=== PATIENT | male | born 1940 | race Caucasian/White ===

== ENCOUNTER 2024-06-23 02:08 | Emergency (ER) | payer OTHER, SELFPAY ==
--- NOTE | ~2024-06-23 | CT_ITS ---
EXAMINATION: CT brain wo con DATE: 06/23/2024 04:23 INDICATION: Fall. TECHNIQUE: Computed tomography (CT) of the head was performed without intravenous contrast. The mA wa s adjusted according to patient size. Iterative reconstruction technique was employed. The dose-lengt h product was 756.67 mGy-cm. COMPARISON: None FINDINGS: There are old infarcts in the right frontal, parietal, and occipital lobes, right basal dean glia, and anterior limb right internal capsule. There is no intracranial hemorrhage, acute infarction , or abnormal intracranial mass lesion. There are scattered areas of low attenuation in the cerebral white matter, which is within normal limits for the patient's age. There is ex vacuo dilatation of ri ght lateral ventricle. There are likely changes of ocular lens replacement surgeries. There is mild m ucosal thickening in the paranasal sinuses. The mastoid air cells are normal. IMPRESSION: 1. 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 Reviewed, dictated and finalized at location A. TIAN BLIND ASSEMBLER IMPRESSION: 1. 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
--- NOTE | ~2024-06-23 | XR_ITS ---
EXAMINATION: XR knee LT 3V DATE: 06/23/2024 04:52 INDICATION: Fall. TECHNIQUE: 4 views of left knee were obtained. COMPARISON: None. FINDINGS: Alignment is normal. No fracture. The patella is bipartite. There is mild tricompartmental osteoarthritis. There is a small knee joint effusion. IMPRESSION: 1. Mild left knee osteoarthritis. 2. Small left knee joint effusion. Reviewed, dictated and finalized at location A. TS MEDICINE COORDINATOR
--- NOTE | ~2024-06-23 | XR_ITS ---
EXAMINATION: XR hip LT 2V w AP pelvis DATE: 06/23/2024 04:52 INDICATION: Fall. TECHNIQUE: An anteroposterior view of the pelvis and 2 views of left hip were obtained. COMPARISON: None. FINDINGS: There is lumbar levocurvature and severe spondylosis. No fracture. There is mild osteoarthr itis of the hips. IMPRESSION: 1. Mild osteoarthritis of the hips. Reviewed, dictated and finalized at location A. THERAPIST
[2024-06-23 02:15] VITALS: BP 98/58; PULSE 84; RESP 16; TEMP 36.8; O2SAT 97
--- NOTE | 2024-06-23 02:15 | ECG_ITS ---
Test Date: 2024-06-23 02:18:58 Measurements Intervals [place] Rate: 84 P: -30 MA: 153 QRS: 20 QRSD: 86 T: 62 QT: 351 QTc: 416 Interpretive Statements SINUS RHYTHM NORMAL ECG No previous ECG available for comparison Electronically Signed On 06-23-2024 10:02:36 [employer] by Lisandro Hutchins D.O.
[2024-06-23 02:36] LABS: Basophils Absolute Auto 0.1 K/mm3 (0.0-0.1); Basophils Percent Auto 0.8 % (0.2-1.2); Eosinophils Absolute Auto 0.3 K/mm3 (0-0.3); Eosinophils Percent Auto 3.7 % (0-4.4); Hematocrit 37.9 % (42.0-52.0); Immature Granulocyte Absolute 0.03 K/mm3 (0.00-0.031); Immature Granulocyte Percent A 0.4 % (0-0.5); Lymphocytes Absolute Auto 2.89 K/mm3 (0.9-3.2); Lymphocytes Percent Auto 36.8 % (18.3-44.2); Mean Corpuscular HGB Conc 34.3 g/dl (32-36); Mean Corpuscular Hemoglobin 30.2 pg (26-34); Mean Corpuscular Volume 88.1 fl (80-100); Mean Platelet Volume 9.4 fl (7.4-10.4); Monocytes Absolute Auto 0.9 K/mm3 (0.1-0.6); Neutrophils Absolute Auto 3.7 K/mm3 (1.3-6.7); Neutrophils Percent Auto 46.3 % (45.5-73.1); Platelet Count Result 236 k/mm3 (150-375); Red Cell Distribution Width 11.7 % (11.5-14.5); White Blood Count 7.9 K/mm3 (4.5-10.0)
--- OUTSIDE RECORDS SUMMARY | 2024-06-23 02:43 | XMS_ITS | Encounter Summary ---
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 This section includes the names of all active insurance providers for the patient. Insurance Provider Type of Coverage Plan Name Start of Policy Coverage End of Policy Coverage Group Number Member ID Insurance Provider's Telephone Number Policy Ballesteros's Name Patient's Relationship to Policy Ballesteros MEDICARE (WNR) MEDICARE (M) PART A Dec 21, 2002 PART A [id number] [facility] JAK LUNA PATIENT MEDICARE (WNR) MEDICARE (M) PART A Dec 21, 2002 PART A [id number] [phone] [id number] JAK LUNA PATIENT Selected Encounter This section includes the information on record at [place] for the Encounter. Date/Time Encounter Type Encounter Description Reason Provider Source Jun 08, 2024 01:00 PM OFFICE O/P NEW MOD 45 MIN PRIMARY CARE/MEDICINE ICD-10-CM E78.5 Hyperlipidemia, unspecified [place],THERE [facility] I[facility] Encounter Template Text not used by [place] Assessments - Encounter Diagnoses This section includes the primary and secondary diagnoses documented for the Encounter. Date/Time Primary/Secondary Diagnosis Diagnosis Name Provider Source Jun 08, 2024 01:54 PM PRIMARY Hyperlipidemia, unspecified [facility]IDE,THERE [facility] Jun 08, 2024 01:54 PM SECONDARY Benign prostatic hyperplasia without lower urinry tract symp [place]IDE,THERE [facility] Jun 08, 2024 01:54 PM SECONDARY Cerebral infarction, unspecified [place]QUAIDE,THERE [facility] Jun 08, 2024 01:54 PM SECONDARY Essential (primary) hypertension [place]QUAIDE,THERE [facility] Jun 08, 2024 01:54 PM SECONDARY Mixed incontinence MCQUAIDE,THERE [facility] Jun 08, 2024 01:54 PM SECONDARY Other vitamin B12 deficiency anemias [place]QUAIDE,THERE [facility] Plan of Treatment: Future Appointments (+ 6 months) and Future Tests (+/- 45 days) The Plan of Treatment section includes future care activities for the patient from all [place] [facility] This section includes future appointments and future orders which are active, pending or scheduled. Future Appointments This section includes appointments that were scheduled to occur 6 months from the date of the Encounter, up to a maximum of 20 appointments. The data comes from all [facility]. Appointment Date/Time Appointment Type Appointme nt Facility Name October 18, 2024 08:00 AM AMBULATORY - NONE [facility] October 18, 2024 09:00 AM AMBULATORY - MEDICINE [facility] NEELIMA [facility] Active, Pending, and Scheduled Orders This section includes a listing of several types of active, pending, and scheduled orders, including clinic medications orders, diagnostic test orders, procedure orders and consult orders; where the start date of the order is 45 days before the date of the Encounter or 45 days after the date of theEncounter. The data comes from all [facility]. Test Date/Time Test Type Test Details Facility Name Jun 08, 2024 12:00 AM Laboratory - Chemi stry Order URINALYSIS (STL-PB) URINE - CLEAN CATCH [facility] Jun 08, 2024 12:00 AM Laboratory - Chemi stry Order MICRAL/CREAT PROFILE (STL) URINE YELLOW [facility] Jun 08, 2024 12:00 AM Laboratory - Chemi stry Order B12 GOLD/RED SST SERUM SP [facility] Lab Results: +/- 30 days of the encounter This section includes the Chemistry and Hematology Lab Results on record with [place] for the patient. Radiology Reports and Pathology Reports are provided separately, in subsequent sections. Lab Results This section contains the Chemistry/Hematology Results that were resulted 30 days before or 30 daysafter the date of the Encounter. Date/Time Source Result Type Result - Unit Interpretation Reference Range Comment Jun 08, 2024 02:10 PM [facility] CBC Specimen Type: BLOOD No comment entered. Ordering Provider: ASHLEY SCHNEIDER NAE Report Released Date/Time: Jun 08, 2024 07:39 AM Reporting Lab: [facility] [facility] [phone] Performing Lab: [facility] #1 [facility] [phone] WBC 9.1 10*3/uL 3.6-11.2 RBC 4.54 10*6/uL 4.10-5.70 HGB 13.6 g/dL 13.1-16.8 HCT 39.4 38.2-48.4 MCV 86.8 fL 80.0-100.0 MCH 30.0 pg 27.0-34.0 MCHC 34.5 g/dL 33.0-36.0 PLT 271 10*3/uL 150-400 MPV 9.1 fL 7.5-11.2 RDW 11.6 L 11.8-15.1 LYMPHOCYTES, AUTO % 35 MONOCYTES, AUTO % 9 NEUTROPHILS, AUTO % 54 EOSINOPHILS, AUTO % 1 BASOPHILS, AUTO % 1 LYMPHOCYTES, ABSOLUTE 3.15 10*3/uL 0.77-4.50 MONOCYTES, ABSOLUTE 0.85 10*3/uL H 0.19-0.80 NEUTROPHILS, ABSOLUTE 4.93 10*3/uL 2.10-8.00 EOSINOPHILS, ABSOLUTE 0.11 10*3/uL 0.00-0.60 BASOPHILS, ABSOLUTE 0.06 10*3/uL 0.00-0.20 Jun 08, 2024 02:10 PM [facility] COMPREHENSIVE METABOLIC PANEL Specimen Type: PLASMA Comment: No hemolysis noted. Ordering Provider: ASHLEY SCHNEIDER NAE Report Released Date/Time: Jun 08, 2024 07:39 AM Reporting Lab: [facility] [phone] Performing Lab: [facility] #1 [place] [address] CREATININE 0.91 mg/dL 0.70-1.30 UREA NITROGEN 16.5 mg/dL 9.0-25.0 GLUCOSE 97 mg/dL 72-99 SODIUM 139 meq/L 136-145 POTASSIUM 4.0 meq/L 3.5-5.0 CHLORIDE 106 meq/L 98-107 CARBON DIOXIDE 23 meq/L 22-31 CALCIUM 10.1 mg/dL 8.4-10.4 PROTEIN 7.6 g/dL 6.0-8.6 ALBUMIN 4.0 g/dL 3.4-5.0 TOTAL BILIRUBIN 0.5 mg/dL 0.2-1.2 ALKALINE PHOSPHATASE 45 U/L 40-150 AST/SGOT 26 U/L 5-34 ALT/SGPT 9 U/L 8-40 EGFR (CKD-EPI 2020) 82.08 >60 Jun 08, 2024 02:10 PM [facility] TSH (MA-PB) Specimen Type: SERUM No comment entered. Ordering Provider: AUBRIE SCHNEIDER Report Released Date/Time: Jun 08, 2024 07:39 AM Reporting Lab: [facility]1 [facility] [phone] Performing Lab: [facility] #1 [place] [phone] TSH 3.557 u[IU]/mL 0.470-5.000 Jun 08, 2024 02:10 PM [facility] B12 Specimen Type: SERUM No comment entered. Ordering Provider: AUBRIE SCHNEIDER Report Released Date/Time: Jun 08, 2024 07:39 AM Reporting Lab: [facility] [facility] [phone] Performing Lab: [facility] #1 [place] [phone] B12 1214 pg/mL H 213-816 Jun 08, 2024 02:10 PM [facility] LIPID PANEL (STL) Specimen Type: PLASMA Comment: No hemolysis noted. Ordering Provider: ASHLEY SCHNEIDER NAE Report Released Date/Time: Jun 08, 2024 07:39 AM Reporting Lab: [facility] [facility] [phone] Performing Lab: [facility]1 [facility] [phone] CHOLESTEROL 192 mg/dL 0-200 TRIGLYCERIDE 104 mg/dL 0-150 CALCULATED LDL 115 mg/dL See Interp HDL(New) 56 mg/dL > 40 Jun 08, 2024 02:10 PM [facility] HGA1C Specimen Type: BLOOD No comment entered. Ordering Provider: ASHLEY SCHNEIDER NAE Report Released Date/Time: Jun 08, 2024 07:39 AM Reporting Lab: [facility] [facility] [phone] Performing Lab: [facility] #1 [facility] [phone] HGA1C 6.2 H 4.0-6.0 Jun 08, 2024 02:10 PM [facility] VITAMIN D, 25-HYDROXY Specimen Type: SERUM No comment entered. Ordering Provider: ASHLEY SCHNEIDER NAE Report Released Date/Time: Jun 08, 2024 07:39 AM Reporting Lab: [facility] [facility] [phone] Performing Lab: [facility] #1 [facility] [phone] VITAMIN D, 25-HYDROXY 43.7 ng/mL 30-96 Jun 08, 2024 02:10 PM [facility] FOLATE (STL-MA) Specimen Type: SERUM No comment entered. Ordering Provider: ASHLEY SCHNEIDER NAE Report Released Date/Time: Jun 08, 2024 01:32 PM Reporting Lab: [facility]1 [facility] [phone] Performing Lab: [facility] #1 [facility] [phone] FOLATE (STL-MA) 38.6 ng/mL H 7-20 Vital Signs: All taken on the encounter date This section contains inpatient and outpatient Vital Signs collected on the date of the Encounter. Date/Time Temperature Pulse Blood Pressure Respiratory Rate SP02 Pain Height Weight Body Mass Index Source Jun 08, 2024 12:56 PM 98 96 100/69 20 95 4 68 185.9 28 [facility] Social History: Smoking Status (Most current) and Tobacco Use (All prior to encounter date) This section includes the most current, and the historical, smoking and tobacco- related health factors from the [place] facility where the Encounter took place. Current Smoking Status This section includes the most current smoking, or tobacco-related health factor, from the [place] facility where the Encounter took place. Date/Time Current Smoking Status Comment Nathaniel meek Jun 08, 2024 01:00 PM VA-TOBACCO USE FOR SARAH CIGARETTES [facility] Tobacco Use History This section includes a history of the smoking, or tobacco-related health factors, that were collected on or before the date of the Encounter. The data comes from the [place] facility where the Encounter took place. Date/Time Smoking Status/Tobacco Use Comment F tae Jun 08, 2024 01:00 PM VA-TOBACCO USE FOR SARAH CIGARETTES [facility] Encounter Notes: All associated encounter notes This section contains the clinical notes associated to the Encounter. Date/Time Encounter Note(s) Provider Source Jun 18, 2024 02:15 PM PHYSICIAN LETTERS: LOCAL TITLE: TEST RESULT GENERAL LETTER STL STANDARD TITLE: PHYSICIAN LETTERS DATE OF NOTE: JUN 18, 2024@14:15 ENTRY DATE: JUN 18, 2024@14:15:51 AUTHOR: NANDA SCHNEIDER COSIGNER: URGENCY: STATUS: COMPLETED [facility] [address] [place] [address] JUN 18, 2024 JAK COTA [address] [place], [place] [address] Dear Jak Cota, I would like to update you on your recent test results. LIPID PROFILE - High cholesterol and triglycerides (lipids) are risk factors for heart disease. Your cholesterol should fall between 140 and 200, and your triglycerides levels should be less than or equal to 150. HDL is the good cholesterol and should ideally be greater than 40. LDL is the bad cholesterol and optimal levels should be less than 100 (near optimal is between 100 and 129). TRIGLYCERIDE 104 mg/dL 06/08/2024 14:10 CHOLESTEROL 192 mg/dL 06/08/2024 14:10 HDL(New) 56 mg/dL 06/08/2024 14:10 CALCULATED LDL 115 mg/dL 06/08/2024 14:10 These readings are within normal limits. Continue taking Simvastatin, same dose . GLUCOSE - Your blood sugar or glucose level result GLUCOSE GLUCOSE 97 mg/dL 06/08/2024 14:10 These readings are within normal limits. HEMOGLOBIN A1C - Gives us information about your diabetes (sugar or glucose) control over the past 3 months. Your target is to keep your A1C below 6 %. HGA1C 6.2 H % 06/08/2024 14:10 These readings are within normal limits. -- The HgA1c was mildly elevated, you have Prediabetes, will monitor for now. No treatment due to advanced age. CBC - A complete blood count (CBC) gives important information about the kinds and numbers of cells in the blood, especially red blood cells, white blood cells, and platelets. HGB 13.6 g/dL 06/08/2024 14:10 HEMATOCRIT 39.4 % (06/08/24 14:10) PLT 271 10*3/uL 06/08/2024 14:10 WHITE BLOOD COUNT 9.1 10*3/uL (06/08/24 14:10) These readings are within normal limits. B12 - Helps maintain healthy nerve cells, red blood cells, and is also needed to make DNA. B12 1214 H pg/mL 06/08/2024 14:10 These results are abnormal. B12 is mildly elevated, will monitor for now. CHEM 7 - This is important information about the current status of your kidneys, liver, and electrolyte and acid/base balance as well as of your blood sugar and blood proteins. SODIUM 139 mEq/L 06/08/2024 14:10 POTASSIUM 4.0 mEq/L 06/08/2024 14:10 CHLORIDE 106 mEq/L 06/08/2024 14:10 UREA NITROGEN 16.5 mg/dL 06/08/2024 14:10 CREATININE 0.91 mg/dL 06/08/2024 14:10 CALCIUM 10.1 mg/dL 06/08/2024 14:10 CARBON DIOXIDE 23 mEq/L 06/08/2024 14:10 GLUCOSE 97 mg/dL 06/08/2024 14:10 EGFR (CKD-EPI 2020) 82.08 06/08/2024 14:10 These readings are within normal limits. LIVER FUNCTION PANEL - These are tests for liver function: PROTEIN 7.6 g/dL 06/08/2024 14:10 ALBUMIN 4.0 g/dL 06/08/2024 14:10 TOTAL BILIRUBIN 0.5 mg/dL 06/08/2024 14:10 ALKALINE PHOSPHATASE 45 U/L 06/08/2024 14:10 AST/SGOT 26 U/L 06/08/2024 14:10 ALT/SGPT 9 U/L 06/08/2024 14:10 These readings are within normal limits. TSH - Thyroid-stimulating hormone (also known as TSH or thyrotropin) is a peptide hormone synthesized and secreted by thyrotrope cells in the anterior pituitary gland, which regulates the endocrine function of the thyroid gland. TSH TSH 3.557 uIU/mL 06/08/2024 14:10 These readings are within normal limits. VITAMIN D - Helps promote the proper utilization of calcium and phosphorus, thereby producing proper bone maintenance. VITAMIN D, 25-HYDROXY 43.7 ng/mL 06/08/2024 14:10 These readings are within normal limits. PLAN Please continue your treatment as we discussed during your visit. If you have any questions please call your counter caser. I look forward to seeing you at your next clinic appointment. Thank you for choosing the [facility] for your healthcare. FUTURE APPOINTMENTS: 12/13/2024 14:00 BREANNE-PACT E3 PCP Sincerely, NANDA BARRIGA [facility] ADULT NURSE PRACTITIONER JAK COTA [facility] Jun 15, 2024 01:02 PM PHYSICIAN LETTERS: LOCAL TITLE: TEST RESULT GENERAL LETTER ST STANDARD TITLE: PHYSICIAN LETTERS DATE OF NOTE: JUN 15, 2024@13:02 ENTRY DATE: JUN 15, 2024@13:02:33 AUTHOR: NANDA SCHNEIDER EXP COSIGNER: URGENCY: STATUS: COMPLETED [facility] [address] [place] [address] JUN 15, 2024 JAK COTA [address] [place], [place] [address] Dear Jak Cota, I would like to update you on your recent test results. LIPID PROFILE - High cholesterol and triglycerides (lipids) are risk factors for heart disease. Your cholesterol should fall between 140 and 200, and your triglycerides levels should be less than or equal to 150. HDL is the good cholesterol and should ideally be greater than 40. LDL is the bad cholesterol and optimal levels should be less than 100 (near optimal is between 100 and 129). TRIGLYCERIDE 104 mg/dL 06/08/2024 14:10 CHOLESTEROL 192 mg/dL 06/08/2024 14:10 HDL(New) 56 mg/dL 06/08/2024 14:10 CALCULATED LDL 115 mg/dL 06/08/2024 14:10 These readings are within normal limits. GLUCOSE - Your blood sugar or glucose level result GLUCOSE GLUCOSE 97 mg/dL 06/08/2024 14:10 These readings are within normal limits. HEMOGLOBIN A1C - Gives us information about your diabetes (sugar or glucose) control over the past 3 months. Your target is to keep your A1C below 6 %. HGA1C 6.2 H % 06/08/2024 14:10 These results are abnormal. -- Be mindful of your diet, you have Prediabetes -- reduce carbohydrate intake in your diet . CBC - A complete blood count (CBC) gives important information about the kinds and numbers of cells in the blood, especially red blood cells, white blood cells, and platelets. HGB 13.6 g/dL 06/08/2024 14:10 HEMATOCRIT 39.4 % (06/08/24 14:10) PLT 271 10*3/uL 06/08/2024 14:10 WHITE BLOOD COUNT 9.1 10*3/uL (06/08/24 14:10) These readings are within normal limits. B12 - Helps maintain healthy nerve cells, red blood cells, and is also needed to make DNA. B12 1214 H pg/mL 06/08/2024 14:10 These results are abnormal. B12 is elevated - may want to reduce supplement dose CHEM 7 - This is important information about the current status of your kidneys, liver, and electrolyte and acid/base balance as well as of your blood sugar and blood proteins. SODIUM 139 mEq/L 06/08/2024 14:10 POTASSIUM 4.0 mEq/L 06/08/2024 14:10 CHLORIDE 106 mEq/L 06/08/2024 14:10 UREA NITROGEN 16.5 mg/dL 06/08/2024 14:10 CREATININE 0.91 mg/dL 06/08/2024 14:10 CALCIUM 10.1 mg/dL 06/08/2024 14:10 CARBON DIOXIDE 23 mEq/L 06/08/2024 14:10 GLUCOSE 97 mg/dL 06/08/2024 14:10 EGFR (CKD-EPI 2020) 82.08 06/08/2024 14:10 These readings are within normal limits. LIVER FUNCTION PANEL - These are tests for liver function: PROTEIN 7.6 g/dL 06/08/2024 14:10 ALBUMIN 4.0 g/dL 06/08/2024 14:10 TOTAL BILIRUBIN 0.5 mg/dL 06/08/2024 14:10 ALKALINE PHOSPHATASE 45 U/L 06/08/2024 14:10 AST/SGOT 26 U/L 06/08/2024 14:10 ALT/SGPT 9 U/L 06/08/2024 14:10 These readings are within normal limits. TSH - Thyroid-stimulating hormone (also known as TSH or thyrotropin) is a peptide hormone synthesized and secreted by thyrotrope cells in the anterior pituitary gland, which regulates the endocrine function of the thyroid gland. TSH TSH 3.557 uIU/mL 06/08/2024 14:10 These readings are within normal limits. VITAMIN D - Helps promote the proper utilization of calcium and phosphorus, thereby producing proper bone maintenance. VITAMIN D, 25-HYDROXY 43.7 ng/mL 06/08/2024 14:10 These readings are within normal limits. PLAN Please continue your treatment as we discussed during your visit. If you have any questions please call your counter caser. I look forward to seeing you at your next clinic appointment. Thank you for choosing the [facility] for your healthcare. FUTURE APPOINTMENTS: 12/13/2024 14:00 BREANNE-PACT E3 PCP Sincerely, NANDA BARRIGA [facility] ADULT NURSE PRACTITIONER JAK COTA,[facility] Jun 08, 2024 01:08 PM PRIMARY CARE INITI AL EVALUATION NOTE: LOCAL TITLE: PRIMARY CARE PROVIDER NEW VISIT ST STANDARD TITLE: PRIMARY CARE INITIAL EVALUATION NOTE DATE OF NOTE: JUN 08, 2024@13:08 ENTRY DATE: JUN 08, 2024@13:08:54 AUTHOR: NANDA SCHNEIDER EXP COSIGNER: URGENCY: STATUS: COMPLETED Patient is 84 y/o male Reason for visit:New Patient Chief Complaint: Scheduled for new patient evaluation at [place] [id number] History of Present Illness: Transferring from [place], [place] Living in [facility], last 6 weeks. SonNorris is present today. Pt is a poor historian. Continues to drive, ambulates with a cane, fell two days prior walking in the snow to the car. Denies hitting his head. Hyperlipidemia, taking Simvatatin 20mg daily. Fasting for repeat labs. Low Viamin D, taking Cholecalicif 25mcg daily. HTN, taking Lisinopril 10mg daily. S/P CVA, denies any residual weakness. Taking Clopidogrel 75mg daily and ASA 81mg daily. Periodic bowel/bladder incontience, history of diarrhea, 10-15 years. No prior CRC. No family history of colon cancer. BPH without LUTS, taking Tamsulosin 0.4mg daily and Finasteride 5mg daily. Urinates 4-5 times/night. No family hx of prostate cancer. Low folic acid, taking Folic Acid 1mg daily. Low B12, taking Cyanocobalamin 500mcg daily. Surgical HX: Cataracts, bilateral - 2022 Problem List: 1) BPH - benign prostatic hyperplasia 2) HTN - Hypertension 3) HLD - Hyperlipidemia 4) Cerebral infarction Immunization: ADMINISTERED Immunization Series Date Facility Reaction Info INFLUENZA, HIGH-DOSE, TRIVALENT,* 1 06/14/2013 IZG:[facility] IIS CONTRAINDICATED No data available REFUSED ======= No data available * Value is truncated; see the Detailed Immunizations Health Summary Component[DIM] for complete text Family History: Mother 79 y/o, unknown. Father 77 y/o, unknown Social History: Smoking - Quit 2012, former smoking 3 ppd times 10-20 years Illict drugs - none ETOH - Quit in 2012. 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 GED., Spouse of CHF History: Service Connected: NO Rated Disabilities: NONE STATED Period of Service: [place] [employer] Status Indicated? BRANCH(ES) OF SERVICE: [place] SPECIFIC YEARS OF SERVICE: 4-years LOCATION OF SERVICE: no combat ENVIRONMENTAL EXPOSURE: chemicals Medication Review: The essential med list for review which includes the patient's active VA prescriptions and if applicable, remote VA prescriptions, non-VA prescriptions, and discontinued VA prescriptions within the last 90 days and known allergies including local and remote allergies have been reviewed. Allergies:Patient has answered NKA Active and Recently Outpatient Medications (excluding Supplies): No Medications Found Review of Systems: General:No Complaints of fever, chills, malaise, fatigue, night sweats, weight gain, swollen glands, temp intolerance. -- WEIGHT LOSS - 10#, 1 YEAR Integumentary (skin): No complaints of diaphorectic, bruise, rash, lesions Ear, Nose, Throat: No complaints of blurred vision, glaucoma, cataracts, headache, syncope, dizziness, vertigo, rhinitis, epistaxis, congestion, sinus pain, sore neck, hoarseness, sore throat, oral lesions, earache. -- HEARING LOSS Respiratory: No complaints of wheezing, hemoptysis, cough. -- DYSPNEA Cardiovascular: No complaints of SOB, cough, wheezing, chest pain, heart murmur, hemoptysis, orthopnea/PND, palpatations, pedal edema, claudication. Gastrointestinal: No complaints of weight change, poor appetite, heartburn, nausea, vomiting, anorexia, abdominal pain, dysphagia, distention, cancer, reflux, ulcer, food, melana, bloody stools, hemorrhoids. -- DIARRHEA, CONSIPATION, PERIODIC INCONTIENCE Urinary: No complaints of hematuria, nocturia, polyuria, dysuria, pain/buring on urination, hesitancy, urinary retention, incontinence. -- URINATES 4-5 TIMES/NIGHT Musculoskeletal: No complaints of weakness, pain, stiffness, back pain, joint pain, arthritis, edema, DVT, claudification, gout.-- BILATERAL HIPS AND LOW BACK PAIN, RATES 4/10 Neurological: No complaints of weakness, tremors, irritable, sleep disturbance, memory loss, headache, unsteady, lethargic, dizziness, syncope, paralysis, numbness, seizures, impaired speech, depression, alcoholism, mood changes, post-tramatic stress disorder, suicidal thoughts -- SLEEPING 7-8 HOURS/NIGHT. ANXIETY Physical Exam VITALS (most recent, as listed in the electronic record): B/P: 100/69 (06/08/2024 12:56) Pulse: 96 (06/08/2024 12:56) Temperature: 98 F [36.7 C] (06/08/2024 12:56) Weight: 185.9 lb [84.32 kg] (06/08/2024 12:56) Height: 68 in [172.7 cm] (06/08/2024 12:56) BMI: 28.3 Pain: 4 (06/08/2024 12:56) (0-10 scale) HEENT: Head is normocephalic. Eyes: CECIL. Sclera white, conjunctiva pink. Ears: No discharge or erythma to ear canal. TMs visualized, translucent, and without erythema. Nose: Nasal mucosa pink, turbinate septum is midline, no sinus tenderness. Oral pharynx: mucosa is pink, dentition is missing, pharynx without erythema/exudate. Neck: trachea is midline, neck supple; thyroid symmetric Lymph nodes: no swelling or tenderness palpated. Resp: Diminished breath sounds throughout Cardiac: S1S2 No murmurs/clicks, or rubs RRR. No JVD present. No carotid bruits per auscultation. Abd: soft, nontender, bowel sounds present per auscultation, percussion. Musculoskeletal: ROM WNL No erythema, warmth or edema noted Pysche: mood and affect wnl, slow to respond. No slurred speech Assessment/Plan: 1) Hyperlipidemia, taking Simvastatin, repeat CMP and Lipids. 2) Low Vitamin D, repeat Vitamin D level. 3) HTN, taking Lisinopril 10mg daily. 4) S/P CVA, denies any residual weakness. Taking Clopidogrel 75mg daily and ASA 81mg daily. 5) Bowel incontinence, hx of diarrhea, offered consideration of evaluation. Declined today. 6) BPH without LUTS, taking Tamsulosin 0.4mg daily and Finasteride 5mg daily. Urinates 4-5 times/night. No family hx of prostate cancer. 7) Low folic acid, taking Folic Acid 1mg daily. 8) Low B12, taking Cyanocobalamin 500mcg daily. 9) , screening labs completed RTC: 6 months CLINICAL REMINDERS COMPLETED Sexual Orientation - CP,L,N,P,PH,PS,S,U: The patient thinks of their sexual orientation as: Straight or Heterosexual Alcohol Use Screen (AUDIT-C) - V: Alcohol Screen: SCREEN FOR ALCOHOL (AUDIT-C) An alcohol screening test (AUDIT-C) was negative (score=0). 1. How often did you have a drink containing alcohol in the past year? Consider a drink to be a 12 ounce can or bottle of regular beer, 8 ounces of malt liquor, a 5 ounce glass of table wine, or a 1.5 ounce shot of liquor (like scotch, gin, or vodka). Never 2. How many drinks containing alcohol did you have on a typical day when you were drinking in the past year? Response not required due to responses to other questions. 3. How often did you have six or more drinks on one occasion in the past year? Response not required due to responses to other questions. Frail/Elderly Screen: ADL Screen - [place] Index of [place] in Activities of Daily Living Bathing: (3 Points) Receives no assistance (gets in and out of tub by self, if tub is usual means of bathing) Dressing: (3 Points) Gets clothes and gets completely dressed without assistance. Toileting: (3 Points) Goes to toilet room , cleans self, and arranges clothes without assistance (may use object for support such as cane, walker, or wheelchair, and may manage own night bedpan or commode, emptying same next morning) Transferring: (3 Points) Moves in and out of bed and in and out of chair without assistance (may be using object for support, such as cane or walker) Continence: (2 Points) Has occasional accidents or urination or bowels Feeding: (3 Points) Feeds self without assistance Total Score: 17 Points 18 = High (patient independent) 6 = Low (patient very dependent) Toxic Exposure Screening - CP,DI,L,NS,P,PH,S,U: The Howard/caregiver was asked if they believe the experienced any toxic exposure(s), such as Airborne Hazards and [place], [place] War related exposures, Agent [place], Radiation, contaminated water at [place] or other such exposures, 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 The /caregiver was informed that we will continue to ask this screening question every 5 years. They can contact their provider/healthcare team if they have concerns about exposures and would like to be screened sooner. Printed information was offered and provided if desired. /kraig/ NANDA COATESBTahirCTahir [facility] ADULT NURSE PRACTITIONER Signed: 06/08/2024 13:54 [facility] Jun 08, 2024 12:58 PM NURSING NOTE: LOCAL TITLE: V15 PACT FACE TO FACE NOTE STL STANDARD TITLE: NURSING NOTE DATE OF NOTE: JUN 08, 2024@12:58 ENTRY DATE: JUN 08, 2024@12:59:02 AUTHOR: EMILY QUAN COSIGNER: URGENCY: STATUS: COMPLETED Provider Visit: Patient Identifiers : Full Name Date of Reason for visit: Established Follow-Up Mode of Arrival: Assistive Device: Cane Allergy Review: Patient has answered NKA Allergy list reviewed and remains current. Recent Vital Signs: Temperature: 98 F [36.7 C] (06/08/2024 12:56) Pulse: 96 (06/08/2024 12:56) Respiration: 20 (06/08/2024 12:56) B/P: 100/69 (06/08/2024 12:56) Pain: 4 (06/08/2024 12:56) Wt: 185.9 lb [84.32 kg] (06/08/2024 12:56) Ht: 68 in [172.7 cm] (06/08/2024 12:56) BMI: 28.3 POX: 95% (06/08/2024 12:56) Would you like to discuss any personal problem, family problem, alcohol use, drug use, or a mental or emotional illness? No Contact provided Primary Care phone number and encouraged to call if any questions or concerns. Review that after hours nurse line [phone] and emergency room are available 13/12 for patient use. Contact verbalized good understanding. Suicide Screen - V: C-SSRS Screening [place]-Suicide Severity Rating Scale (C-SSRS Screener) 1. Over the past month, have you wished you were or wished you could go to sleep and not wake up? No 2. Over the past month, have you had any actual thoughts of killing yourself? No 3. Over the past month, have you been thinking about how you might do this? Response not required due to responses to other questions. 4. Over the past month, have you had these thoughts and had some intention of acting on them? Response not required due to responses to other questions. 5. Over the past month, have you started to work out or worked out the details of how to kill yourself? Response not required due to responses to other questions. 6. If yes, at any time in the past month did you intend to carry out this plan? Response not required due to responses to other questions. 7. In your lifetime, have you ever done anything, started to do anything, or prepared to do anything to end your life (for example, collected pills, obtained a gun, gave away valuables, went to the roof but didn't jump)? No 8. If YES, was this within the past 3 months? Response not required due to responses to other questions. Depression Screening - V: Perform PHQ-2 A PHQ-2 screen was performed. The score was 0 which is a negative screen for depression. Over the past two weeks, how often have you been bothered by the following problems? 1. Little interest or pleasure in doing things Not at all 2. Feeling down, depressed, or hopeless Not at all Homelessness/Food Insecurity Screen - DI,L,N,P,PH,PS,S,U: In the past 2 months, have you been living in stable housing that you own, rent, or stay in as part of a household? Yes - Living in stable housing. Are you worried or concerned that in the next 2 months you may NOT have stable housing that you own, rent, or stay in as part of a household? No - Not worried about housing near future The Howard reports the following: Within the past 12 months, you worried whether your food would run out before you got money to buy more. Never true Within the past 12 months, the food you bought just didn't last and you didn't have money to get more. Never true PTSD Screening - V: PC-PTSD-5 A PTSD screening test (PC-PTSD-5) was negative (score=0). IN THE PAST MONTH, have you ever had any experience that was so frightening, horrible or traumatic. For example: A serious accident or fire a physical or sexual assault or abuse An earthquake or flood A war Seeing someone be killed or seriously injured Having a loved one through homicide or suicide 1. Have you ever experienced this kind of event? NO 2. Had nightmares about the event(s) or thought about the event(s) when you did not want to? Response not required due to responses to other questions. 3. Tried hard not to think about the event(s) or went out of your way to avoid situations that reminded you of the event(s)? Response not required due to responses to other questions. 4. Been constantly on guard, watchful, or easily startled? Response not required due to responses to other questions. 5. [place] numb or detached from people, activities, or your surroundings? Response not required due to responses to other questions. 6. [place] guilty or unable to stop blaming yourself or others for the event(s) or any problems the event(s) may have caused? Response not required due to responses to other questions. Tobacco Use Screening - AT,DE,L,M,N,P,PH,PS,RT,S,U : The patient is a former cigarette smoker. The patient has never used other types of tobacco. Learning Assessment: - * This patient's learning ABILITIES, BARRIERS to learning, CULTURAL and PENTECOSTAL beliefs, and learning PREFERENCES were assessed. Following are findings of note: Patient reads well. LANGUAGE Patient reports that Polish is preferred language for healthcare. Patient reports learning preference is to refer to handouts. Patient reports learning preference is attending one-to-one or group demonstrations. /kraig/ EMILY QUAN LPN LICENSED PRACTICAL NURSE Signed: 06/08/2024 13:01 EMILY QUAN [facility]
--- OUTSIDE RECORDS SUMMARY | 2024-06-23 02:43 | XMS_ITS | Encounter Summary ---
Author Name [facility] Address [address] [place] [address] Care Team Providers Care Cook Syrup Maker Name Role Phone NANDA SCHNEIDER Primary Care Provider MARLO Fernandez Primary Care Provider Marta flor Insurance Providers: All historical and current [...] PART A Dec 21, 2002 PART A [id number] [facility] JAK LUNA PATIENT MEDICARE (WNR) MEDICARE (M) PART A Dec 21, 2002 PART A [id number] [facility] JAK LUNA PATIENT Selected Encounter This section includes the information on record at [place] for the Encounter. Date/Time Encounter Type Encounter Description Reason Provider Source October 20, 2023 09:00 AM OFFICE O/P EST MOD 30 MIN PRIMARY CARE/MEDICINE ICD-10-CM M79.661 Pain in right lower leg MARLO POWELL Encounter Template Text not used by [facility] Assessments - Encounter Diagnoses This section includes the primary and secondary diagnoses documented for the Encounter. Date/Time Primary/Secondary Diagnosis Diagnosis Name Provider Source October 20, 2023 09:54 AM PRIMARY Pain in right lower leg [facility] October 20, 2023 09:54 AM SECONDARY Diarrhea, unspecified [facility] October 20, 2023 09:54 AM SECONDARY Hyperlipidemia, unspecified [facility] October 20, 2023 09:54 AM SECONDARY Other constipation [facility] October 20, 2023 09:54 AM SECONDARY Prsnl hx of TIA (TIA), and cereb infrc w/o resid deficits ALDO POWELL Plan of Treatment: Future Appointments (+ 6 months) and Future Tests (+/- 45 days) The Plan of Treatment section includes future care activities for the patient from all [place] treatmentfacilities. This section includes future appointments and future orders which are active, pending or scheduled. Future Appointments This section includes appointments that were scheduled to occur 6 months from the date of the Encounter, up to a maximum of 20 appointments. The data comes from all [place] treatment facilities. Appointment Date/Time Appointment Type Appointme nt Facility Name Oct 26, 2023 02:00 PM AMBULATORY - NONE [facility] Oct 28, 2023 08:00 AM [facility] - [facility] Nov 14, 2023 08:00 AM AMB[facility]ORY - NONE [facility] Dec 02, 2023 10:30 AM AMBULATORY - NONE [facility] Feb 16, 2024 02:00 PM AMBULATORY - [facility] Lab Results: +/- 30 days of the encounter This section includes the Chemistry and Hematology Lab Results on record with [place] for the patient. Radiology Reports and Pathology Reports are provided separately, in subsequent sections. Lab Results This section contains the Chemistry/Hematology Results that were resulted 30 days before or 30 daysafter the date of the Encounter. Date/Time Source Result Type Result - Unit Interpretation Reference Range Comment Nov 14, 2023 08:35 AM [facility] MICROSCOPIC URINALYSIS Specimen Type: URINE CLEAN CATCH No comment entered. Ordering Provider: ARTURO POWELL Report Released Date/Time: Nov 11, 2023 02:08 PM Reporting Lab: [facility] [address] [facility] [address] Performing Lab: [facility] [address] [facility] [address] UA WBC 6-10 /[HPF] H 0-5 UA BACTERIA FEW /[HPF] UA SQUAM EPITHELIAL 3-6 /[HPF] 0-5 UA RBC 3-6 /[HPF] H 0-2 Nov 14, 2023 08:35 AM [facility] URINALYSIS Specimen Type: URINE CLEAN CATCH No comment entered. Ordering Provider: ARTURO POWELL NE A Report Released Date/Time: Nov 11, 2023 02:08 PM Reporting Lab: [facility] [address] [place] [address] Performing Lab: [facility] [address] [place] [address] UA COLOR STRAW COLORLESS- YELLOW UA SPEC GRAV 1.010 1.005-1 .03 5 UA PH 8.0 [pH] 5-8 UA NITRITE 1+ Neg.-Neg UA UROBILINOGEN <2.0 mg/dL UA APPEARANCE 1+ UA GLUCOSE NORMAL NEG-TRACE UA PROTEIN - NEG UA BILI - NEG UA BLOOD 1+ NEG-TRACE UA KETONES - NEG-TRACE UA LEUK EST 250 H NEG-74 October 20, 2023 08:08 AM [facility] LIPID PROFILE (FV) Specimen Type: PLASMA No comment entered. Ordering Provider: ARTURO POWELL A Report Released Date/Time: Oct 21, 2022 03:50 PM Reporting Lab: [facility] [address] [place] [address] Performing Lab: [facility] [address] [place] [address] CHOLESTEROL, TOTAL (FV) 167 mg/dL 118-200 TRIGLYCERIDE (FV) 108 mg/dL <200 LDL CHOLESTEROL (CALCULATED) 93 mg/dL HDL CHOLESTEROL (FV) 52 mg/dL >40 October 20, 2023 08:08 AM [facility] RENAL+LIVER PROFILE Specimen Type: PLASMA No comment entered. Ordering Provider: ARTURO POWELL A Report Released Date/Time: Oct 21, 2022 03:50 PM Reporting Lab: [facility] [address] [place] [address] Performing Lab: [facility] [address] [place] [address] GLUCOSE (FV) 109 mg/dL 70-110 ALBUMIN (FV) 3.8 g/dL 3.4-5.0 AST (FV) 20 U/L 15-37 TOTAL BILIRUBIN (FV) 0.76 mg/dL 0.3-1.2 CHLORIDE (FV) 101 mmol/L 98-107 TOTAL PROTEIN (FV) 7.9 g/dL 6.1-7.9 SODIUM (FV) 134 mmol/L L 136-145 POTASSIUM (FV) 4.4 mmol/L 3.5-5.1 CO2 (FV) 25 mmol/L 21-32 UREA NITROGEN (FV) 15 mg/dL 6-20 CALCIUM (FV) 9.3 mg/dL 8.9-10.3 ALT (FV) 14 U/L 0-63 ALK. PHOS. (FV) 43 U/L 32-126 CREATININE (FV) 1.23 mg/dL .61-1.24 eGFR (CKD-EPI 2020) 58 L >90 October 20, 2023 08:[address] [facility] TSH (FV) Specimen Type: SERUM No comment entered. Ordering Provider: ARTURO POWELL Report Released Date/Time: Oct 21, 2022 03:50 PM Reporting Lab: [facility] [address] [facility] [address] Performing Lab: [facility] [address] [facility] [address] TSH () 3.89 u[IU]/mL 0.45-5.33 October 20, 2023 08:[address] [facility] CBC (FV) Specimen Type: BLOOD No comment entered. Ordering Provider: ARTURO POWELL A Report Released Date/Time: Oct 21, 2022 03:50 PM Reporting Lab: [facility] [address] [facility] [address] Performing Lab: [facility] [address] [place] [address] RDW (FV) 12.9 11.5-14.5 HCT (FV) 40.3 40-52 HGB (FV) 13.9 g/dL 13-18 PLT (FV) 306 10*3/uL 150-440 WBC (FV) 8.7 10*3/uL 3.8-10.6 RBC (FV) 4.73 10*6/uL 4.4-5.9 MCV (FV) 85.2 fL 80-100 MCH (FV) 29.3 pg 26-34 MCHC (FV) 34.4 g/dL 32-36 NE% (FV) 51.1 NE# (FV) 4.4 10*3/uL 2.4-7.6 LY% (FV) 34.7 LY# (FV) 3.0 10*3/uL 1.0-4.8 MO% (FV) 10.7 MO# (FV) 0.9 10*3/uL 0.1-1.0 EO% (FV) 2.3 EO# (FV) 0.2 10*3/uL 0.0-0.4 BA% (FV) 1.2 BA# (FV) 0.1 10*3/uL 0.0-0.2 October 20, 2023 08:08 AM [facility] VITAMIN B12 Specimen Type: SERUM No comment entered. Ordering Provider: ARTURO POWELL NE A Report Released Date/Time: Oct 21, 2022 03:50 PM Reporting Lab: [facility] [address] [facility] [address] Performing Lab: [facility] [address] [facility] [address] VITAMIN B12 (FV) 762 pg/mL 180-914 October 20, 2023 08:08 AM [facility] FOLIC ACID Specimen Type: SERUM No comment entered. Ordering Provider: ARTURO POWELL NE A Report Released Date/Time: Nov 22, 2022 04:51 PM Reporting Lab: [facility] [address] [place] [address] Performing Lab: [facility] October 20, 2023 08:08 AM [facility] VITAMIN D 25-OH Specimen Type: SERUM No comment entered. Ordering Provider: ARTURO POWELL NE A Report Released Date/Time: Nov 22, 2022 04:51 PM Reporting Lab: [facility] [address] [facility] [address] Performing Lab: [facility] [address] [facility] [address] VITAMIN D 25-OH 61.19 ng/mL 30-100 October 20, 2023 08:08 AM [facility] URINALYSIS Specimen Type: URINE Comment: Specimen reflexed to culture due to increased WBCs. Ordering Provider: ARTURO POWELL A Report Released Date/Time: Oct 21, 2022 03:50 PM Reporting Lab: [facility] [address] [place] [address] Performing Lab: [facility] [address] [place] [address] [place] [address] UA COLOR STRAW COLORLESS- YELLOW UA SPEC GRAV 1.009 1.005-1 .03 5 UA PH 7.5 [pH] 5-9 UA NITRITE 1+ Neg.-Neg UA UROBILINOGEN <2.0 mg/dL UA APPEARANCE - UA GLUCOSE NORMAL NEG-TRACE UA PROTEIN - NEG UA BILI - NEG UA BLOOD - NEG-TRACE UA KETONES - NEG-TRACE UA LEUK EST 500 H NEG-74 October 20, 2023 08:08 AM [facility] MICROSCOPIC URINALYSIS Specimen Type: URINE Comment: Specimen reflexed to culture due to increased WBCs. Ordering Provider: ARTURO POWELL A Report Released Date/Time: Oct 21, 2022 03:50 PM Reporting Lab: [facility] [address] [place] [address] Performing Lab: [facility] [address] [place] [address] [place] [address] UA WBC 16-20 /[HPF] H 0-5 UA BACTERIA MANY /[HPF] UA RBC NONE PRESENT /[HPF] 0-2 Vital Signs: All taken on the encounter date This section contains inpatient and outpatient Vital Signs collected on the date of the Encounter. Date/Time Temperature Pulse Blood Pressure Respiratory Rate SP02 Pain Height Weight Body Mass Index Source October 20, 2023 08:44 AM 7 [facility] October 20, 2023 08:40 AM 97.7 69 135/75 16 94 7 67 195.8 31 [facility] Social History: Smoking Status (Most current) and Tobacco Use (All prior to encounter date) This section includes the most current, and the historical, smoking and tobacco- related health factors from the [place] facility where the Encounter took place. Current Smoking Status This section includes the most current smoking, or tobacco-related health factor, from the [place] facility where the Encounter took place. Date/Time Current Smoking Status Comment Nathaniel meek October 19, 2023 03:00 PM VA-TOBACCO FORMER USER [facility] Tobacco Use History This section includes a history of the smoking, or tobacco-related health factors, that were collected on or before the date of the Encounter. The data comes from the [place] facility where the Encounter took place. Date/Time Smoking Status/Tobacco Use Comment F acility October 19, 2023 03:00 PM VA-TOBACCO QUIT 5 TO < 15 YRS [facility] October 19, 2022 04:00 PM VA-TOBACCO FORMER USER [facility] October 19, 2022 04:00 PM VA-TOBACCO QUIT 15 YRS OR MORE [facility] September 22, 2021 04:00 PM VA-TOBACCO FORMER USER [facility] September 22, 2021 04:00 PM VA-TOBACCO QUIT 15 YRS OR MORE [facility] October 03, 2020 09:00 AM VA-TOBACCO NEVER USED [facility] October 02, 2020 04:00 PM VA-TOBACCO FORMER USER [facility] October 02, 2020 04:00 PM VA-TOBACCO QUIT 5 TO < 15 YRS [facility] Feb 22, 2019 09:53 AM V[facility] TOBACCO USE SCREEN [facility] Feb 22, 2019 09:53 AM VA-TOBACCO FORMER USER [facility] Feb 22, 2019 09:53 AM VA-TOBACCO QUIT 5 TO < 15 YRS [facility] Apr 11, 2018 02:23 PM V[facility] TOBACCO USE SCREEN [facility] Apr 11, 2018 02:23 PM VA-TOBACCO FORMER USER [facility] Apr 11, 2018 02:23 PM VA-TOBACCO QUIT 5 TO < 15 YRS [facility] Dec 20, 2016 12:24 PM V[facility] TOBACCO CESSATION >7 YEARS [facility] Dec 20, 2016 12:24 PM V[facility] TOBACCO USE SCREEN [facility] Pathology Reports: +/- 30 days of the encounter Pathology Reports For cases when an order for pathology services may have been completed prior to the date of the Encounter, the report list includes the Pathology Reports that were completed up to 30 days before dateof the Encounter. For cases when an order for pathology services may have been completed after the date of the Encounter, the report list also includes the Pathology Reports that were completed up to30 days after date of the Encounter. The data comes from all [place] treatment facilities. Date/Time Pathology Report Provider Source Nov 14, 2023 08:35 AM LR MICROBIOLOGY RE PORT: Accession [UID]: [facility] [id number] [[id number]] Received: Nov 14, 2023@08:35 Collection sample: URINE CLEAN CATCH Collection date: Nov 14, 2023 08:35 Provider: MARLO POWELL Comment on specimen: na Test(s) ordered: CULTURE, URINE................ completed: Nov 16, 2023 10:24 * BACTERIOLOGY FINAL REPORT => Nov 16, 2023 10:25 TECH CODE: [id number] Bacteriology Remark(s): Preliminary Report: >25,000 - <50,000 CFU/ML MIXED GRAM POS DANNI, PROBABLE CONTAMINANTS. Final Report: >50,000 - <75,000 CFU/ML MIXED GRAM POS DANNI, PROBABLE CONTAMINANTS. =--=--=--=--=--=--=--=--=--=--=- -=--=--=--=--=--=--=--=--=--=--= --=--=--=--=-- Performing Laboratory: Bacteriology Report Performed By: [facility] [CLIA# [id number]] [address] [place] [address] VAHE WOMACK [facility] October 20, 2023 08:28 AM LR MICROBIOLOGY RE PORT: Accession [UID]: [facility] [id number] [[id number]] Received: October 20, 2023@08:28 Collection sample: URINE CLEAN CATCH Collection date: October 20, 2023 08:28 Provider: MARLO POWELL Test(s) ordered: CULTURE, URINE................ completed: Oct 22, 2023 08:14 * BACTERIOLOGY FINAL REPORT => Oct 22, 2023 08:14 TECH CODE: [id number] Bacteriology Remark(s): Preliminary Report: >10,000 - <25,000 CFU/ML MIXED GRAM POS DANNI, PROBABLE CONTAMINANTS. Final Report: >10,000 - <25,000 CFU/ML MIXED GRAM POS DANNI, PROBABLE CONTAMINANTS. =--=--=--=--=--=--=--=--=--=--=- -=--=--=--=--=--=--=--=--=--=--= --=--=--=--=-- Performing Laboratory: Bacteriology Report Performed By: [facility] [CLIA# [id number]] [address] [address] CASSIE CRENSHAW [facility] Encounter Notes: All associated encounter notes This section contains the clinical notes associated to the Encounter. Date/Time Encounter Note(s) Provider Source October 20, 2023 10:07 AM EDUCATION NOTE: LOCAL TITLE: AFTER VISIT SUMMARY NOTE STANDARD TITLE: EDUCATION NOTE DICT DATE: OCTOBER 20, 2023@10:07:26 ENTRY DATE: OCTOBER 20, 2023@10:07:26 DICTATED BY: MARLO POWELL COSIGNER: URGENCY: STATUS: COMPLETED The patient was provided with a copy of an after-visit summary at the conclusion of the visit. The after-visit summary includes information pertaining to the patient's encounter, including diagnoses, vital signs, medications, and new orders, as well as a list of any any upcoming appointments and information regarding the patient's ongoing care. The patient's medications were reviewed with the patient by the provider and were provided to the patient as an updated list of medications. The patient was instructed to inform the provider of any medication changes or discrepancies that were noted. Otherwise, the patient was instructed to continue the medications as prescribed. A copy of the after-visit summary provided to the patient is available in [employer]. SCANNED DOCUMENT SIGNATURE NOT REQUIRED Electronically Filed: 10/20/2023 by: MARLO VELAZQUEZ [facility] October 20, 2023 09:[address] NOTE: LOCAL TITLE: PRIMARY CARE/PROVIDER STANDARD TITLE: PRIMARY CARE PHYSICIAN NOTE DATE OF NOTE: OCTOBER 20, 2023@09:11 ENTRY DATE: OCTOBER 20, 2023@09:11:03 AUTHOR: MARLO POWELL COSIGNER: URGENCY: STATUS: COMPLETED Chief Complaint: Annual visit This is a 83 year old WHITE MALE here for the above. Patient has the following medical problems per the active problem list. Active Problems Benign localized hyperplasia of pro Hypertension Hyperlipidemia History of cerebrovascular accident History of tobacco use Osteoarthritis History of surgery Nurse's intake notes and pre-assessment note reviewed. Non VA Providers: none History of Present Illness: He was having trouble swallowing. He has speech therapy once a week for four to five weeks. He continues to do the exercises they taught him. The exercises did seem to help the swallowing difficulty. He has had diarrhea, really bad about once a month. He has had it off and on for 10 years. He uses something like [employer] General pepto bismol to help with the diarrhea. Other times he has to strain to go. This has been going on for the past six months. He has pain in his right calf. It can occur when he is sitting or walking but mainly sitting. ALLERGIES: Patient has answered NKA Active Outpatient Medications (including Supplies): Active Outpatient Medications Status ======= 1) CARBOXYMETHYLCELLULOSE NA 0.5% OPH SOLN INSTILL 1 ACTIVE DROP IN EACH EYE FOUR TIMES DAILY 2) CHOLECALCIF 25MCG (D3-1,000UNIT) TAB TAKE THREE ACTIVE TABLETS BY MOUTH ONCE DAILY 3) CLOPIDOGREL BISULFATE 75MG TAB TAKE ONE TABLET BY ACTIVE MOUTH ONCE DAILY TO THIN BLOOD 4) CYANOCOBALAMIN 500MCG TAB TAKE TWO TABLETS BY MOUTH ACTIVE ONCE DAILY WITH FOOD 5) FINASTERIDE 5MG TAB *HD* TAKE ONE TABLET BY MOUTH ACTIVE ONCE DAILY FOR THE PROSTATE 6) FOLIC ACID 1MG TAB TAKE ONE TABLET BY MOUTH ONCE ACTIVE DAILY FOR FOLATE DEFICIENCY WITH FOOD 7) LISINOPRIL 10MG TAB TAKE ONE TABLET BY MOUTH EVERY ACTIVE MORNING FOR BLOOD PRESSURE 8) MULTIVITS W/MINERALS TAB/CAP (NO VIT K) TAKE 1 TABLET ACTIVE BY MOUTH ONCE DAILY 9) SIMVASTATIN 40MG TAB TAKE ONE-HALF TABLET BY MOUTH AT ACTIVE BEDTIME FOR CHOLESTEROL - DO NOT TAKE WITH GRAPEFRUIT JUICE 10) TAMSULOSIN HCL 0.4MG CAP TAKE ONE CAPSULE BY MOUTH ACTIVE ONCE DAILY 30 MINUTES AFTER A MEAL FOR PROSTATE (MAY CAUSE LIGHTHEADEDNESS WHEN STANDING) Active Non-VA Medications Status ======= 1) Non-VA ASPIRIN 81MG EC TAB 81MG MOUTH ONCE DAILY ACTIVE 11 Total Medications See Medication Reconciliation note of same date. VITALS: Temp: 97.7 F [36.5 C] (10/20/2023 08:40) BP: 135/75 (10/20/2023 08:40) Pulse: 69 (10/20/2023 08:40) RRate: 16 (10/20/2023 08:40) Weight: 195.8 lb [88.81 kg] (10/20/2023 08:40) Height: 67 in [170.2 cm] (10/20/2023 08:40) Pain: 7 (10/20/2023 08:44) PHYSICAL EXAM: HEAD: Atraumatic, normocephalic NECK: Supple, negative lymphadenopathy, no thyromegaly, good range of motion PULM: Clear to auscultation bilaterally. No crackles, wheezes or rhonci bilaterally. CARDIO: Regular rate and rhythm, no murmur, gallop or rub. LOWER EXTREMITIES: No edema Feet. No edema. No palpable posterior tibilias or dorsalis pedis bilaterally. Not able to palpate popliteal pulse bilaterally. RECENT LAB RESULTS: LAB (CHEM/HEM) Last 2 Days: Collection DT Specimen Test Name Result Units Ref Range 10/20/2023 08:08 URINE !! UA PH 7.50 PH 5 - 9 !! UA PROTEIN NEG QUAL Ref: NEG !! UA GLUCOSE NEG QUAL NEG - TRACE !! UA KETONES NEG QUAL NEG - TRACE !! UA BILI NEG QUAL Ref: NEG !! UA BLOOD NEG QUAL NEG - TRACE !! UA NITRITE 1+ QUAL. Neg. - Neg !! UA UROBILINOGEN <2.0 mg/dL Ref: Normal: <2 mg/dL !! UA SPEC GRAV 1.009 1.005 - 1.035 !! UA COLOR STRAW COLORLESS - YELLOW !! UA APPEARANCE CLEAR Ref: CLEAR !! UA WBC 16-20 H /HPF 0 - 5 !! UA RBC NONE PRESENT /HPF 0 - 2 !! UA BACTERIA MANY /HPF 0 - FEW !! UA LEUK EST 500 H John/uL NEG - 74 10/20/2023 08:08 PLASMA GLUCOSE (FV) 109 mg/dL 70 - 110 UREA NITROGEN (FV 15 mg/dL 6 - 20 CREATININE (FV) 1.23 mg/dL .61 - 1.24 eGFR(new) 58 L See Eval Ref: >=90 SODIUM (FV) 134 L mmol/L 136 - 145 POTASSIUM (FV) 4.4 mmol/L 3.5 - 5.1 CHLORIDE (FV) 101 mmol/L 98 - 107 CO2 (FV) 25 mmol/l 21 - 32 CALCIUM (FV) 9.3 mg/dL 8.9 - 10.3 TOTAL PROTEIN (FV 7.9 g/dL 6.1 - 7.9 ALBUMIN (FV) 3.8 g/dL 3.4 - 5.0 AST (FV) 20 U/L 15 - 37 ALT (FV) 14 U/L 0 - 63 ALK. PHOS. (FV) 43 U/L 32 - 126 T.BILfv 0.76 mg/dL 0.3 - 1.2 CHOL-fv 167 mg/dL 118 - 200 TRIGLYCERIDE (FV) 108 mg/dL Ref: <= 200 HDL(FV) 52 mg/dL Ref: >=40 LDLc 93 mg/dL Ref: Optimal <100 10/20/2023 08:08 BLOOD WBC (FV) 8.7 K/cmm 3.8 - 10.6 RBC (FV) 4.73 M/cmm 4.4 - 5.9 HGB (FV) 13.9 g/dL 13 - 18 HCT (FV) 40.3 % 40 - 52 MCV (FV) 85.2 fL 80 - 100 MCH (FV) 29.3 pg 26 - 34 MCHC (FV) 34.4 g/dL 32 - 36 RDW (FV) 12.9 % 11.5 - 14.5 PLT (FV) 306 K/cmm 150 - 440 NE% (FV) 51.1 % Ref: SEE ABSOLUTE # LY% (FV) 34.7 % Ref: SEE ABSOLUTE # MO% (FV) 10.7 % Ref: SEE ABSOLUTE # EO% (FV) 2.3 % Ref: SEE ABSOLUTE # BA% (FV) 1.2 % Ref: SEE ABSOLUTE # NE# (FV) 4.4 K/cmm 2.4 - 7.6 LY# (FV) 3.0 K/cmm 1.0 - 4.8 MO# (FV) 0.9 K/cmm 0.1 - 1.0 EO# (FV) 0.2 K/cmm 0.0 - 0.4 BA# (FV) 0.1 K/cmm 0.0 - 0.2 !! Indicates COMMENTS AVAILABLE...Refer to Interim Lab Report. ASSESSMENT/PLAN: 1. Diarrhea/Constipation. Education provided. He does not drink much water. He drinks milk and diet pepsi. He does agree that he can add more water to his diet. Will also add senna tabs and see if this helps to regulate the stool. 2. Pain in right calf. He believes it is a muscle cramp. See exam. Needs JOANNE bilaterally. 3. Urinalysis had bacteria, leuk esterace and WBC. Sent for culture. He has to urinate every 10-15 minutes. 4. Decreased eGFR. Has worsened since last year. Education provided. Needs to increase daily water consumption/gatorade/powerade. 5. BPH with frequency. See #3. Continue tamsulosin 0.4mg and finasteride 5m. He is not sure if he follows with a urologist. 6. Hyperlipidemia. Will continue with simvastatin 20mg daily. 7. History of stroke. On clopidgrel and low dose asprin. 8. Long toenails. Not diabetic. [facility] He will inquire about toe nail cutting. Will give him written information. RTC: Late September 2024 for a F2F visit with labs same day, CBC, a1c, renal/liver/lipid panel and UA. PATIENT EDUCATION: ()Diet and Exercise ()Medications including instructions, benefits and side effects (x)Lab results (x)Other: /kraig/ MARLO HO PRIMARY CARE PHYSICIAN Signed: 10/20/2023 09:54 [facility] October 20, 2023 09:09 AM MEDICATION MGT NOT E: LOCAL TITLE: MEDICATION RECONCILIATION (PROVIDER) STANDARD TITLE: MEDICATION MGT NOTE DATE OF NOTE: OCTOBER 20, 2023@09:09 ENTRY DATE: OCTOBER 20, 2023@09:10:03 AUTHOR: MARLO POWELL COSIGNER: URGENCY: STATUS: COMPLETED Medication Reconciliation COMPLETED (Outpatient): The following medication additions, deletions, dosage changes, OR duplications were identified and discussed with patient/caregiver. Specify: see note This Medication Reconciliation note and Patient Medication Information Cover Sheet were reviewed with the patient and/or caregiver and all questions answered. A copy of this note was given to or mailed to patient and/or caregiver at the end of this visit. Remote and Local Allergies: FACILITY ALLERGY/ADR -------- No Remote Allergy/ADR Data available for this patient [facility] No Known Allergies A list of active and pending outpatient prescriptions dispensed from this local [facility] and dispensed remotely from another [facility] or [facility] facility as well as local, pending and active inpatient orders, local clinic medications, locally documented non-VA medications, and local prescriptions that have or been discontinued in the past 90 days has been generated below. If the list for review does not include a component, then it was not applicable to this patient. Active Inpatient, Outpatient and Clinic Medications (including Supplies): Active Outpatient Medications Status ======= 1) CARBOXYMETHYLCELLULOSE NA 0.5% OPH SOLN INSTILL 1 ACTIVE DROP IN EACH EYE FOUR TIMES DAILY 2) CHOLECALCIF 25MCG (D3-1,000UNIT) TAB TAKE THREE ACTIVE TABLETS BY MOUTH ONCE DAILY 3) CLOPIDOGREL BISULFATE 75MG TAB TAKE ONE TABLET BY ACTIVE MOUTH ONCE DAILY TO THIN BLOOD 4) CYANOCOBALAMIN 500MCG TAB TAKE TWO TABLETS BY MOUTH ACTIVE ONCE DAILY WITH FOOD 5) FINASTERIDE 5MG TAB *HD* TAKE ONE TABLET BY MOUTH ACTIVE ONCE DAILY FOR THE PROSTATE 6) FOLIC ACID 1MG TAB TAKE ONE TABLET BY MOUTH ONCE ACTIVE DAILY FOR FOLATE DEFICIENCY WITH FOOD 7) LISINOPRIL 10MG TAB TAKE ONE TABLET BY MOUTH EVERY ACTIVE MORNING FOR BLOOD PRESSURE 8) MULTIVITS W/MINERALS TAB/CAP (NO VIT K) TAKE 1 TABLET ACTIVE BY MOUTH ONCE DAILY 9) SIMVASTATIN 40MG TAB TAKE ONE-HALF TABLET BY MOUTH AT ACTIVE BEDTIME FOR CHOLESTEROL - DO NOT TAKE WITH GRAPEFRUIT JUICE 10) TAMSULOSIN HCL 0.4MG CAP TAKE ONE CAPSULE BY MOUTH ACTIVE ONCE DAILY 30 MINUTES AFTER A MEAL FOR PROSTATE (MAY CAUSE LIGHTHEADEDNESS WHEN STANDING) Active Non-VA Medications Status ======= 1) Non-VA ASPIRIN 81MG EC TAB 81MG MOUTH ONCE DAILY ACTIVE 11 Total Medications No Active Remote Medications for this patient /es/ MARLO HO PRIMARY CARE PHYSICIAN Signed: 10/20/2023 09:10 [facility] October 20, 2023 08:48 AM PRIMARY CARE NOTE: LOCAL TITLE: HIGH RISK FOOT EXAM STANDARD TITLE: PRIMARY CARE NOTE DATE OF NOTE: OCTOBER 20, 2023@08:48 ENTRY DATE: OCTOBER 20, 2023@08:48:38 AUTHOR: IRAIS MEDINA EXP COSIGNER: MARLO POWELL URGENCY: STATUS: COMPLETED A complete foot check was completed at this encounter. VISUAL INSPECTION: Includes inspection for skin breaks, deformity, erythema, trauma, pallor on elevation, dependent rubor, nail deformities, extensive callus and pitting edema. Visual exam results: Abnormal Observations: Thickened toenails, Toe nails are long and thick PEDAL PULSES: Includes palpation of dorsalis and posterior tibial pulses and signs/symptoms of vascular compromise like pain, pallor, parasthesia or paralysis. Present (even if diminished) SENSORY CHECK: Includes 10 gram Monofilament (Appling-Tuan) test of sensation. Intact (Greater than or equal to 80% of sites checked) Abnormal (Less than 80% of sites checked): Intact LOW-RISK LOW RISK FOOT EDUCATION: 1. Advised patient not to walk barefoot. Instructed the patient to pay close attention to the style and fit of shoes. 2. Explained the importance of daily foot checks. Explained that loss of sensation leads to callouses. Callouses break down, which result in ulcers that may lead to gangrene and amputation. 3. Stressed the importance of daily foot hygiene. Warm (not hot) bathing of the feet, complete drying and thorough inspection for changes in the condition of the skin constitute daily foot care. Demonstrated how to do a thorough foot check. 4. Emphasized the use of clean, non-restrictive socks/stockings and well fitting shoes. 5. Stressed the importance of immediate follow-up of any foot injuries or ulcers. Explained that he/she should be non-weight bearing whenever there are lesions on the foot, to prevent cellular damage. Level of Understanding: Good /kraig/ IRAIS MEDINA LPN PRIMARY CARE LICENSED PRACTICAL NURSE-VIC Signed: 10/20/2023 08:54 /es/ MARLO HO PRIMARY CARE PHYSICIAN Cosigned: 10/20/2023 09:09 IRAIS MEDINA [facility] October 20, 2023 08:41 AM PRIMARY CARE NURSI ERIN NOTE: LOCAL TITLE: PRIMARY CARE/NURSE STANDARD TITLE: PRIMARY CARE NURSING NOTE DATE OF NOTE: OCTOBER 20, 2023@08:41 ENTRY DATE: OCTOBER 20, 2023@08:41:27 AUTHOR: IRAIS MEDINA EXP COSIGNER: URGENCY: STATUS: COMPLETED BP: 135/75 (10/20/2023 08:40) Pain: 7 (10/20/2023 08:40) Height: 67 in [170.2 cm] (10/20/2023 08:40) Weight: 195.8 lb [88.81 kg] (10/20/2023 08:40) Pulse: 69 (10/20/2023 08:40) Respiration: 16 (10/20/2023 08:40) Temperature: 97.7 F [36.5 C] (10/20/2023 08:40) BMI: OCTOBER 20, 2023@08:40:42 30.7 10/20/23 @ 0840 PULSE OXIMETRY: 94 SUBJECTIVE: Established here for 12 month RTC with labs. How is your stress level today? Minimal Stress - No follow up needed. Example: Life is good, I have no stress. Depression: No Suicidal: No Accompanied By: Alone On Arrival: Cane Mobility changes in the past 3 months? No Mental Status: Alert and oriented Do you have or use an assistive device? No Has patient had fall(s) in last 3 months? No, patient reports no fall(s) in last 3 months. Potential risks for falls identified. No Has the patient traveled outside the [place] within the past 30 days? No If yes, where has the patient traveled? Psychosocial Status: Cooperative Indication of suspected abuse, neglect, or exploitation? No LAB TESTS SELECTED Collection DT Specimen Test Name Result Units Ref Range 10/20/2022 09:29 PLASMA LDLc 88 mg/dL Ref: Optimal <100 LAB CUMULATIVE SELECTED 1 No selection items chosen for this component. Other Medications (herbals, OTCs, infusions, oral medications, topicals, etc): No Active Outpatient Medications (including Supplies): Active Outpatient Medications Status ======= 1) CARBOXYMETHYLCELLULOSE NA 0.5% OPH SOLN INSTILL 1 ACTIVE DROP IN EACH EYE FOUR TIMES DAILY 2) CHOLECALCIF 25MCG (D3-1,000UNIT) TAB TAKE THREE ACTIVE TABLETS BY MOUTH ONCE DAILY 3) CLOPIDOGREL BISULFATE 75MG TAB TAKE ONE TABLET BY ACTIVE MOUTH ONCE DAILY TO THIN BLOOD 4) CYANOCOBALAMIN 500MCG TAB TAKE TWO TABLETS BY MOUTH ACTIVE ONCE DAILY WITH FOOD 5) FINASTERIDE 5MG TAB *HD* TAKE ONE TABLET BY MOUTH ACTIVE ONCE DAILY FOR THE PROSTATE 6) FOLIC ACID 1MG TAB TAKE ONE TABLET BY MOUTH ONCE ACTIVE DAILY FOR FOLATE DEFICIENCY WITH FOOD 7) LISINOPRIL 10MG TAB TAKE ONE TABLET BY MOUTH EVERY ACTIVE MORNING FOR BLOOD PRESSURE 8) MULTIVITS W/MINERALS TAB/CAP (NO VIT K) TAKE 1 TABLET ACTIVE BY MOUTH ONCE DAILY 9) SIMVASTATIN 40MG TAB TAKE ONE-HALF TABLET BY MOUTH AT ACTIVE BEDTIME FOR CHOLESTEROL - DO NOT TAKE WITH GRAPEFRUIT JUICE 10) TAMSULOSIN HCL 0.4MG CAP TAKE ONE CAPSULE BY MOUTH ACTIVE ONCE DAILY 30 MINUTES AFTER A MEAL FOR PROSTATE (MAY CAUSE LIGHTHEADEDNESS WHEN STANDING) Active Non-VA Medications Status ======= 1) Non-VA ASPIRIN 81MG EC TAB 81MG MOUTH ONCE DAILY ACTIVE 11 Total Medications Alcohol Use Screen (AUDIT-C): Alcohol Screen: SCREEN FOR ALCOHOL (AUDIT-C) An [...] required due to responses to other questions. Lipid Screening (Nurse): Order for Lipid Profile placed. Pain Evaluation (Nurse): PAIN EVALUATION: Clinic Location: Primary Care Patient reports having pain today. Patient reports Primary Care Provider is aware of pain. Pain Screening Tool utilized: DoD/VA Pain Scale This pain has been present for: Greater than 1 year Pain description: Comment: Joints Patient wants pain addressed. Education Topics for patient/family/significant other: Reporting increased/unrelieved pain. Level of Understanding: Good Depression Screening: Perform PHQ-2 A PHQ-2 screen was performed. The score was 0 which is a negative screen for depression. Over the past two weeks, how often have you been bothered by the following problems? 1. Little interest or pleasure in doing things Not at all 2. Feeling down, depressed, or hopeless Not at all /kraig/ IRAIS MEDINA LPN PRIMARY CARE LICENSED PRACTICAL NURSE-VIC Signed: 10/20/2023 08:47 IRAIS MEDINA [facility]
--- OUTSIDE RECORDS SUMMARY | 2024-06-23 02:43 | XMS_ITS | Encounter Summary ---
Author Name [facility] [place] Address [address] [place] [address] Care Team Providers Care Automotive Customer Experience Advisor Name Role Phone NANDA SCHNEIDER Primary Care [...] PART A Dec 21, 2002 PART A [id number] [facility] JAK LUNA PATIENT MEDICARE (WNR) MEDICARE (M) PART A Dec 21, 2002 PART A [id number] [facility] JAK LUNA PATIENT Selected Encounter This section includes the information on record at [place] for the Encounter. Date/Time Encounter Type Encounter Description Reason Provider Source Jun 04, 2024 09:20 AM TARGETED CASE MANAGEMENT ADMIN PAT ACTIVTIES (MASNONCT) MARICHUY SANDOVAL Encounter Template Text not used by [place] Plan of Treatment: Future Appointments (+ 6 months) and Future Tests (+/- 45 days) The Plan of Treatment section includes future care activities for the patient from all VA treatmentfacilities. This section includes future appointments and future orders which are active, pending or scheduled. Future Appointments This section includes appointments that were scheduled to occur 6 months from the date of the Encounter, up to a maximum of 20 appointments. The data comes from all [facility]. Appointment Date/Time Appointment Type Appointme nt Facility Name Jun 07, 2024 03:00 PM AMBULATORY - MEDICINE [facility] Jun 08, 2024 01:00 PM AMBULATORY - MEDICINE [facility] October 18, 2024 08:00 AM AMBULATORY - NONE [facility] October 18, 2024 09:00 AM AMBULATORY - MEDICINE [facility] Active, Pending, and Scheduled Orders This section includes a listing of several types of active, pending, and scheduled orders, including clinic medications orders, diagnostic test orders, procedure orders and consult orders; where the start date of the order is 45 days before the date of the Encounter or 45 days after the date of theEncounter. The data comes from all [facility]. Test Date/Time Test Type Test Details Facility Name Jun 08, 2024 12:00 AM Laboratory - Chemi stry Order URINALYSIS (STL-PB) URINE - CLEAN CATCH [facility] Jun 08, 2024 12:00 AM Laboratory - Chemi stry Order MICRAL/CREAT PROFILE (STL) URINE YELLOW [facility] Jun 08, 2024 12:00 AM Laboratory - Chemi stry Order B12 GOLD/RED SST SERUM [facility] Lab Results: +/- 30 days of the encounter This section includes the Chemistry and Hematology Lab Results on record with [place] for the patient. Radiology Reports and Pathology Reports are provided separately, in subsequent sections. Lab Results This section contains the Chemistry/Hematology Results that were resulted 30 days before or 30 daysafter the date of the Encounter. Date/Time Source Result Type Result - Unit Interpretation Reference Range Comment Jun 08, 2024 02:10 PM [facility] CBC Specimen Type: BLOOD No comment entered. Ordering Provider: AUBRIE SCHNEIDER Report Released Date/Time: Jun 08, 2024 07:39 AM Reporting Lab: [facility] [address] [facility] [id number] Performing Lab: [facility] [phone] WBC 9.1 10*3/uL 3.6-11.2 RBC 4.54 10*6/uL [...] 10*3/uL 0.00-0.20 Jun 08, 2024 02:10 PM [facility] COMPREHENSIVE METABOLIC PANEL Specimen Type: PLASMA Comment: No hemolysis noted. Ordering Provider: AUBRIE SCHNEIDER Report Released Date/Time: Jun 08, 2024 07:39 AM Reporting Lab: [facility] [facility] [phone] Performing Lab: [facility] [address] [facility] [phone] CREATININE 0.91 mg/dL 0.70-1.30 UREA NITROGEN 16.5 [...] 82.08 >60 Jun 08, 2024 02:10 PM [facility] TSH ([place]-PB) Specimen Type: SERUM No comment entered. Ordering Provider: ASHLEY SCHNEIDER NAE Report Released Date/Time: Jun 08, 2024 07:39 AM Reporting Lab: [facility] [address] [place] [address] Performing Lab: [facility] [address] [place] [address] TSH 3.557 u[IU]/mL 0.470-5.000 Jun 08, 2024 02:10 PM [facility] B12 Specimen Type: SERUM No comment entered. Ordering Provider: ASHLEY SCHNEIDER NAE Report Released Date/Time: Jun 08, 2024 07:39 AM Reporting Lab: [facility] [address] [place] [address] Performing Lab: [facility] [address] [place] [address] B12 1214 pg/mL H 213-816 Jun 08, 2024 02:10 PM [facility] LIPID PANEL (STL) Specimen Type: PLASMA Comment: No hemolysis noted. Ordering Provider: ASHLEY SCHNEIDER NAE Report Released Date/Time: Jun 08, 2024 07:39 AM Reporting Lab: [facility] [facility] [address] Performing Lab: [facility] [address] [facility] [phone] CHOLESTEROL 192 mg/dL 0-200 TRIGLYCERIDE 104 mg/dL 0-150 CALCULATED LDL 115 mg/dL See Interp HDL(New) 56 mg/dL > 40 Jun 08, 2024 02:10 PM [facility] HGA1C Specimen Type: BLOOD No comment entered. Ordering Provider: ASHELY SCHNEIDER NAE Report Released Date/Time: Jun 08, 2024 07:39 AM Reporting Lab: [facility] [facility] [address] Performing Lab: [facility] [address] [facility] [address] HGA1C 6.2 H 4.0-6.0 Jun 08, 2024 02:10 PM [facility] VITAMIN D, 25-HYDROXY Specimen Type: SERUM No comment entered. Ordering Provider: ASHLEY SCHNEIDER NAE Report Released Date/Time: Jun 08, 2024 07:39 AM Reporting Lab: [facility] [facility] [address] Performing Lab: [facility] [address] [facility] [address] VITAMIN D, 25-HYDROXY 43.7 ng/mL 30-96 Jun 08, 2024 02:10 PM [facility] FOLATE (STL-[place]) Specimen Type: SERUM No comment entered. Ordering Provider: ASHLEY SCHNEIDER NAE Report Released Date/Time: Jun 08, 2024 01:32 PM Reporting Lab: [facility] [facility] [address] Performing Lab: [facility] [facility] [address] FOLATE (STL-[place]) 38.6 ng/mL H 7-20 Encounter Notes: All associated encounter notes This section contains the clinical notes associated to the Encounter. Date/Time Encounter Note(s) Provider Source Jun 04, 2024 09:20 AM PRIMARY CARE NOTE: LOCAL TITLE: [facility] TRAVELING PCMM NOTE [facility] STANDARD TITLE: PRIMARY CARE NOTE DATE OF NOTE: JUN 04, 2024@09:20 ENTRY DATE: JUN 04, 2024@09:20:24 AUTHOR: MARICHUY SANDOVAL EXP COSIGNER: URGENCY: STATUS: COMPLETED Traveling/Relocating Care Coordination Patient-Centered Management Module (PCMM) New patient PCMM received and approved for permanent relocation of care to: [facility] Per chart review will establish care with a PCP on: 06/08/24 BREANNE-Pact Please note the alternate VA is responsible for care until care is established at the receiving [facility]. /kraig/ MARICHUY SANDOVAL REGISTERED NURSE, HOME TELEHEALTH COORDINATOR Signed: 06/04/2024 09:20 MARICHUY SANDOVAL [facility]
--- OUTSIDE RECORDS SUMMARY | 2024-06-23 02:43 | XMS_ITS | Encounter Summary ---
Author Name [facility] [place] [facility] [place] [facility] [place] Address [address] [place] [address] Care Team Providers Care Paint Prep Technician Name Role Phone JENNIE NANDA Primary Care Provider MARLO Fernandez Primary Care [...] PART A Dec 21, 2002 PART A [id number] [facility] [phone] JAK LUNA PATIENT MEDICARE (WNR) MEDICARE (M) PART A Dec 21, 2002 PART A [id number] JAK LUNA PATIENT Selected Encounter This section includes the information on record at [place] for the Encounter. Date/Time Encounter Type Encounter Description Reason Provider Source Feb 16, 2024 02:00 PM POSTOP FOLLOW-UP VISIT OPTOMETRY ICD-10-CM Z48.810 Encntr for surgical aftcr fol surgery on the sense organs LAVELL BURGOS IHRachael Encounter Template Text not used by [facility] Assessments - Encounter Diagnoses This section includes the primary and secondary diagnoses documented for the Encounter. Date/Time Primary/Secondary Diagnosis Diagnosis Name Provider Source Feb 16, 2024 02:35 PM PRIMARY Encntr for surgical aftcr fol surgery on the sense organs LAVELL BURGOS [facility] Feb 16, 2024 02:35 PM SECONDARY Presbyopia LAVELL BURGOS [facility] Feb 16, 2024 02:35 PM SECONDARY Senile entropion of right lower eyelid LAVELL BURGOS [facility] Feb 16, 2024 02:35 PM SECONDARY Strabismic amblyopia, left eye LAVELL BURGOS [facility] Plan of Treatment: Future Appointments (+ 6 months) and Future Tests (+/- 45 days) The Plan of Treatment section includes future care activities for the patient [facility] [place] [facility] This section includes future appointments and future orders which are active, pending or scheduled. Future Appointments This section includes appointments that were scheduled to occur 6 months from the date of the Encounter, up to a maximum of 20 appointments. The data comes from all [place] treatment facilities. Appointment Date/Time Appointment Type Appointme nt Facility Name Jun 07, 2024 03:00 PM AMBULATORY - MEDICINE [facility] Jun 08, 2024 01:00 PM [facility] MEDICINE [facility] Social History: Smoking Status (Most current) and Tobacco Use (All prior to encounter date) This section includes the most current, and the historical, smoking and tobacco- related health factors from the [place] facility where the Encounter took place. Current Smoking Status This section includes the most current smoking, or tobacco-related health factor, from the [place] facility where the Encounter took place. Date/Time Current Smoking Status Comment Facil ity October 19, 2023 03:00 PM VA-TOBACCO FORMER USER [facility] Tobacco Use History This section includes a history of the smoking, or tobacco-related health factors, that were collected on or before the date of the Encounter. The data comes from the [place] facility where the Encounter took place. Date/Time Smoking Status/Tobacco Use Comment F acility October 19, 2023 03:00 PM VA-TOBACCO QUIT 5 TO < 15 YRS [facility] October 19, 2022 04:00 PM VA-TOBACCO FORMER USER [facility] October 19, 2022 04:00 PM VA-TOBACCO QUIT 15 YRS OR MORE [facility] September 22, 2021 04:00 PM VA-TOBACCO FORMER USER [facility] September 22, 2021 04:00 PM VA-TOBACCO QUIT [...] 12:24 PM V16 TOBACCO USE SCREEN [facility] Encounter Notes: All associated encounter notes This section contains the clinical notes associated to the Encounter. Date/Time Encounter Note(s) Provider Source Feb 16, 2024 02:51 PM ORTHOTICS PROSTHET ICS OUTPATIENT NOTE: LOCAL TITLE: EYEGLASS PRESCRIPTION STANDARD TITLE: ORTHOTICS PROSTHETICS OUTPATIENT NOTE DATE OF NOTE: FEB 16, 2024@14:51 ENTRY DATE: FEB 16, 2024@14:51:47 AUTHOR: OSCAR WISEMAN EXP COSIGNER: URGENCY: STATUS: COMPLETED EYEGLASSES FITTING: mail to patient [address] [place] [id number] PRESCRIPTION: Indication: regular wear Right eye -0.75+0.59k604 Left eye plano Add +2.75 AUTHORIZED LENSES: Lens Style: ft-35 Lens Material: cr39 Lens Other: none FRAME: Tereso Murillo MEASUREMENTS: PD: 67/64 SEG HEIGHT: 14 /kraig/ Vic Deutsch CB Signed: 02/16/2024 14:53 OSCAR WISEMAN CB Feb 16, 2024 02:01 PM EYE NURSING NOTE: LOCAL TITLE: EYE CLINIC/NURSE INTAKE STANDARD TITLE: EYE NURSING NOTE DATE OF NOTE: FEB 16, 2024@14:01 ENTRY DATE: FEB 16, 2024@14:01:22 AUTHOR: HOBBS,RADHA EXP COSIGNER: URGENCY: STATUS: COMPLETED Patient Age: 84 Last Eye Exam: 2023 Eligibility: PRIMARY ELIGIBILTY CODE - NSC Rated disabilities: - NONE FOUND Clinical Quality Analyst today: No Has the patient traveled outside the [place] within the past 30 days? No If yes, where has the patient traveled? Family Ocular History: Glaucoma: No. Macular Degeneration: No. Blindness: No. Patient Medical History: Tobacco: no Mental Status: Alert and oriented Allergies: Patient has answered NKA Diabetes Mellitus Yes Hemoglobin A1C 6.6 % H (10/20/2022 09:29) Date of diagnosis: 2017 Diet. Patient Ocular History: Macular degeneration No. Glaucoma: No. Eye injuries: None. Eye Surgery: Cataract Surgery Right eye 2017 Left eye 2019 Eye Meds: Artificial tears Visual Acuity: Right eye: 20/25; With glasses Left eye: 20/400; With glasses, Pinhole: 20/NI Chief Complaint: Established pt. here for f/u on bilateral entropion repair. Pt. states he thought it might help him read better, but he doesn't see much difference. Pt. states he lost a hand held light that we gave him, and he would like another. /kraig/ RADHA HOBBS LPN Licensed Practical Nurse, Vic Signed: 02/16/2024 14:16 RADHA HOBBS [facility] Feb 16, 2024 12:35 PM EYE NOTE: LOCAL TITLE: EYE CLINIC STANDARD TITLE: EYE NOTE DATE OF NOTE: FEB 16, 2024@12:35 ENTRY DATE: FEB 16, 2024@12:35:47 AUTHOR: LAVELL BURGOS EXP COSIGNER: URGENCY: STATUS: COMPLETED Patient Age: 84 Last Eye Exam: 2023 Eligibility: PRIMARY ELIGIBILTY CODE - NSC Rated disabilities: - NONE FOUND Clinical Quality Analyst today: No Has the patient traveled outside the [place] within the past 30 days? No If yes, where has the patient traveled? Family Ocular History: Glaucoma: No. Macular Degeneration: No. Blindness: No. Patient Medical History: Tobacco: no Mental Status: Alert and oriented Allergies: Patient has answered NKA Diabetes Mellitus Yes Hemoglobin A1C 6.6 % H (10/20/2022 09:29) Date of diagnosis: 2017 Diet. Patient Ocular History: Macular degeneration No. Glaucoma: No. Eye injuries: None. Eye Surgery: Cataract Surgery Right eye 2017 Left eye 2019 Eye Meds: Artificial tears Visual Acuity: Right eye: 20/25; With glasses Left eye: 20/400; With glasses, Pinhole: 20/NI Chief Complaint: Established pt. here for f/u on bilateral entropion repair. Pt. states he thought it might help him read better, but he doesn't see much difference. Pt. states he lost a hand held light that we gave him, and he would like another. Nurse's intake/assessment note reviewed/confirmed. Brief Problem List: 1. Benign localized hyperplasia of prostate 2. Hypertension 3. Hyperlipidemia 4. Diabetes mellitus type 2 5. History of cerebrovascular accident 6. History of tobacco use 7. Osteoarthritis Pupils: PERRL without APD right eye/left eye - size: 3mm OU Extraocular muscles: unrestricted right eye, unrestricted left eye Confrontations: full to finger count right eye, full to finger count left eye Binocular testing: vertical deviation (describe below): L hyper/XT Manifest Refraction: 02/16/24 Right eye -0.75+0.98s330 20/25-2 Left eye plano 20/100 Add +2.75 demonstrated 20/30 easily and 20/20 difficult @ ~14 OD Intraocular pressure: @ 0822 Right eye 16 Left eye 17 flat keratosis on right upper eyelid temporally, and along inner left side of bridge of nose. Slit Lamp Exam: Lids/Lashes/Conjunctiva: good lower apposition of lids to globe OU, no entropion, no trichiasis; bilateral upper ptosis/dermatochalasis with MRD ~1mm OU Cornea: clear right eye, clear left eye ; Anterior Chamber: deep/quiet right eye, deep/quiet left eye Iris: no rubeosis right eye, no rubeosis left eye Lens: PC IOL OD w/trace PCO; PC IOL OS clear Additional testinx11mm keratosis along left bridge of nose extending to just below and anterior to medial canthus left eye OCT RNFL 10/07/20: OU normal all sectors, 88% symmetry, avg RNFL 90 and 85 Macular thickness OD: slightly shallow and broad foveal area, and thin just superior to fovea; , workforce advisor 229 OS: shallow fovea but normal contour; fovea not found on oct measurement Internal Exam: dilation warning, right eye, left eye, 0.5% Tropicamide Media: asteroid hyalosis right eye, clear left eye Optic nerve head: Healthy, Right Eye: Cup/Disc: 0.5 Healthy, Left Eye: Cup/Disc: 0.6 Vessels: normal right eye, normal left eye Macula: flat/no abnormal vessels right eye, flat/no abnormal vessels left eye Periphery: no holes, no tears, no hemorrhages right eye, no holes, no tears, no hemorrhages left eye Assessment: 1. pseudophakia both eyes, stable 2. strabismic amblyopia left eye, lifelong poor vision per patient 3. Diabetes type II, diet controlled, last a1c 6.8%; no retinopathy 4. dry eyes, exacerbated by increased scleral and lower corneal exposure due to #5 5. one month s/p lower entropion repair both lower lids, doing well, good apposition 6. presbyopia Plan: 1. monitor 2. monitor; ordered replacement Mobilux 3.5X, his is broken 3. Educate and monitor, discussed diabetic eye disease and importance of good blood pressure and blood glucose control. 4-5. Refresh Tears as often as desired, but AT LEAST QID 6. ordered new glasses Patient and/or surrogate verbalized understanding of the instructions/information given. Return to Clinic: cancel the Apr 30, and rtc one year ///////////////////////////// //// Rx date 02/16/24 FINAL EYEGLASSES PRESCRIPTION: Indication: regular wear Right eye -0.75+0.00l780 Left eye plano Add +2.75 AUTHORIZED LENSES: Lens Style: ft-35 Lens Material: cr39 Lens Other: none ///////////////////////////// //// /es/ LAVELL BURGOS, DWAIN STAFF CHIEF LOCK OPERATOR, Signed: 02/16/2024 14:40 LAVELL BURGOS [facility]
--- OUTSIDE RECORDS SUMMARY | 2024-06-23 02:43 | XMS_ITS | Continuity of Care Document ---
Author Name [facility] Organization [facility] Care Team Providers Care Soap Drier Tender Name Role Phone [facility] Unavailable Unavailable Problems Combined list of problems from Department of Defense and Veterans Affairs facilities. It does not include entries that were removed or entered in error. Problem Status Onset Date Problem Type Date of Resolution Comments Source Benign localized hyperplasia of prostate Active Condition [facility] BPH - benign prostatic hyperplasia Active Condition [facility] Cerebral infarction Active Condition [facility] History of cerebrovascular accident Active Condition [facility] History of surgery Active Condition J 2016 Entered By: SIMONA GRAVES Comment: none [facility] History of tobacco use Active Condition [facility] HLD - Hyperlipidemia Active Condition [facility] HTN - Hypertension Active Condition [facility] Hyperlipidemia Active Condition [facility] Hypertension Active [facility] Osteoarthritis Active Condition [facility] Diabetes mellitus type 2 Inactive Condition 03/26/2021 [facility] Diagnosis: ICD-10-CM E78.5 Hyperlipidemia, unspecified Active Diagnosis [facility] Diagnosis: ICD-10-CM Z71.89 Other specified counseling Active Diagnosis [facility] Diagnosis: ICD-10-CM Y93.E6 Activity, residential relocation Active Diagnosis [facility] Diagnosis: ICD-10-CM Z48.810 Encntr for surgical aftcr fol surgery on the sense organs Active Diagnosis [facility] Diagnosis: ICD-10-CM R68.89 Other general symptoms and signs Active Diagnosis [facility] Diagnosis: ICD-10-CM 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 Medication Details Route Status Patient Instructions Prescription Expires Prescription Number Last Dispense Date Ordering Provider Order Date Order Qty Source ASPIRIN 81MG TAB,EC TAKE ONE TABLET BY MOUTH ONCE A DAY ORAL ACTIVE NANDA SCHNEIDER 2024 [facility] ASPIRIN 81MG TAB,EC TAKE ONE TABLET BY MOUTH ONCE DAILY ORAL ACTIVE Bettina POWELL A 2022 [facility] CARBOXYMETH YLCELLULOSE NA 0.5% SOLN,OPH INSTILL 1 DROP IN EACH EYE FOUR TIMES DAILY OPHTHA LMIC ACTIVE 10/06/2024 [id number] 4 YVES RETANA EN A 2023 15 [facility] CHOLECALCIF ASH 25MCG (1,000UNIT) TAB TAKE ONE TABLET BY MOUTH ONCE A DAY FOR VITAMIN D DEFICIEN CY ORAL ACTIVE 06/09/2025 [id number] 5 JENNIE, NANDA 2024 100 [facility] CHOLECALCIF ASH 25MCG (1,000UNIT) TAB TAKE THREE TABLETS BY MOUTH ONCE DAILY ORAL ACTIVE 10/20/2024 [id number] 4 Bettina POWELL A 2023 300 [facility] CHOLECALCIF ASH 25MCG (1,000UNIT) TAB TAKE THREE TABLETS BY MOUTH ONCE DAILY ORAL DISCONT INUED 11/23/2023 [id number] 4 Bettina POWELL A 2022 300 [facility] CIPROFLOXAC IN HCL 500MG TAB TAKE ONE TABLET BY MOUTH TWICE A DAY - ANTIBIOT IC - TAKE UNTIL GONE *TAKE WITH FOOD AND AVOID TAKING WITH DAIRY OR PRODUCTS CONTAINI NG ALUMINUM , IRON, CALCIUM, OR MAGNESIU M* ORAL 01/04/2024 [id number] 4 Bettina POWELL A 2023 20 [facility] CLOPIDOGREL BISULFATE 75MG TAB TAKE ONE TABLET BY MOUTH ONCE A DAY ORAL ACTIVE 06/09/2025 [id number] 5 MCQUAIDE, NANDA 2024 90 [facility] CLOPIDOGREL BISULFATE 75MG TAB TAKE ONE TABLET BY MOUTH ONCE DAILY ORAL ACTIVE 10/20/2024 [id number] 5 Bettina POWELLNE A 2023 90 [facility] CLOPIDOGREL BISULFATE 75MG TAB TAKE ONE TABLET BY MOUTH ONCE DAILY TO THIN BLOOD ORAL DISCONT INUED 10/21/2023 [id number] 4 Bettina POWELL A 2022 90 [facility] CYANOCOBALA MIN 500MCG TAB TAKE TWO TABLETS BY MOUTH ONCE DAILY WITH FOOD ORAL ACTIVE 10/20/2024 [id number] 4 Bettina POWELL A 2023 200 [facility] CYANOCOBALA MIN 500MCG TAB TAKE ONE TABLET BY MOUTH ONCE A DAY ORAL SUSPEND ED 06/09/2025 [id number] 5 JENNIE NANDA 2024 100 [facility] CYANOCOBALA MIN 500MCG TAB TAKE TWO TABLETS BY MOUTH ONCE DAILY WITH FOOD ORAL DISCONT INUED 11/23/2023 [id number] 4 Bettina POWELL A 2022 200 [facility] FINASTERIDE 5MG TAB TAKE ONE TABLET BY MOUTH ONCE DAILY FOR THE PROSTATE ORAL SUSPEND ED 04/20/2025 [id number] 5 Bettina POWELLNINE A 2023 90 [facility] FINASTERIDE 5MG TAB TAKE ONE TABLET BY MOUTH ONCE A DAY SWALLOW WHOLE, DO NOT CRUSH, SPLIT, OR CHEW. ORAL SUSPEND ED 06/09/2025 [id number] 5 MCQUAIDE, NANDA 2024 90 [facility] FINASTERIDE 5MG TAB TAKE ONE TABLET BY MOUTH ONCE DAILY FOR THE PROSTATE ORAL DISCONT INUED 04/12/2024 [id number] 4 Bettina POWELLNIARELIS A 2022 90 [facility] FOLIC ACID 1MG TAB TAKE ONE TABLET BY MOUTH ONCE DAILY FOR FOLATE DEFICIEN CY WITH FOOD ORAL ACTIVE 09/26/2024 [id number] 5 Bettina PALMA 2023 90 [facility] FOLIC ACID 1MG TAB TAKE ONE TABLET BY MOUTH ONCE A DAY ORAL SUSPEND ED 06/09/2025 [id number] 5 NANDA SCHNEIDER 2024 100 [facility] FOLIC ACID 1MG TAB TAKE ONE TABLET BY MOUTH ONCE DAILY WITH FOOD ORAL DISCONT INUED 11/23/2023 [id number] 4 Bettina POWELL 2022 90 [facility] LISINOPRIL 10MG TAB TAKE ONE TABLET BY MOUTH EVERY MORNING FOR BLOOD PRESSURE ORAL 06/10/2024 [id number] KAMERON LIU 2023 90 [facility] LISINOPRIL 20MG TAB TAKE ONE-HALF TABLET BY MOUTH ONCE A DAY ORAL ACTIVE 06/09/2025 [id number] 5 NANDA SCHNEIDER 2024 45 [facility] MULTIVITAMI NS CAP/TAB TAKE 1 TABLET BY MOUTH ONCE A DAY FOR NUTRITIO N/DIETAR Y SUPPLEME NTATION ORAL ACTIVE 06/09/2025 [id number] 5 NANDA SCHNEIDER 2024 100 [facility] MULTIVITS W/MINERALS TAB/CAP (NO VIT K) TAKE 1 TABLET BY MOUTH ONCE DAILY ORAL ACTIVE 10/20/2024 [id number] 5 Bettina POWELL 2023 100 [facility] MULTIVITS W/MINERALS TAB/CAP (NO VIT K) TAKE 1 TABLET BY MOUTH ONCE DAILY ORAL DISCONT INUED 11/23/2023 [id number] 4 Bettina POWELL 2022 100 [facility] SENNOSIDES 8.6MG TAB TAKE ONE TABLET BY MOUTH ONCE DAILY NEEDED FOR CONSTIPA TION ORAL ACTIVE 10/20/2024 [id number] 4 Bettina POWELL 2023 100 [facility] SIMVASTATIN 40MG TAB TAKE ONE-HALF TABLET BY MOUTH EVERY EVENING ORAL ACTIVE 06/09/2025 [id number] 5 NANDA SCHNEIDER 2024 45 [facility] SIMVASTATIN 40MG TAB TAKE ONE-HALF TABLET BY MOUTH AT BEDTIME FOR CHOLESTE ROL - DO NOT TAKE WITH GRAPEFRU IT JUICE ORAL 05/09/2024 [id number] 4 Bettina POWELL A 2023 45 [facility] TAMSULOSIN HCL 0.4MG CAP TAKE ONE CAPSULE BY MOUTH ONCE DAILY FOR PROSTATE 30 MINUTES AFTER A MEAL (MAY CAUSE LIGHTHEA DEDNESS WHEN STANDING ) ORAL ACTIVE 10/20/2024 [id number] 4 Bettina POWELL A 2023 90 [facility] TAMSULOSIN HCL 0.4MG CAP TAKE ONE CAPSULE BY MOUTH EVERY EVENING APPROXIM ATELY 30 MINUTES AFTER THE SAME MEAL EACH DAY ORAL SUSPEND ED 06/09/2025 [id number] 5 NANDA SCHNEIDER 2024 90 [facility] TAMSULOSIN HCL 0.4MG CAP TAKE ONE CAPSULE BY MOUTH ONCE DAILY 30 MINUTES AFTER A MEAL FOR PROSTATE (MAY CAUSE LIGHTHEA DEDNESS WHEN STANDING ) ORAL DISCONT INUED (EDIT) 06/15/2024 [id number] 4 [facility] 2023 30 [facility] TAMSULOSIN HCL 0.4MG CAP TAKE ONE CAPSULE BY MOUTH ONCE DAILY 30 MINUTES AFTER A MEAL FOR PROSTATE (MAY CAUSE LIGHTHEA DEDNESS WHEN STANDING ) ORAL 06/09/2023 [id number] 3 Bettina POWELL A 2022 30 [facility] Immunizations Combined list of available immunizations from the Department of Defense and Veterans Affairs facilities. Immunization Series Date Given Administered By Site Reaction Lot Number CVX Code Drug General Utility Worker Status Comments Source COVID-19 (MODERNA), MRNA, LNP-S, PF, 100 MCG OR 50 MCG DOSE 3 2020 207 complet ed MOD; [id number]; 2 [facility] INFLUENZA, UNSPECIFIED FORMULATION 2020 88 complet ed [facility] COVID-19 (MODERNA), MRNA, LNP-S, PF, 100 MCG/0.5 ML DOSE 2 2020 207 complet ed MOD; [id number]; 1 [facility] COVID-19 (MODERNA), MRNA, LNP-S, PF, 100 MCG/0.5 ML DOSE 1 2020 207 complet ed MOD; [id number]; 1 [facility] INFLUENZA, HIGH-DOSE, TRIVALENT, PF 1 2013 135 complet ed [facility] Results Combined list of recent chemistry, hematology and other laboratory results from Department of Defense and Veterans Affairs, ranging from 15 months to all on record, depending upon the facility. Order Name Results Value Reference Range Date Interpretation Specimen Comments Source CBC LEUKOCYTES [#/VOLUME] IN BLOOD BY AUTOMATED COUNT 9.1 10*3/uL 3.6 - 11.2 06/08 Specimen Type: BLOOD No comment entered. Ordering Provider: Elicia SCHNEIDER Report Released Date/Time: Jun 08, 2024 07:39 AM Reporting Lab: [facility] [place] [address] Performing Lab: [facility] [id number] [place] [address] DIVISION CBC ERYTHROCYTE S [#/VOLUME] IN BLOOD BY AUTOMATED COUNT 4.54 10*6/uL 4.10 - 5.70 06/08 Specimen Type: BLOOD No comment entered. Ordering Provider: Elicia SCHNEIDER Report Released Date/Time: Jun 08, 2024 07:39 AM Reporting Lab: [facility] [id number] Performing Lab: [facility] [id number] [place] [address] DIVISION CBC HEMOGLOBIN [MASS/VOLUM E] IN BLOOD 13.6 g/dL 13.1 - 16.8 06/08 Specimen Type: BLOOD No comment entered. Ordering Provider: Elicia SCHNEIDER Report Released Date/Time: Jun 08, 2024 07:39 AM Reporting Lab: [facility] [place] [address] Performing Lab: [facility] DIVISION CBC HEMATOCRIT [VOLUME FRACTION] OF BLOOD 39.4 38.2 - 48.4 06/08 Specimen Type: BLOOD No comment entered. Ordering Provider: Elicia SCHNEIDER Report Released Date/Time: Jun 08, 2024 07:39 AM Reporting Lab: [facility] [place] [address] Performing Lab: [facility] DIVISION CBC MCV [ENTITIC VOLUME] BY AUTOMATED COUNT 86.8 fL 80.0 - 100.0 06/08 Specimen Type: BLOOD No comment entered. Ordering Provider: Elicia SCHNEIDER Report Released Date/Time: Jun 08, 2024 07:39 AM Reporting Lab: [facility] [place] [address] Performing Lab: [facility] DIVISION CBC MCH [ENTITIC MASS] BY AUTOMATED COUNT 30.0 pg 27.0 - 34.0 06/08 Specimen Type: BLOOD No comment entered. Ordering Provider: Elicia SCHNEIDER Report Released Date/Time: Jun 08, 2024 07:39 AM Reporting Lab: [facility] [place] [address] Performing Lab: [facility] DIVISION CBC MCHC [MASS/VOLUM E] BY AUTOMATED COUNT 34.5 g/dL 33.0 - 36.0 06/08 Specimen Type: BLOOD No comment entered. Ordering Provider: Elicia SCHNEIDER Report Released Date/Time: Jun 08, 2024 07:39 AM Reporting Lab: [facility] [place] [address] Performing Lab: [facility] DIVISION CBC PLATELETS [#/VOLUME] IN BLOOD BY AUTOMATED COUNT 271 10*3/uL 150 - 400 06/08 Specimen Type: BLOOD No comment entered. Ordering Provider: Elicia SCHNEIDER Report Released Date/Time: Jun 08, 2024 07:39 AM Reporting Lab: [facility] [place] [address] Performing Lab: [facility] CBC PLATELET MEAN VOLUME [ENTITIC VOLUME] IN BLOOD BY AUTOMATED COUNT 9.1 fL 7.5 - 11.2 06/08 Specimen Type: BLOOD No comment entered. Ordering Provider: Elicia SCHNEIDER Report Released Date/Time: Jun 08, 2024 07:39 AM Reporting Lab: [facility] [place] [address] Performing Lab: [facility] DIVISION CBC ERYTHROCYTE DISTRIBUTIO N WIDTH [RATIO] BY AUTOMATED COUNT 11.6 11.8 - 15.1 06/08 L Specimen Type: BLOOD No comment entered. Ordering Provider: Elicia SCHNEIDER Report Released Date/Time: Jun 08, 2024 07:39 AM Reporting Lab: [facility] [place] [address] Performing Lab: [facility] DIVISION CBC LYMPHOCYTES /100 LEUKOCYTES IN BLOOD BY AUTOMATED COUNT 35 06/08 Specimen Type: BLOOD No comment entered. Ordering Provider: Elicia SCHNEIDER Report Released Date/Time: Jun 08, 2024 07:39 AM Reporting Lab: [facility] [place] [address] Performing Lab: [facility] DIVISION CBC MONOCYTES/1 00 LEUKOCYTES IN BLOOD BY AUTOMATED COUNT 9 06/08 Specimen Type: BLOOD No comment entered. Ordering Provider: Elicia SCHNEIDER Report Released Date/Time: Jun 08, 2024 07:39 AM Reporting Lab: [facility] [place] [address] Performing Lab: [facility] DIVISION CBC NEUTROPHILS /100 LEUKOCYTES IN BLOOD BY AUTOMATED COUNT 54 06/08 Specimen Type: BLOOD No comment entered. Ordering Provider: Elicia SCHNEIDER Report Released Date/Time: Jun 08, 2024 07:39 AM Reporting Lab: [facility] [place] [address] Performing Lab: [facility] DIVISION CBC EOSINOPHILS /100 LEUKOCYTES IN BLOOD BY AUTOMATED COUNT 06/08 Specimen Type: BLOOD No comment entered. Ordering Provider: Elicia SCHNEIDER Report Released Date/Time: Jun 08, 2024 07:39 AM Reporting Lab: [facility] [place] [address] Performing Lab: [facility] DIVISION CBC BASOPHILS/1 00 LEUKOCYTES IN BLOOD BY AUTOMATED COUNT 1 06/08 Specimen Type: BLOOD No comment entered. Ordering Provider: Elicia SCHNEIDER Report Released Date/Time: Jun 08, 2024 07:39 AM Reporting Lab: [facility] [place] [address] Performing Lab: [facility] DIVISION CBC LYMPHOCYTES [#/VOLUME] IN BLOOD BY AUTOMATED COUNT 3.15 10*3/uL 0.77 - 4.50 06/08 Specimen Type: BLOOD No comment entered. Ordering Provider: Elicia SCHNEIDER Report Released Date/Time: Jun 08, 2024 07:39 AM Reporting Lab: [facility] [place] [address] Performing Lab: [facility] DIVISION CBC MONOCYTES [#/VOLUME] IN BLOOD BY AUTOMATED COUNT 0.85 10*3/uL 0.19 - 0.80 06/08 H Specimen Type: BLOOD No comment entered. Ordering Provider: Elicia SCHNEIDER Report Released Date/Time: Jun 08, 2024 07:39 AM Reporting Lab: [facility] [place] [address] Performing Lab: [facility] DIVISION CBC NEUTROPHILS [#/VOLUME] IN BLOOD BY AUTOMATED COUNT 4.93 10*3/uL 2.10 - 8.00 06/08 Specimen Type: BLOOD No comment entered. Ordering Provider: Elicia SCHNEIDER Report Released Date/Time: Jun 08, 2024 07:39 AM Reporting Lab: [facility] [place] [address] Performing Lab: [facility] DIVISION CBC EOSINOPHILS [#/VOLUME] IN BLOOD BY AUTOMATED COUNT 0.11 10*3/uL 0.00 - 0.60 06/08 Specimen Type: BLOOD No comment entered. Ordering Provider: Elicia SCHNEIDER Report Released Date/Time: Jun 08, 2024 07:39 AM Reporting Lab: [facility] [place] [address] Performing Lab: [facility] DIVISION CBC BASOPHILS [#/VOLUME] IN BLOOD BY AUTOMATED COUNT 0.06 10*3/uL 0.00 - 0.20 06/08 Specimen Type: BLOOD No comment entered. Ordering Provider: Elicia SCHNEIDER Report Released Date/Time: Jun 08, 2024 07:39 AM Reporting Lab: [facility] [place] [address] Performing Lab: [facility] DIVISION COMPREHEN SIVE METABOLIC PANEL CREATININE [MASS/VOLUM E] IN SERUM OR PLASMA 0.91 mg/dL 0.70 - 1.30 06/08 Specimen Type: PLASMA Comment: No hemolysis noted. Ordering Provider: Elicia SCHNEIDER Report Released Date/Time: Jun 08, 2024 07:39 AM Reporting Lab: [facility] [place] [address] Performing Lab: [facility] DIVISION COMPREHEN SIVE METABOLIC PANEL UREA NITROGEN [MASS/VOLUM E] IN SERUM OR PLASMA 16.5 mg/dL 9.0 - 25.0 06/08 Specimen Type: PLASMA Comment: No hemolysis noted. Ordering Provider: Elicia SCHNEIDER Report Released Date/Time: Jun 08, 2024 07:39 AM Reporting Lab: [facility] [place] [address] Performing Lab: [facility] DIVISION COMPREHEN SIVE METABOLIC PANEL GLUCOSE [MASS/VOLUM E] IN SERUM OR PLASMA 97 mg/dL 72 - 99 06/08 Specimen Type: PLASMA Comment: No hemolysis noted. Ordering Provider: Elicia SCHNEIDER Report Released Date/Time: Jun 08, 2024 07:39 AM Reporting Lab: [facility] [place] [address] Performing Lab: [facility] DIVISION COMPREHEN SIVE METABOLIC PANEL SODIUM [MOLES/VOLU ME] IN SERUM OR PLASMA 139 meq/L 136 - 145 06/08 Specimen Type: PLASMA Comment: No hemolysis noted. Ordering Provider: Elicia SCHNEIDER Report Released Date/Time: Jun 08, 2024 07:39 AM Reporting Lab: [facility] [place] [address] Performing Lab: [facility] DIVISION COMPREHEN SIVE METABOLIC PANEL POTASSIUM [MOLES/VOLU ME] IN SERUM OR PLASMA 4.0 meq/L 3.5 - 5.0 06/08 Specimen Type: PLASMA Comment: No hemolysis noted. Ordering Provider: Elicia SCHNEIDER Report Released Date/Time: Jun 08, 2024 07:39 AM Reporting Lab: [facility] [place] [address] Performing Lab: [facility] DIVISION COMPREHEN SIVE METABOLIC PANEL CHLORIDE [MOLES/VOLU ME] IN SERUM OR PLASMA 106 meq/L 98 - 107 06/08 Specimen Type: PLASMA Comment: No hemolysis noted. Ordering Provider: Elicia SCHNEIDER Report Released Date/Time: Jun 08, 2024 07:39 AM Reporting Lab: [facility] [place] [address] Performing Lab: [facility] DIVISION COMPREHEN SIVE METABOLIC PANEL CARBON DIOXIDE, TOTAL [MOLES/VOLU ME] IN SERUM OR PLASMA 23 meq/L 22 - 31 06/08 Specimen Type: PLASMA Comment: No hemolysis noted. Ordering Provider: Elicai SCHNEIDER Report Released Date/Time: Jun 08, 2024 07:39 AM Reporting Lab: [facility] [place] [address] Performing Lab: [facility] COMPREHEN SIVE METABOLIC PANEL CALCIUM [MASS/VOLUM E] IN SERUM OR PLASMA 10.1 mg/dL 8.4 - 10.4 06/08 Specimen Type: PLASMA Comment: No hemolysis noted. Ordering Provider: Elicia SCHNEIDER Report Released Date/Time: Jun 08, 2024 07:39 AM Reporting Lab: [facility] [place] [address] Performing Lab: [facility] COMPREHEN SIVE METABOLIC PANEL PROTEIN [MASS/VOLUM E] IN SERUM OR PLASMA 7.6 g/dL 6.0 - 8.6 06/08 Specimen Type: PLASMA Comment: No hemolysis noted. Ordering Provider: Elicia SCHNEIDER Report Released Date/Time: Jun 08, 2024 07:39 AM Reporting Lab: [facility] [place] [address] Performing Lab: [facility] DIVISION COMPREHEN SIVE METABOLIC PANEL ALBUMIN [MASS/VOLUM E] IN SERUM OR PLASMA 4.0 g/dL 3.4 - 5.0 06/08 Specimen Type: PLASMA Comment: No hemolysis noted. Ordering Provider: Elicia SCHNEIDER Report Released Date/Time: Jun 08, 2024 07:39 AM Reporting Lab: [facility] [place] [address] Performing Lab: [facility] DIVISION COMPREHEN SIVE METABOLIC PANEL BILIRUBIN.T OTAL [MASS/VOLUM E] IN SERUM OR PLASMA 0.5 mg/dL 0.2 - 1.2 06/08 Specimen Type: PLASMA Comment: No hemolysis noted. Ordering Provider: Elicia SCHNEIDER Report Released Date/Time: Jun 08, 2024 07:39 AM Reporting Lab: [facility] [place] [address] Performing Lab: [facility] DIVISION COMPREHEN SIVE METABOLIC PANEL ALKALINE PHOSPHATASE [ENZYMATIC ACTIVITY/VO LUME] IN SERUM OR PLASMA 45 U/L 40 - 150 06/08 Specimen Type: PLASMA Comment: No hemolysis noted. Ordering Provider: Elicia SCHNEIDER Report Released Date/Time: Jun 08, 2024 07:39 AM Reporting Lab: [facility] [place] [address] Performing Lab: [facility] DIVISION COMPREHEN SIVE METABOLIC PANEL ASPARTATE AMINOTRANSF ERASE [ENZYMATIC ACTIVITY/VO LUME] IN SERUM OR PLASMA 26 U/L 5 - 34 06/08 Specimen Type: PLASMA Comment: No hemolysis noted. Ordering Provider: Elicia SCHNEIDER Report Released Date/Time: Jun 08, 2024 07:39 AM Reporting Lab: [facility] [place] [address] Performing Lab: [facility] DIVISION COMPREHEN SIVE METABOLIC PANEL ALANINE AMINOTRANSF ERASE [ENZYMATIC ACTIVITY/VO LUME] IN SERUM OR PLASMA 9 U/L 8 - 40 06/08 Specimen Type: PLASMA Comment: No hemolysis noted. Ordering Provider: Elicia SCHNEIDER Report Released Date/Time: Jun 08, 2024 07:39 AM Reporting Lab: [facility] [place] [address] Performing Lab: [facility] DIVISION COMPREHEN SIVE METABOLIC PANEL GLOMERULAR FILTRATION RATE/1.73 SQ M.PREDICTED [VOLUME RATE/AREA] IN SERUM, PLASMA OR BLOOD BY CREATININE- BASED FORMULA (CKD-EPI 2020) 82.08 60 06/08 Specimen Type: PLASMA Comment: No hemolysis noted. Ordering Provider: Elicia SCHNEIDER Report Released Date/Time: Jun 08, 2024 07:39 AM Reporting Lab: [facility] [place] [address] Performing Lab: [facility] DIVISION TSH (MA-PB) THYROTROPIN [UNITS/VOLU ME] IN SERUM OR PLASMA 3.557 u[IU]/m L 0.470 - 5.000 06/08 Specimen Type: SERUM No comment entered. Ordering Provider: Elicia SCHNEIDER Report Released Date/Time: Jun 08, 2024 07:39 AM Reporting Lab: [facility] [place] [address] Performing Lab: [facility] DIVISION B12 COBALAMIN (VITAMIN B12) [MASS/VOLUM E] IN SERUM OR PLASMA 1214 pg/mL 213 - 816 06/08 H Specimen Type: SERUM No comment entered. Ordering Provider: Elicia SCHNEIDER Report Released Date/Time: Jun 08, 2024 07:39 AM Reporting Lab: [facility] [place] [id number] Performing Lab: [facility] DIVISION LIPID PANEL (STL) CHOLESTEROL [MASS/VOLUM E] IN SERUM OR PLASMA 192 mg/dL 0 - 200 06/08 Specimen Type: PLASMA Comment: No hemolysis noted. Ordering Provider: Elicia SCHNEIDER Report Released Date/Time: Jun 08, 2024 07:39 AM Reporting Lab: [facility] [place] [id number] Performing Lab: [facility] LIPID PANEL (STL) TRIGLYCERID E [MASS/VOLUM E] IN SERUM OR PLASMA 104 mg/dL 0 - 150 06/08 Specimen Type: PLASMA Comment: No hemolysis noted. Ordering Provider: Eliica SCHNEIDER Report Released Date/Time: Jun 08, 2024 07:39 AM Reporting Lab: [facility] [place] [id number] Performing Lab: [facility] LIPID PANEL (STL) CHOLESTEROL IN LDL [MASS/VOLUM E] IN SERUM OR PLASMA BY CALCULATION 115 mg/dL 06/08 Specimen Type: PLASMA Comment: No hemolysis noted. Ordering Provider: Elicia SCHNEIDER Report Released Date/Time: Jun 08, 2024 07:39 AM Reporting Lab: [facility] [place] [id number] Performing Lab: [facility] LIPID PANEL (STL) CHOLESTEROL IN HDL [MASS/VOLUM E] IN SERUM OR PLASMA 56 mg/dL 40 06/08 Specimen Type: PLASMA Comment: No hemolysis noted. Ordering Provider: Elicia SCHNEIDER Report Released Date/Time: Jun 08, 2024 07:39 AM Reporting Lab: [facility] [place] [id number] Performing Lab: [facility] DIVISION HGA1C HEMOGLOBIN A1C/HEMOGLO BIN.TOTAL IN BLOOD 6.2 4.0 - 6.0 06/08 H Specimen Type: BLOOD No comment entered. Ordering Provider: Elicia SCHNEIDER Report Released Date/Time: Jun 08, 2024 07:39 AM Reporting Lab: [facility] [place] [address] Performing Lab: [facility] DIVISION VITAMIN D, 25-HYDROX Y 25-HYDROXYV ITAMIN D3 [MASS/VOLUM E] IN SERUM OR PLASMA 43.7 ng/mL 30 - 96 06/08 Specimen Type: SERUM No comment entered. Ordering Provider: Elicia SCHNEIDER Report Released Date/Time: Jun 08, 2024 07:39 AM Reporting Lab: [facility] [place] [address] Performing Lab: [facility] DIVISION FOLATE (STL-MA) FOLATE [MASS/VOLUM E] IN SERUM OR PLASMA 38.6 ng/mL 7 - 20 06/08 H Specimen Type: SERUM No comment entered. Ordering Provider: Elicia SCHNEIDER Report Released Date/Time: Jun 08, 2024 01:32 PM Reporting Lab: [facility] [place] [address] Performing Lab: [facility] DIVISION MICROSCOP IC URINALYSI S LEUKOCYTES [#/AREA] IN URINE SEDIMENT BY MICROSCOPY HIGH POWER FIELD 6-10/[H PF] 0 - 5 11/13 H Specimen Type: URINE CLEAN CATCH No comment entered. Ordering Provider: REBECCA POWELL A Report Released Date/Time: Nov 11, 2023 02:08 PM Reporting Lab: [facility] [address] [facility] [address] Performing Lab: [facility] [address] [facility] [address] [facility] MICROSCOP IC URINALYSI S BACTERIA [PRESENCE] IN URINE SEDIMENT BY LIGHT MICROSCOPY FEW/[HP F] 11/13 Specimen Type: URINE CLEAN CATCH No comment entered. Ordering Provider: REBECCA POWELL A Report Released Date/Time: Nov 11, 2023 02:08 PM Reporting Lab: [facility] [address] [facility] [address] Performing Lab: [facility] [address] [facility] [address] [facility] MICROSCOP IC URINALYSI S EPITHELIAL CELLS.SQUAM OUS [#/AREA] IN URINE SEDIMENT BY MICROSCOPY HIGH POWER FIELD 3-6/[HP F] 0 - 5 11/13 Specimen Type: URINE CLEAN CATCH No comment entered. Ordering Provider: REBECCA POWELL A Report Released Date/Time: Nov 11, 2023 02:08 PM Reporting Lab: [facility] [address] [facility] [address] Performing Lab: [facility] [address] [facility] [address] [facility] MICROSCOP IC URINALYSI S ERYTHROCYTE S [#/AREA] IN URINE SEDIMENT BY MICROSCOPY HIGH POWER FIELD 3-6/[HP F] 0 - 2 11/13 H Specimen Type: URINE CLEAN CATCH No comment entered. Ordering Provider: REBECCA POWELL A Report Released Date/Time: Nov 11, 2023 02:08 PM Reporting Lab: [facility] [address] [facility] [address] Performing Lab: [facility] [address] [facility] [address] [facility] URINALYSI S COLOR OF URINE STRAW 11/13 Specimen Type: URINE CLEAN CATCH No comment entered. Ordering Provider: REBECCA POWELL A Report Released Date/Time: Nov 11, 2023 02:08 PM Reporting Lab: [facility] [address] [place] [address] Performing Lab: [facility] [address] [place] [address] [facility] URINALYSI S UA SPEC GRAV 1.010 1.005 - 1.035 11/13 Specimen Type: URINE CLEAN CATCH No comment entered. Ordering Provider: REBECCA POWELL A Report Released Date/Time: Nov 11, 2023 02:08 PM Reporting Lab: [facility] [address] [place] [address] Performing Lab: [facility] [address] [place] [address] [facility] URINALYSI S PH OF URINE BY TEST STRIP 8.0 [pH] 5 - 8 11/13 Specimen Type: URINE CLEAN CATCH No comment entered. Ordering Provider: REBECCA POWELL A Report Released Date/Time: Nov 11, 2023 02:08 PM Reporting Lab: [facility] [address] [place] [address] Performing Lab: [facility] [address] [place] [address] [facility] URINALYSI S NITRITE [PRESENCE] IN URINE BY TEST STRIP 1+ . 11/13 Specimen Type: URINE CLEAN CATCH No comment entered. Ordering Provider: REBECCA POWELL A Report Released Date/Time: Nov 11, 2023 02:08 PM Reporting Lab: [facility] [address] [place] [address] Performing Lab: [facility] [address] [place] [address] [facility] URINALYSI S UROBILINOGE N [MASS/VOLUM E] IN URINE BY TEST STRIP <2.0mg/ dL 11/13 Specimen Type: URINE CLEAN CATCH No comment entered. Ordering Provider: REBECCA POWELL A Report Released Date/Time: Nov 11, 2023 02:08 PM Reporting Lab: [facility] [address] [place] [address] Performing Lab: [facility] [address] [facility] [address] [facility] URINALYSI S APPEARANCE OF URINE 1+ 11/13 Specimen Type: URINE CLEAN CATCH No comment entered. Ordering Provider: REBECCA POWELL A Report Released Date/Time: Nov 11, 2023 02:08 PM Reporting Lab: [facility] [address] [place] [address] Performing Lab: [facility] [address] [place] [address] [facility] URINALYSI S GLUCOSE [MASS/VOLUM E] IN URINE BY TEST STRIP NORMAL 11/13 Specimen Type: URINE CLEAN CATCH No comment entered. Ordering Provider: REBECCA POWELL A Report Released Date/Time: Nov 11, 2023 02:08 PM Reporting Lab: [facility] [address] [place] [address] Performing Lab: [facility] [address] [place] [address] [facility] URINALYSI S PROTEIN [MASS/VOLUM E] IN URINE BY TEST STRIP - 11/13 Specimen Type: URINE CLEAN CATCH No comment entered. Ordering Provider: REBECCA POWELL A Report Released Date/Time: Nov 11, 2023 02:08 PM Reporting Lab: [facility] [address] [place] [address] Performing Lab: [facility] [address] [place] [address] [facility] URINALYSI S BILIRUBIN.T OTAL [PRESENCE] IN URINE BY TEST STRIP - 11/13 Specimen Type: URINE CLEAN CATCH No comment entered. Ordering Provider: REBECCA POWELL A Report Released Date/Time: Nov 11, 2023 02:08 PM Reporting Lab: [facility] [address] [place] [address] Performing Lab: [facility] [address] [place] [address] [facility] URINALYSI S HEMOGLOBIN [PRESENCE] IN URINE BY TEST STRIP 1+ 11/13 Specimen Type: URINE CLEAN CATCH No comment entered. Ordering Provider: REBECCA POWELL A Report Released Date/Time: Nov 11, 2023 02:08 PM Reporting Lab: [facility] [address] [place] [address] Performing Lab: [facility] [address] [place] [address] [facility] URINALYSI S KETONES [MASS/VOLUM E] IN URINE BY TEST STRIP - 11/13 Specimen Type: URINE CLEAN CATCH No comment entered. Ordering Provider: REBECCA POWELL Report Released Date/Time: Nov 11, 2023 02:08 PM Reporting Lab: [facility] [address] [place] [address] Performing Lab: [facility] [address] [place] [address] [facility] URINALYSI S LEUKOCYTE ESTERASE [PRESENCE] IN URINE BY TEST STRIP 250 - 74 11/13 H Specimen Type: URINE CLEAN CATCH No comment entered. Ordering Provider: REBECCA POWELL Report Released Date/Time: Nov 11, 2023 02:08 PM Reporting Lab: [facility] [address] [place] [address] Performing Lab: [facility] [address] [place] [address] [facility] Vital Signs Combined list of inpatient and outpatient Vital Signs from Department of Defense and Veterans Affairs, ranging from 12 months to all on record, depending upon the facility. Vital Sign Value Date Comments Source SYSTOLIC BLOOD PRESSURE 100 06/08/2024 12:56:19 [facility] DIASTOLIC BLOOD PRESSURE 69 06/08/2024 12:56:19 [facility] PULSE OXIMETRY 95 06/08/2024 12:56:19 [facility] WEIGHT 185.9 06/08/2024 12:56:19 [facility] BMI 28kg/m2 06/08/2024 12:56:19 [facility] PAIN 4 06/08/2024 12:56:19 [facility] HEIGHT 68 06/08/2024 12:56:19 [facility] TEMPERATURE 98 06/08/2024 12:56:19 [facility] PULSE 96 06/08/2024 12:56:19 [facility] RESPIRATION 20 06/08/2024 12:56:19 [facility] SYSTOLIC BLOOD PRESSURE 135 10/20/2023 08:40:42 [facility] DIASTOLIC BLOOD PRESSURE 75 10/20/2023 08:40:42 [facility] PULSE OXIMETRY 94 10/20/2023 08:40:42 [facility] WEIGHT 195.8 10/20/2023 08:40:42 [facility] BMI 31kg/m2 10/20/2023 08:40:42 [facility] PAIN 7 10/20/2023 08:40:42 [facility] HEIGHT 67 10/20/2023 08:40:42 [facility] TEMPERATURE 97.7 10/20/2023 08:40:42 [facility] PULSE 69 10/20/2023 08:40:42 [facility] RESPIRATION 16 10/20/2023 08:40:42 [facility] Encounters Combined list of: 1) Encounters from Department of Veterans Affairs facilities going back up to thelast 18 months. 2) Encounters from the Department of [employer] facilities going back up to 280 months. Location Location Details Encounter Type Encounter Number Reason For Visit Attending Provider ADM Date DC Date Status Disposition Source FRACISCO CHANCE [facility] Outpatient Encounter [id number] LUIS RUGGIERO 06/10 BALDEV GRANT [facility] [place] [facility] Outpatient Encounter [id number] SE DANIEL RILEY 06/15 BALDEV GRANT [facility] [place] [facility] Outpatient Encounter [id number] [facility] [place] [facility] Outpatient Encounter [id number] YOUNG LOFTON 10/05 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<br/ > FABIANA MEDINA Lisandro 10/18 [facility] OFF[facility] O/P EST MOD 30 MIN [id number] Diagnos is: ICD-10- CM M79.661 Pain in right lower leg<br/ > REBECCA POWELL Katerine 10/19 [facility] [place] [facility] Outpatient Encounter [id number] 10/22 C[facility]Y [facility] UPR/L XTREMITY ART 2 LEVELS [id number] Diagnos is: ICD-10- CM R68.89 Other general symptom s and signs<b r/> WESLY ROWEArnel Garcias 10/25 [facility] OFF[facility] O/P EST MOD 30 MIN [id number] Diagnos is: ICD-10- CM 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< br/> JEFFERY BURGOS 10/27 [facility] [place] [facility] Outpatient Encounter [id number] 11/07 BALDEV GRANT [facility] [place] [facility] Outpatient Encounter [id number] 11/17 [facility] [place] [facility] Outpatient Encounter [id number] 12/01 C[facility]Y [facility] [place] [facility] Outpatient Encounter [id number] 12/01 [facility] [place] [facility] Outpatient Encounter [id number] 12/04 [facility] HC PRO PHONE CALL 11-20 MIN [id number] Diagnos is: ICD-10- CM R68.89 Other general symptom s and signs<b r/> IFRAH JUÁREZ N 12/05 [facility] Outpatient Encounter [id number] 01/15 [facility] Encounter [id number] 01/23 [facility] POSTOP FOLLOW-UP VISIT [id number] [id number] Diagnos is: ICD-10- CM Z48.810 Encntr for surgica l aftcr fol surgery on the sense organs< br/> JEFFERY BURGOS 02/15 [facility] Outpatient Encounter [id number] 03/09 [facility] Outpatient Encounter [id number] 04/05 BALDEV GRANT [facility] Outpatient Encounter [id number] Bettina QUAN 05/22 [facility] Outpatient Encounter [id number] 05/31 [facility] TARGETED CASE MANAGEMENT [id number] HARLAN SANDOVAL 06/04 [facility] TARGETED CASE MANAGEMENT [id number] Diagnos is: ICD-10- CM Y93.E6 Activit y, residen tial relocat ion<br/ > HOLLIE WELDON [place] 06/04 BALDEV GRANT [facility] PH1 ASSMT&MGMT NQHP 11-20 [id number] Diagnos is: ICD-10- CM 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
Elicia SCHNEIDER 06/08 [facility] N Social History Combined list of available smoking, tobacco, and other social history from Department of Defense and Veterans Affairs facilities. Social History Type Response Date Comment Sourc e Tobacco smoking status NHIS VA-TOBACCO USE FORMER CIGARETTES 06/08/2024 [facility] History of tobacco use IA-TOBACCO NEVER USED OTHER TYPE 06/08/2024 [facility] History of tobacco use VA-TOBACCO FORMER USER 10/19/2023 [facility] History of tobacco use VA-TOBACCO FORMER USER 10/19/2022 [facility] History of tobacco use VA-TOBACCO FORMER USER 09/22/2021 [facility] History of tobacco use VA-TOBACCO NEVER USED 10/03/2020 [facility] History of tobacco use VA-TOBACCO FORMER USER 10/02/2020 [facility] History of tobacco use VA-TOBACCO QUIT 5 TO < 15 YRS 02/22/2019 [facility] History of tobacco use VA-TOBACCO FORMER USER 04/11/2018 [facility] History of tobacco use V16 TOBACCO USE SCREEN 12/20/2016 [facility] Plan of Care List of future care activities from Department of [facility] Affairs facilities. Additional future care activities may be listed in the Assessment and Plan section. Date/Time Care Activity Care Activity Detail Facili ty 10/18/2024 AMBULATORY - NONE AMB[facility]ATORY - NONE [facility] 10/18/2024 AMBULATORY - MEDICINE AMBULATORY - MEDICI NE [facility] 12/13/2024 AMBULATORY - MEDICINE AMBULATORY - MEDICI NE [facility] 06/08/2024 Laboratory - Taxation Economist ry Order URINALYSIS (STL-PB) URINE - CLEAN CATCH SP [facility] 06/08/2024 Laboratory - Taxation Economist ry Order MICRAL/CREAT PROFILE (STL) URINE YELLOW SP [facility] 06/08/2024 Laboratory - Taxation Economist ry Order B12 GOLD/RED SST SERUM SP [facility]
--- OUTSIDE RECORDS SUMMARY | 2024-06-23 02:43 | XMS_ITS | Encounter Summary ---
Author Name [facility] Address [address] [place] [address] Care Team Providers Care College Athletic Director Name Role Phone NANDA SCHNEIDER Primary Care [...] PART A Dec 21, 2002 PART A [id number] [facility] JAK LUNA PATIENT MEDICARE (WNR) MEDICARE (M) PART A Dec 21, 2002 PART A [id number] [facility] [phone] JAK LUNA PATIENT Selected Encounter This section includes the information on record at ME for the Encounter. 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 Date/Time Primary/Secondary Diagnosis Diagnosis Name Provider Source Oct 28, 2023 12:47 PM PRIMARY Senile entropion of right lower eyelid LAVELL BURGOS [facility] Oct 28, 2023 12:47 PM SECONDARY Dermatochalasis of left lower eyelid LAVELL BURGOS [facility] Oct 28, 2023 12:47 PM SECONDARY Dermatochalasis of right lower eyelid LAVELL BURGOS [facility] Oct 28, 2023 12:47 PM SECONDARY Dry eye syndrome of bilateral lacrimal glands LAVELL BURGOS [facility] Oct 28, 2023 12:47 PM SECONDARY Type 2 diabetes mellitus without complications LAVELL BURGOS [facility] Plan of Treatment: Future Appointments (+ 6 months) and Future Tests (+/- 45 days) The Plan of Treatment section includes future care activities for the patient from all [place] treatmentcilities. This section includes future appointments and future orders which are active, pending or scheduled. Future Appointments This section includes appointments that were scheduled to occur 6 months from the date of the Encounter, up to a maximum of 20 appointments. The data comes from all [place] treatment facilities. Appointment Date/Time Appointment Type Appointme nt Facility Name Nov 14, 2023 08:00 AM AMBULATORY - NONE [facility] Dec 02, 2023 10:30 AM AMBULATORY - NONE JEFERSON ROMERO [facility] Feb 16, 2024 02:00 PM AMBULATORY - SURGERY [facility] Lab Results: +/- 30 days of the encounter This section includes the Chemistry and Hematology Lab Results on record with ME for the patient. Radiology Reports and Pathology Reports are provided separately, in subsequent sections. Lab Results This section contains the Chemistry/Hematology Results that were resulted 30 days before or 30 daysafter the date of the Encounter. Date/Time Source Result Type Result - Unit Interpretation Reference Range Comment Nov 14, 2023 08:35 AM [facility] MICROSCOPIC URINALYSIS Specimen Type: URINE CLEAN CATCH No comment entered. Ordering Provider: ARTURO POWELL Report Released Date/Time: Nov 11, 2023 02:08 PM Reporting Lab: [facility] [address] [facility] [address] Performing Lab: [facility] [address] [facility] [address] UA WBC 6-10 /[HPF] H 0-5 UA BACTERIA FEW /[HPF] UA SQUAM EPITHELIAL 3-6 /[HPF] 0-5 UA RBC 3-6 /[HPF] H 0-2 Nov 14, 2023 08:35 AM [facility] URINALYSIS Specimen Type: URINE CLEAN CATCH No comment entered. Ordering Provider: ARTURO POWELL A Report Released Date/Time: Nov 11, 2023 02:08 PM Reporting Lab: [facility] [address] [place] [address] [place] [address] Performing Lab: [facility] [address] [place], [place] [address] [address] UA COLOR STRAW COLORLESS- YELLOW UA SPEC GRAV 1.010 1.005-1 .03 5 UA PH 8.0 [pH] 5-8 UA NITRITE 1+ Neg.-Neg UA UROBILINOGEN <2.0 mg/dL UA APPEARANCE 1+ UA GLUCOSE NORMAL NEG-TRACE UA PROTEIN - NEG UA BILI - NEG UA BLOOD 1+ NEG-TRACE UA KETONES - NEG-TRACE UA LEUK EST 250 H NEG-74 October 20, 2023 08:08 AM [facility] LIPID PROFILE (FV) Specimen Type: PLASMA No comment entered. Ordering Provider: ARTURO POWELL NE A Report Released Date/Time: Oct 21, 2022 03:50 PM Reporting Lab: [facility] [address] [place] [address] [place] [address] Performing Lab: [facility] [place] [place] [address] CHOLESTEROL, TOTAL (FV) 167 mg/dL 118-200 TRIGLYCERIDE (FV) 108 mg/dL <200 LDL CHOLESTEROL (CALCULATED) 93 mg/dL HDL CHOLESTEROL (FV) 52 mg/dL >40 October 20, 2023 08:08 AM [facility] CBC (FV) Specimen Type: BLOOD No comment entered. Ordering Provider: ARTURO POWELL NE A Report Released Date/Time: Oct 21, 2022 03:50 PM Reporting Lab: [facility] [address] [place] [address] [address] Performing Lab: [facility] [place] [place] [address] RDW (FV) 12.9 11.5-14.5 HCT (FV) 40.3 [...] 0.0-0.2 October 20, 2023 08:08 AM [facility] RENAL+LIVER PROFILE Specimen Type: PLASMA No comment entered. Ordering Provider: ARTURO POWELL Report Released Date/Time: Oct 21, 2022 03:50 PM Reporting Lab: [address] [address] Performing Lab: [address] [address] GLUCOSE (FV) 109 mg/dL 70-110 ALBUMIN (FV) [...] L >90 October 20, 2023 08:08 AM [facility] TSH (FV) Specimen Type: SERUM No comment entered. Ordering Provider: ARTURO POWELL NE A Report Released Date/Time: Oct 21, 2022 03:50 PM Reporting Lab: [facility] [address] [facility] [address] Performing Lab: [facility] [address] [facility] [address] TSH (FV) 3.89 u[IU]/mL 0.45-5.33 October 20, 2023 08:08 AM [facility] FOLIC ACID Specimen Type: SERUM No comment entered. Ordering Provider: ARTURO POWELL NE A Report Released Date/Time: Nov 22, 2022 04:51 PM Reporting Lab: [facility] [address] [facility] [address] Performing Lab: [facility] October 20, 2023 08:08 AM [facility] VITAMIN B12 Specimen Type: SERUM No comment entered. Ordering Provider: ARTURO POWELL NE A Report Released Date/Time: Oct 21, 2022 03:50 PM Reporting Lab: [facility] [address] [facility] [address] Performing Lab: [facility] [address] [facility] [address] VITAMIN B12 (FV) 762 pg/mL 180-914 October 20, 2023 08:08 AM [facility] VITAMIN D 25-OH Specimen Type: SERUM No comment entered. Ordering Provider: ARTURO POWELL NE A Report Released Date/Time: Nov 22, 2022 04:51 PM Reporting Lab: [facility] [address] [facility] [address] Performing Lab: [facility] [address] [facility] [address] VITAMIN D 25-OH 61.19 ng/mL 30-100 October 20, 2023 08:08 AM [facility] MICROSCOPIC URINALYSIS Specimen Type: URINE Comment: Specimen reflexed to culture due to increased WBCs. Ordering Provider: ARTURO POWELL NE A Report Released Date/Time: Oct 21, 2022 03:50 PM Reporting Lab: [facility] [address] [facility] [place] [address] Performing Lab: [facility] [address] [facility] [place] [place] [address] UA WBC 16-20 /[HPF] H 0-5 UA BACTERIA MANY /[HPF] UA RBC NONE PRESENT /[HPF] 0-2 October 20, 2023 08:08 AM [facility] URINALYSIS Specimen Type: URINE Comment: Specimen reflexed to culture due to increased WBCs. Ordering Provider: ARTURO POWELL Report Released Date/Time: Oct 21, 2022 03:50 PM Reporting Lab: [facility] [address] [place], [place] [address] [address] Performing Lab: [facility] [address] [place] [address] UA COLOR STRAW COLORLESS- YELLOW UA SPEC GRAV 1.009 1.005-1 .03 5 UA PH 7.5 [pH] 5-9 UA NITRITE 1+ Neg.-Neg UA UROBILINOGEN <2.0 mg/dL UA APPEARANCE - UA GLUCOSE NORMAL NEG-TRACE UA PROTEIN - NEG UA BILI - NEG UA BLOOD - NEG-TRACE UA KETONES - NEG-TRACE UA LEUK EST 500 H NEG-74 Social History: Smoking Status (Most current) and Tobacco Use (All prior to encounter date) This section includes the most current, and the historical, smoking and tobacco- related health factors from the [place] facility where the Encounter took place. Current Smoking Status This section includes the most current smoking, or tobacco-related health factor, from the [place] facility where the Encounter took place. Date/Time Current Smoking Status Comment Nathaniel meek October 19, 2023 03:00 PM VA-TOBACCO FORMER USER [facility] Tobacco Use History This section includes a history of the smoking, or tobacco-related health factors, that were collected on or before the date of the Encounter. The data comes from the ME facility where the Encounter took place. Date/Time Smoking Status/Tobacco Use Comment F acility October 19, 2023 03:00 PM VA-TOBACCO QUIT 5 TO < 15 YRS [facility] October 19, 2022 04:00 PM VA-TOBACCO FORMER USER [facility] October 19, 2022 04:00 PM VA-TOBACCO QUIT 15 YRS OR MORE [facility] September 22, 2021 04:00 PM VA-TOBACCO FORMER [...] the Encounter. The data comes from all [place] treatment facilities. Date/Time Pathology Report Provider Source Nov 14, 2023 08:35 AM LR MICROBIOLOGY RE PORT: Accession [UID]: [id number] [[id number]] Received: Nov 14, 2023@08:35 Collection sample: URINE CLEAN CATCH Collection date: Nov 14, 2023 08:35 Provider: MARLO POWELL Comment on specimen: na Test(s) ordered: CULTURE, URINE................ completed: Nov 16, 2023 10:24 * BACTERIOLOGY FINAL REPORT => Nov 16, 2023 10:25 TECH CODE: [id number] Bacteriology Remark(s): Preliminary Report: >25,000 - <50,000 CFU/ML MIXED GRAM POS DANNI, PROBABLE CONTAMINANTS. Final Report: >50,000 - <75,000 CFU/ML MIXED GRAM POS DANNI, PROBABLE CONTAMINANTS. =--=--=--=--=--=--=--=--=--=--=- -=--=--=--=--=--=--=--=--=--=--= --=--=--=--=-- Performing Laboratory: Bacteriology Report Performed By: [facility] [CLIA# [id number]] [address] [facility]. [place] [address] VAHE WOMACK [facility] October 20, 2023 08:28 AM LR MICROBIOLOGY RE PORT: Accession [UID]: [id number] [[id number]] Received: October 20, 2023@08:28 Collection sample: URINE CLEAN CATCH Collection date: October 20, 2023 08:28 Provider: MARLO POWELL Test(s) ordered: CULTURE, URINE................ completed: Oct 22, 2023 08:14 * BACTERIOLOGY FINAL REPORT => Oct 22, 2023 08:14 TECH CODE: [id number] Bacteriology Remark(s): Preliminary Report: >10,000 - <25,000 CFU/ML MIXED GRAM POS DANNI, PROBABLE CONTAMINANTS. Final Report: >10,000 - <25,000 CFU/ML MIXED GRAM POS DANNI, PROBABLE CONTAMINANTS. =--=--=--=--=--=--=--=--=--=--=- -=--=--=--=--=--=--=--=--=--=--= --=--=--=--=-- Performing Laboratory: Bacteriology Report Performed By: [facility] [CLIA# [id number]] [address] [facility] [address] CASSIE CRENSHAW [facility] Encounter Notes: All associated encounter notes This section contains the clinical notes associated to the Encounter. 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 No If yes, where has the patient traveled? Family Ocular History: Glaucoma: No. Macular Degeneration: No. Blindness: No. Patient Medical History: Tobacco: no Mental Status: Alert and oriented Allergies: Patient has answered NKA Diabetes Mellitus Yes Hemoglobin A1C 6.6 % H (10/20/2022 09:29) Date of diagnosis: 2016 Diet. Patient Ocular History: Macular degeneration No. Glaucoma: No. Eye injuries: None. Eye Surgery: Cataract Surgery Right eye 2017 Left eye 2019 Eye Meds: Artificial tears Visual Acuity: Right eye: 20/25-1; With glasses Left eye: 20/400; With glasses, Pinhole: 20/NI Glasses Prescription by Lensometry: Habitual pair: May be an older pair Right eye: -0.25+0.50x7 Left eye: +0.00+0.21i342 Add: +3.00 Bifocal Chief Complaint: Established pt. here for dilated exam. Vet states vision is worse, and he can't read well anymore. 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 No If yes, where has the patient traveled? Family Ocular History: Glaucoma: No. Macular Degeneration: No. Blindness: No. Patient Medical History: Tobacco: no Mental Status: Alert and oriented Allergies: Patient has answered NKA Diabetes Mellitus Yes Hemoglobin A1C 6.6 % H (10/20/2022 09:29) Date of diagnosis: 2016 Diet. Patient Ocular History: Macular degeneration No. Glaucoma: No. Eye injuries: None. Eye Surgery: Cataract Surgery Right eye 2017 Left eye 2019 Eye Meds: Artificial tears Visual Acuity: Right eye: 20/25-1; With glasses Left eye: 20/400; With glasses, Pinhole: 20/NI Glasses Prescription by Lensometry: Habitual pair: May be an older pair Right eye: -0.25+0.50x7 Left eye: +0.00+0.31o883 Add: +3.00 Bifocal Chief Complaint: Established pt. here for dilated exam. Vet states vision is worse, and he can't read well anymore. Nurse's intake/assessment note reviewed/confirmed. Brief Problem List: [...] deviation (describe below): L hyper/XT Manifest Refraction: 10/28/23 Right eye -0.75+1.95d789 20/25- Left eye plano 20/100 Add +3.25 demonstrated 20/30 easily and 20/20 difficult @ ~11 OD Intraocular pressure: @ 0822 Right eye 16 Left eye 17 flat keratosis on right upper eyelid temporally, and along inner left side of bridge of nose. Slit Lamp Exam: Lids/Lashes/Conjunctiva: intermittent spastic entropion lower lids left eye> right with few trichiasis. lower lid lag/scleral show right lower lid worse than left; mild lower entropion both lower lids; poor tear flow and drainage right eye>left, some epiphora central and temporal canthus right eye.; bilateral upper ptosis/dermatochalasis with MRD ~1mm OU Cornea: trace inf SPK right eye, clear left eye ; Anterior [...] and thin just superior to fovea; , community liaison officer 229 OS: shallow fovea but normal contour; fovea not found on oct measurement Internal Exam: dilation warning, right eye, left eye, 0.5% Tropicamide @0828 Media: asteroid hyalosis right eye, clear left [...] lower corneal exposure due to #5 5. upper and lower dermatochalasis right eye>left, with intermittent lower entropion and slight trichiasis both lower lids; poor tear flow right eye discussed with patient that this may be the most obvious reason his reading vision seems sporadic and slow 6. presbyopia Plan: 1. monitor 2. monitor 3. Educate and monitor, discussed diabetic eye disease and importance of good blood pressure and blood glucose control. 4-5. Refresh Tears as often as desired, but AT LEAST QID, patient to report any increased symptoms of watering, irritation, redness; discussed with him that he may need lid surgery or Quickert suture for lower lids, and he would like to proceed with consult for that. 6. continue glasses with stronger add; reminded him that his reading distance will be less than a foot from his eyes with this and he states he understands. Also reminded to keep trying floor lamp/magnifier and handheld magnifiers that he now has. Patient and/or surrogate verbalized understanding of the instructions/information given. Return to Clinic: 6mos dilation in AM /es/ LAVELL BURGOS, OD STAFF GIS PHYSICAL SCIENTIST, Signed: 10/28/2023 12:51 LORETTA,LAVELL HO OC
[2024-06-23 02:46] LABS: Alanine Aminotransferase 13 U/L (6-50); Albumin Level 3.8 g/dL (3.5-5.1); Alkaline Phosphatase 52 U/L (38-126); Anion Gap 10 mmol/L (4-12); Aspartate Amino Transferase 20 U/L (17-59); Bilirubin,Total 0.6 mg/dL (0.2-1.3); Blood Urea Nitrogen 17 mg/dL (9-20); Calcium 9.1 mg/dL (8.4-10.2); Carbon Dioxide 23 mmol/L (22-30); Chloride 104 mmol/L (98-107); Estimated CRCL calculation 50 ml/min; Estimated Glomerular Filt Rate > 60; Glucose 121 mg/dL (65-110); Potassium 4.2 mmol/L (3.4-5.0); Sodium 137 mmol/L (137-145)
[2024-06-23 02:50] LABS: Add Urine Microscopic? YES; Appearance Urine Cloudy (Clear); Bacteria Urine Rare /hpf; Bilirubin Urine Negative (Negative); Blood Urine Negative (Negative); Color Urine Yellow (Yellow); Glucose Urine UA Negative (Negative); Ketones Urine Negative (Negative); Leukocyte Esterase Ur 3+ LEU/UL (Negative); Nitrate Urine Negative (Negative); Non Pathogenic Casts 0-2; Protein Urine Negative (Negative); RBC Urine 0-2 /hpf (0-2); Specific Grav Ur 1.008 (1.001-1.035); Squamous Epithelial Cell Urine None Seen /hpf (Few); Urobilinogen Urine 0.2 mg/dL (<2.0); WBC Urine 21-50 /hpf (0-3)
[2024-06-23 04:50] VITALS: BP 129/89; BP 98/48; PULSE 85; PULSE 88; RESP 14; O2SAT 98
--- NOTE | 2024-06-23 05:03 | ED_ITS ---
HPI - Fall General Chief Complaint: Fall Stated Complaint: fall, weakness Time Seen by Provider: 06/23/24 02:56 History of Present Illness HPI Narrative: Patient is an 84-year-old male who presents ER after a fall at his assisted living. Reports he is not using his cane when he lost balance falling. He did strike his head. No loss of consciousness. He does have history DVT in takes anticoagulation. He is unsure the name of the medication. No chest pain or chest pressure. Had difficulty getting up so he had to call 911. He has an abrasion to left knee from the fall. No additional complaints of pain this time. Review of Systems 2 Review of Systems: All systems reviewed & are unremarkable except as noted in HPI and below Constitutional: Constitutional: Reports no additional constitutional complaints Cardiovascular: Cardiovascular: Reports no additional cardiovascular complaints Respiratory: Respiratory: Reports no additional respiratory complaints Gastrointestinal: Gastrointestinal: Reports no additional gastrointestinal complaints Neurologic: Reports system reviewed and no additional complaints, except as documented PMFSH Past Medical History Medical History (Updated 06/23/24 @ 06:36 by Dl Woodall MD) Hyperlipidemia BPH (benign prostatic hyperplasia) DVT (deep venous thrombosis) Exam 2 Narrative: GENERAL: Chronically ill-appearing, well-nourished, and in no acute distress. HEAD: Normocephalic, atraumatic. ENT: Mucous membranes moist. NECK: Supple. CHEST: Clear to auscultation. No respiratory distress. HEART: Regular rate and rhythm. Normal peripheral pulses. ABDOMEN: Soft, nontender, nondistended. EXTREMITIES: Normal range of motion. No edema. SKIN: Warm, dry, no rash. Right knee abrasion. NEURO: Alert and oriented x3. PSYCH: Normal mood and affect. Course Course Emergency Course: No fractures. Up and ambulatory. Orthostatics improved with IVF. Patient is urinating but has slightly more blood in it since straight cath. Given white blood cells in urine and 3+ leukocyte esterase will cautiously treat for UTI. Vital Signs Vital signs: Vital Signs Temperature 98.2 F 06/23/24 02:15 Pulse Rate 84 06/23/24 02:15 Respiratory Rate 16 06/23/24 02:15 Blood Pressure 98/58 L 06/23/24 02:15 Pulse Oximetry 97 06/23/24 02:15 Oxygen Delivery Room Air 06/23/24 02:15 Temperature 98.2 F 06/23/24 02:15 Pulse Rate 92 06/23/24 06:06 Respiratory Rate 14 06/23/24 04:50 Blood Pressure 99/70 L 06/23/24 06:06 Pulse Oximetry 98 06/23/24 04:50 Oxygen Delivery Room Air 06/23/24 02:15 MDM - Fall Lab Data 06/23/24 02:29 06/23/24 02:29 Labs: Lab Results 06/23/24 Range/Units 02:29 WBC 7.9 (4.5-10.0) K/mm3 RBC 4.30 L (4.6-6.20) M/mm3 Hgb 13.0 L (14.0-18.0) g/dL Hct 37.9 L (42.0-52.0) % MCV 88.1 (80-100) fl MCH 30.2 (26-34) pg MCHC 34.3 (32-36) g/dl RDW 11.7 (11.5-14.5) % Plt Count 236 (150-375) k/mm3 MPV 9.4 (7.4-10.4) fl Immature Gran % (Auto) 0.4 (0-0.5) % Neut % (Auto) 46.3 (45.5-73.1) % Lymph % (Auto) 36.8 (18.3-44.2) % [place] % (Auto) 12.0 H (2.6-8.5) % Eos % (Auto) 3.7 (0-4.4) % Baso % (Auto) 0.8 (0.2-1.2) % Lymph # (Auto) 2.89 (0.9-3.2) K/mm3 [place] # (Auto) 0.9 H (0.1-0.6) K/mm3 Eos # (Auto) 0.3 (0-0.3) K/mm3 Baso # (Auto) 0.1 (0.0-0.1) K/mm3 Abs Immat Gran (auto) 0.03 (0.00-0.031) K/mm3 Absolute Neuts (auto) 3.7 (1.3-6.7) K/mm3 Absolute Nucleated RBC 0.000 (0.0-0.012) K/mm3 Nucleated RBC % 0.0 (0.0-0.2) % Sodium 137 (137-145) mmol/L Potassium 4.2 (3.4-5.0) mmol/L Chloride 104 (98-107) mmol/L Carbon Dioxide 23 (22-30) mmol/L Anion Gap 10 (4-12) mmol/L BUN 17 (9-20) mg/dL Creatinine 0.91 (0.7-1.3) mg/dL Estim Creat Clear Calc 50 ml/min Estimated GFR > 60 (59 - ) Glucose 121 H (65-110) mg/dL Calcium 9.1 (8.4-10.2) mg/dL Total Bilirubin 0.6 (0.2-1.3) mg/dL AST 20 (17-59) U/L ALT 13 (6-50) U/L Alkaline Phosphatase 52 (38-126) U/L Total Protein 7.0 (6.3-8.2) g/dL Albumin 3.8 (3.5-5.1) g/dL Urine Color Yellow (Yellow) Urine Appearance Cloudy H (Clear) Urine pH 8.0 (5.0-9.0) Ur Specific [place] 1.008 (1.001-1.035) Urine Protein Negative (Negative) mg/dL Urine Glucose (UA) Negative (Negative) mg/dL Urine Ketones Negative (Negative) mg/dL Ur Blood (Man) Negative (Negative) Urine Nitrate Negative (Negative) Urine Bilirubin Negative (Negative) Urine Urobilinogen 0.2 (<2.0) mg/dL Leukocyte Esterase Rfl 3+ H (Negative) NITIN/UL Urine RBC 0-2 (0-2) /hpf Urine WBC 21-50 H (0-3) /hpf Ur Squamous Epith Cells None seen (Few) /hpf Urine Bacteria Rare /hpf Urine Casts 0-2 Imaging Data Radiologist's impression: ITS Impressions Knee X-Ray 06/23/24 06:04 IMPRESSION: 1. Mild left knee osteoarthritis. 2. Small left knee joint effusion. Hip/Pelvis X-Ray 06/23/24 06:05 IMPRESSION: 1. Mild osteoarthritis of the hips. Head CT 06/23/24 06:18 IMPRESSION: 1. 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 ECG Data EKG #1: ECG completion date: 06/23/24 ECG completion time: 02:18 EKG Interpretation: normal rate (84), sinus rhythm, no ectopy, normal QRS, normal QT and NL axis Discharge Plan Discharge Clinical Impression: Abrasion of knee, Acute UTI Patient Disposition: Home, Self-Care Condition: Stable Instructions: Antibiotic Form, Urinary Tract Infection in Men (ED), Abrasion (ED) Additional Instructions: You should return to the emergency department if you develop severe nausea and vomiting and are unable to keep liquids down, if you develop severe back/flank or stomach pain, or if your symptoms are not clearly improving at home. Patient Language: Welsh Prescriptions: New cefuroxime axetil 500 mg tablet 500 mg PO BID Qty: 14 0RF Follow-up/Referrals: PHYSICIAN NOT ON STAFF,NONSTAFF [Primary Care Provider] - 1 Week
[2024-06-23] MEDS: SODIUM CHLORIDE 0.9% IV 1,000 ML 999 ML IV CONT (05:04)
[2024-06-23 05:13] VITALS: BP 129/89; BP 98/48; PULSE 85; PULSE 88
[2024-06-23 06:04] VITALS: BP 111/66; BP 116/68; PULSE 87; PULSE 88
[2024-06-23 06:06] VITALS: BP 99/70; PULSE 92
[2024-06-23 11:50] LABS: Estimated CRCL calculation 38 ml/min; Estimated Glomerular Filt Rate 57
== END 2024-06-23 07:13 ==
PROVIDERS: Emergency Provider Emergency Medicine
DX: S80.212A Abrasion, left knee, initial encounter (principal); N39.0 Urinary tract infection, site not specified; W19.XXXA Unspecified fall, initial encounter; Z86.718 Personal history of other venous thrombosis and embolism; Z79.01 Long term (current) use of anticoagulants; E78.5 Hyperlipidemia, unspecified
CPT/HCPCS: 36415; 70450; 73502; 73562; 80053; 81001; 85025; 87086; 93005; 96361; 96374; 99284; J7030

== ENCOUNTER 2024-06-23 11:04 | Emergency (ER) | payer OTHER, SELFPAY ==
--- NOTE | ~2024-06-23 | CT_ITS ---
EXAMINATION: CT brain wo con DATE: 06/23/2024 11:18 INDICATION: Cerebrovascular accident. TECHNIQUE: Computed tomography (CT) of the head was performed without intravenous contrast. The mA wa s adjusted according to patient size. Iterative reconstruction technique was employed. The dose-lengt h product was 681.00 mGy-cm. COMPARISON: Head CT 06/23/2024 FINDINGS: There are old infarcts in the right frontal, parietal, and occipital lobes, right basal dean glia, and anterior limb right internal capsule. There is no intracranial hemorrhage, acute infarction , or abnormal intracranial mass lesion. There are scattered areas of low attenuation in the cerebral white matter, which is within normal limits for the patient's age. There is ex vacuo dilatation of ri ght lateral ventricle. There are likely changes of ocular lens replacement surgeries. There is mild m ucosal thickening in the paranasal sinuses. The mastoid air cells are normal. IMPRESSION: 1. 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 Reviewed, dictated and finalized at location A. SHER HAND IMPRESSION: 1. 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
--- NOTE | ~2024-06-23 | CT_ITS ---
EXAMINATION: CTA brain carotid DATE: 06/23/2024 11:24 INDICATION: Cerebrovascular accident. TECHNIQUE: Computed tomographic angiography (CTA) of the head was performed with 100 mL Omnipaque-350 intravenous contrast. CTA of the neck was performed with intravenous contrast. Automated exposure co ntrol and iterative reconstruction technique were employed. The dose-length product was 1144.13 mGy-c m. Maximum intensity projection and volume rendered 3D-reconstructions were created by the [id number] st on a separate workstation. COMPARISON: Head CT 06/23/2024 FINDINGS: HEAD CTA: There are old infarcts in the right frontal, parietal, and occipital lobes, right basal dean glia, and anterior limb right internal capsule. There is no intracranial hemorrhage, acute infarction , or abnormal intracranial mass lesion. There are scattered areas of low attenuation in the cerebral white matter, which is within normal limits for the patient's age. There is ex vacuo dilatation of ri ght lateral ventricle. There are likely changes of ocular lens replacement surgeries. There is mild m ucosal thickening in the paranasal sinuses. The mastoid air cells are normal. Left vertebral artery is dominant. There is no significant stenosis of basilar artery or the posterior cerebral arteries. The posterior communicating arteries are normal. Left internal carotid artery is smaller than the rig ht. There is mild stenosis of the intracranial internal carotid arteries. There is no significant franco nosis of the anterior or middle cerebral arteries. Anterior communicating artery is normal. There is no aneurysm. NECK CTA: There is a 12 mm nodule in right lung upper lobe. There are no pathologically enlarged lymp h nodes. There is no significant stenosis of the vertebral arteries. There is severe stenosis of left common carotid artery. There is plaque in the proximal internal carotid arteries. There is 63% steno sis of the proximal right internal carotid artery relative to normal distal artery lumen diameter (NA SCET criteria). Left cervical internal carotid artery is small, consistent with proximal near-occlusi on stenosis. There is mild cervical spondylosis. IMPRESSION: 1. 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 2. 63% stenosis of the proximal right internal carotid artery relative to normal distal artery lumen diameter (NASCET criteria). 3. Severe stenosis of left common carotid artery and near-occlusion stenosis of proximal left interna l carotid artery. 4. 12 mm nodule in right lung upper lobe suspicious for primary bronchogenic carcinoma. Noncontrast l ow-dose chest CT is recommended in 3 months. Reviewed, dictated and finalized at location A. MING COACH IMPRESSION: 1. 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 2. 63% stenosis of the proximal right internal carotid artery relative to norm al distal artery lumen diameter (NASCET criteria). 3. Severe stenosis of left common carotid artery and near-occlusion stenosis of proximal left internal carotid artery. 4. 12 mm nodule in right lung upper lobe suspicious for primary bronchogenic ca rcinoma. Noncontrast low-dose chest CT is recommended in 3 months.
--- NOTE | 2024-06-23 11:04 | ECG_ITS ---
Test Date: 2024-06-23 11:30:15 Measurements Intervals [place] Rate: 66 P: 0 TX: 0 QRS: 16 QRSD: 82 T: 28 QT: 379 QTc: 398 Interpretive Statements ATRIAL FIBRILLATION NONSPECIFIC ST & T-WAVE ABNORMALITY- DIFFUSE LEADS BASELINE ARTIFACT- I, II, AVR, AVF, V3-V6 ABNORMAL ECG Compared to ECG 06/23/2024 02:18:58 ST-T wave abnormality now present Sinus rhythm no longer present Electronically Signed On 06-23-2024 18:16:40 DIESEL TECHNICIAN by Lisandro Hutchins D.O.
--- NOTE | 2024-06-23 11:06 | PC.NURSE ---
pt taken to CT by EMS
--- NOTE | 2024-06-23 11:11 | ED.NEUROSD ---
HPI - Neuro Symptoms/Deficit General Chief Complaint: Suspected CVA Stated Complaint: cva Time Seen by Provider: 06/23/24 11:11 Source: family and EMS Mode of arrival: EMS Limitations: clinical condition History of Present Illness HPI Narrative: 84 years old white male came by ambulance from supporting living facility with stroke-like symptoms. Patient last time was seen using his walker in walking around at 8:30 a.m., family came to visit him at 9:30 a.m. found patient lethargic, slurred speech, unable to move his left upper extremity or stand. Patient is full code, history of AFib on aspirin and Plavix, hypertension, hyperlipidemia. Patient is not on anticoagulant medication. Related Data Home Medications ?Medication ?Instructions ?Recorded ?Confirmed ?Last Taken ?Type aspirin 81 mg tablet,delayed 81 mg PO DAILY 06/23/24 06/23/24 Unknown History release (Adult Low Dose Aspirin) clopidogrel 75 mg tablet 75 mg PO DAILY 06/23/24 06/23/24 Unknown History finasteride 5 mg tablet 5 mg PO DAILY 06/23/24 06/23/24 Unknown History lisinopril 10 mg tablet 10 mg PO DAILY 06/23/24 06/23/24 Unknown History simvastatin 40 mg tablet 20 mg PO DAILY 06/23/24 06/23/24 Unknown History tamsulosin 0.4 mg capsule (Flomax) 0.4 mg PO DAILY 06/23/24 06/23/24 Unknown History Allergies Allergy/AdvReac Type Severity Reaction Status Date / Time No Known Allergies Allergy Verified 06/23/24 11:47 Review of Systems Review of Systems: ROS unobtainable: Yes unobtainable due to medical condition PMFSH Past Medical History Medical History Hyperlipidemia BPH (benign prostatic hyperplasia) DVT (deep venous thrombosis) Exam Narrative: General appearance: Well-developed, well-nourished, lethargy, slurred speech, following questions Skin: Normal color Head: Normocephalic, nontraumatic Eyes: Clear conjunctiva ENT: Oropharynx normal, ears normal, nose normal Neck: Supple, nontender Chest and respiratory: Airway patent, no respiratory distress, no accessory muscle use Heart: Irregular heartbeat Abdomen: Soft, nontender, no organomegaly, quiet bowel sounds Vascular: Normal peripheral pulses, normal capillary refill. Musculoskeletal: Neurologic: Alert, no motor activity left upper extremity and lower extremities Course Consultations Consultation #1: Dr. Pisano, neurologist at [facility] accepted patient transfer, agreed with the plan Consultation #2: Dr. Gatica ED of [facility] who accepted patient transfer Date: 06/23/24 Vital Signs Vital signs: Vital Signs Temperature 36.5 C 06/23/24 11:25 Pulse Rate 72 06/23/24 11:25 Respiratory Rate 20 06/23/24 11:25 Blood Pressure 69/48 L 06/23/24 11:25 Pulse Oximetry 95 06/23/24 11:25 Temperature 36.5 C 06/23/24 11:25 Pulse Rate 66 06/23/24 11:50 Respiratory Rate 30 H 06/23/24 11:50 Blood Pressure 91/45 L 06/23/24 11:50 Pulse Oximetry 97 06/23/24 11:50 MDM - Neuro Symptoms/Deficit MDM Narrative Medical decision making narrative: Patient presents with stroke-like symptoms Family members including his son and daughter in low and aware of the patient medical history or his medications, The supportive living facility telling me that patient takes his own medications without their support. And and aware of his list of medications. The some brought a bag of medicine, after my evaluation I found that patient on blood pressure medicine, hyperlipidemia, aspirin and Plavix, vitamins. Patient came to our emergency room early today and was discharged with diagnosis of urinary tract infection. The sinus telling me that patient is full code The son agreed to start patient on tPA in spite of the possibility of intracranial bleed and Vital signs showing blood pressure 69/48, 1 L of normal saline started improved in few minutes up to 91/45 otherwise insignificant Physical examination showing a lethargic patient, slurred speech, have no teeth or denture, difficult to understand but he does follow verbal commands 0/5 motor deficiency of the left upper extremity and lower extremities Differential diagnosis include acute CVA, sepsis, hypoglycemia Stroke scale is 15 TPA started Transferred to [facility] discussed with the neurologist Dr. Pisano and the ED physician Dr. gatica Differential Diagnosis Differential diagnosis: Likely other (As above) Medical Records Attestation: I reviewed the patient's medical records. Lab Data 06/23/24 11:13 06/23/24 11:13 Labs: Lab Results 02/01/25 Range/Units 11:13 WBC 12.5 H (4.5-10.0) K/mm3 RBC 4.49 L (4.6-6.20) M/mm3 Hgb 13.4 L (14.0-18.0) g/dL Hct 40.0 L (42.0-52.0) % MCV 89.1 (80-100) fl MCH 29.8 (26-34) pg MCHC 33.5 (32-36) g/dl RDW 11.6 (11.5-14.5) % Plt Count 239 (150-375) k/mm3 MPV 9.1 (7.4-10.4) fl Immature Gran % (Auto) 0.5 (0-0.5) % Neut % (Auto) 88.9 H (45.5-73.1) % Lymph % (Auto) 5.9 L (18.3-44.2) % [place] % (Auto) 4.3 (2.6-8.5) % Eos % (Auto) 0.2 (0-4.4) % Baso % (Auto) 0.2 (0.2-1.2) % Lymph # (Auto) 0.74 L (0.9-3.2) K/mm3 [place] # (Auto) 0.5 (0.1-0.6) K/mm3 Eos # (Auto) 0.0 (0-0.3) K/mm3 Baso # (Auto) 0.0 (0.0-0.1) K/mm3 Abs Immat Gran (auto) 0.06 H (0.00-0.031) K/mm3 Absolute Neuts (auto) 11.2 H (1.3-6.7) K/mm3 Absolute Nucleated RBC 0.000 (0.0-0.012) K/mm3 Nucleated RBC % 0.0 (0.0-0.2) % PT 14.4 (11.1-14.7) Seconds INR 1.1 APTT 30.5 (22.3-36.8) Seconds Sodium 139 (137-145) mmol/L Potassium 3.9 (3.4-5.0) mmol/L Chloride 106 (98-107) mmol/L Carbon Dioxide 23 (22-30) mmol/L Anion Gap 10 (4-12) mmol/L BUN 15 (9-20) mg/dL Creatinine 0.99 (0.7-1.3) mg/dL Estim Creat Clear Calc 46 ml/min Estimated GFR > 60 (59 - ) Glucose 123 H (65-110) mg/dL Calcium 9.3 (8.4-10.2) mg/dL Total Bilirubin 0.9 (0.2-1.3) mg/dL AST 25 (17-59) U/L ALT 14 (6-50) U/L Alkaline Phosphatase 57 (38-126) U/L Troponin I < 0.012 (0.000-0.034) ng/mL Total Protein 7.0 (6.3-8.2) g/dL Albumin 3.7 (3.5-5.1) g/dL Imaging Data Radiologist's impression: Impressions Head CT 06/23/24 11:21 IMPRESSION: 1. 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 Head/Neck CTA 06/23/24 11:27 IMPRESSION: 1. 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 2. 63% stenosis of the proximal right internal carotid artery relative to normal distal artery lumen diameter (NASCET criteria). 3. Severe stenosis of left common carotid artery and near-occlusion stenosis of proximal left internal carotid artery. 4. 12 mm nodule in right lung upper lobe suspicious for primary bronchogenic carcinoma. Noncontrast low-dose chest CT is recommended in 3 months. ECG Data EKG #1: Attestation: I personally reviewed and interpreted this ECG as follows: ECG completion date: 06/23/24 Interpretation: AFib with normal ventricular response at 6 6 beats per minute, nonspecific ST T-wave abnormality Critical Care Time Critical Care Time Critical Care Time: Yes Total Critical Care Time: 30 Discharge Plan Discharge Clinical Impression: Acute cerebrovascular accident (CVA) Patient Disposition: Acute Care Hospital Condition: Guarded Prognosis Additional Instructions: Transferred to [facility] Patient Language: British Prescriptions: No Action cefuroxime axetil 500 mg tablet 500 mg PO BID Qty: 14 0RF finasteride 5 mg tablet 5 mg PO DAILY aspirin [Adult Low Dose Aspirin] 81 mg tablet,delayed release (DR/EC) 81 mg PO DAILY tamsulosin [Flomax] 0.4 mg capsule 0.4 mg PO DAILY lisinopril 10 mg tablet 10 mg PO DAILY simvastatin 40 mg tablet 20 mg PO DAILY clopidogrel 75 mg tablet 75 mg PO DAILY Follow-up/Referrals: PHYSICIAN NOT ON STAFF,NONSTAFF [Primary Care Provider] - Quality Stroke Date of last known normal: 06/23/24 Stroke Scale Stroke Scale 1: Stroke scale date:: 06/23/24 1a Level of consciousness: alert-0 1b Level of consciousness questions: answers both correctly-0 1c Level of consciousness commands: obeys both correctly-0 2 Best gaze: normal-0 3 Visual: no visual loss-0 4 Facial palsy: minor paralysis-1 5a Motor: left arm: no effort/gravity-3 5b Motor: right arm: no drift-0 6a Motor: left leg: no effort/gravity-3 6b Motor: right leg: no effort/gravity-3 7 Limb ataxia: present in two limbs-2 8 Sensory: pinprick less sharp-1 9 Best language: some loss of fluency-1 10 Dysarthria: slurs some words-1 11 Extinction and inattention: no abnormality-0 Level:: 15
[2024-06-23 11:18] LABS: Basophils Percent Auto 0.2 % (0.2-1.2); Eosinophils Percent Auto 0.2 % (0-4.4); Hemoglobin 13.4 g/dL (14.0-18.0); Immature Granulocyte Absolute 0.06 K/mm3 (0.00-0.031); Immature Granulocyte Percent A 0.5 % (0-0.5); Lymphocytes Absolute Auto 0.74 K/mm3 (0.9-3.2); Lymphocytes Percent Auto 5.9 % (18.3-44.2); Mean Corpuscular HGB Conc 33.5 g/dl (32-36); Mean Corpuscular Hemoglobin 29.8 pg (26-34); Mean Corpuscular Volume 89.1 fl (80-100); Mean Platelet Volume 9.1 fl (7.4-10.4); Monocytes Absolute Auto 0.5 K/mm3 (0.1-0.6); Monocytes Percent Auto 4.3 % (2.6-8.5); Neutrophils Absolute Auto 11.2 K/mm3 (1.3-6.7); Neutrophils Percent Auto 88.9 % (45.5-73.1); Platelet Count Result 239 k/mm3 (150-375); Red Blood Count 4.49 M/mm3 (4.6-6.20); Red Cell Distribution Width 11.6 % (11.5-14.5); White Blood Count 12.5 K/mm3 (4.5-10.0)
[2024-06-23 11:25] VITALS: BP 69/48; PULSE 72; RESP 20; TEMP 36.5; O2SAT 95
[2024-06-23 11:30] LABS: INR 1.1; Prothrombin Time 14.4 Seconds (11.1-14.7)
--- OUTSIDE RECORDS SUMMARY | 2024-06-23 11:30 | XMS_ITS | Continuity of Care Document ---
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 It does not include entries that were removed or entered in error. Problem Status Onset Date Problem Type Date of Resolution Comments Source Benign localized hyperplasia of prostate Active Condition [facility] BPH - benign prostatic hyperplasia Active Condition [facility] Cerebral infarction Active Condition [facility] History of cerebrovascular accident Active Condition [facility] History of surgery Active Condition J 2016 Entered By: SIMONA GRAVES Comment: none [facility] History of tobacco use Active Condition [facility] HLD - Hyperlipidemia Active Condition [facility] HTN - Hypertension Active Condition [facility] Hyperlipidemia Active Condition [facility] Hypertension Active Condition [facility] Osteoarthritis Active Condition [facility] Diabetes mellitus type 2 Inactive Condition 03/26/2021 [facility] Diagnosis: ICD-10-CM E78.5 Hyperlipidemia, unspecified Active Diagnosis [facility] Diagnosis: ICD-10-CM Z71.89 Other specified counseling Active Diagnosis [facility] Diagnosis: ICD-10-CM Y93.E6 Activity, residential relocation Active Diagnosis [facility] Diagnosis: ICD-10-CM Z48.810 Encntr for surgical aftcr [...] A DAY ORAL ACTIVE NANDA SCHNEIDER 2024 [facility] ASPIRIN 81MG TAB,EC TAKE ONE TABLET BY MOUTH ONCE DAILY ORAL ACTIVE Bettina POWELL A 2022 [facility] CARBOXYMETH YLCELLULOSE NA 0.5% SOLN,OPH INSTILL 1 DROP IN EACH EYE FOUR TIMES DAILY OPHTHA LMIC ACTIVE 10/06/2024 [id number] YVES RETANA EN A 2023 15 [facility] CHOLECALCIF ASH 25MCG (1,000UNIT) TAB TAKE ONE TABLET BY MOUTH ONCE A DAY FOR VITAMIN D DEFICIEN CY ORAL ACTIVE 06/09/2025 [id number] 5 JENNIE, NANDA 2024 100 [facility] CHOLECALCIF ASH 25MCG (1,000UNIT) TAB TAKE THREE TABLETS BY MOUTH ONCE DAILY ORAL ACTIVE 10/20/2024 [id number] 4 Bettina POWELL A 2023 300 [facility] CHOLECALCIF ASH 25MCG (1,000UNIT) TAB TAKE THREE TABLETS BY MOUTH ONCE DAILY ORAL DISCONT INUED 11/23/2023 [id number] 4 Bettina POWELL A 2022 300 [facility] CIPROFLOXAC IN HCL 500MG TAB TAKE ONE TABLET BY MOUTH TWICE A DAY - ANTIBIOT IC - TAKE UNTIL GONE *TAKE WITH FOOD AND AVOID TAKING WITH DAIRY OR PRODUCTS CONTAINI NG ALUMINUM , IRON, CALCIUM, OR MAGNESIU M* ORAL 01/04/2024 [id number] 4 Bettina POWELL A 2023 20 [facility] CLOPIDOGREL BISULFATE 75MG TAB TAKE ONE TABLET BY MOUTH ONCE A DAY ORAL ACTIVE 06/09/2025 [id number] 5 MCQUAIDE, NANDA 2024 90 [facility] CLOPIDOGREL BISULFATE 75MG TAB TAKE ONE TABLET BY MOUTH ONCE DAILY ORAL ACTIVE 10/20/2024 [id number] 5 Bettina POWELLNE A 2023 90 [facility] CLOPIDOGREL BISULFATE 75MG TAB TAKE ONE TABLET BY MOUTH ONCE DAILY TO THIN BLOOD ORAL DISCONT INUED 10/21/2023 [id number] 4 Bettina POWELL A 2022 90 [facility] CYANOCOBALA MIN 500MCG TAB TAKE TWO TABLETS BY MOUTH ONCE DAILY WITH FOOD ORAL ACTIVE 10/20/2024 [id number] 4 Bettina POWELL A 2023 200 [facility] CYANOCOBALA MIN 500MCG TAB TAKE ONE TABLET BY MOUTH ONCE A DAY ORAL SUSPEND ED 06/09/2025 [id number] 5 JENNIE NANDA 2024 100 [facility] CYANOCOBALA MIN 500MCG TAB TAKE TWO TABLETS BY MOUTH ONCE DAILY WITH FOOD ORAL DISCONT INUED 11/23/2023 [id number] 4 Bettina POWELL A 2022 200 [facility] FINASTERIDE 5MG TAB TAKE ONE TABLET BY MOUTH ONCE DAILY FOR THE PROSTATE ORAL SUSPEND ED 04/20/2025 [id number] 5 Bettina POWELLNINE A 2023 90 [facility] FINASTERIDE 5MG TAB TAKE ONE TABLET BY MOUTH ONCE A DAY SWALLOW WHOLE, DO NOT CRUSH, SPLIT, OR CHEW. ORAL SUSPEND ED 06/09/2025 [id number] 5 MCQUAIDE, NANDA 2024 90 [facility] FINASTERIDE 5MG TAB TAKE ONE TABLET BY MOUTH ONCE DAILY FOR THE PROSTATE ORAL DISCONT INUED 04/12/2024 [id number] 4 Bettina POWELLNIARELIS A 2022 90 [facility] FOLIC ACID 1MG TAB TAKE ONE TABLET BY MOUTH ONCE DAILY FOR FOLATE DEFICIEN CY WITH FOOD ORAL ACTIVE 09/26/2024 [id number] 5 Bettina PALMA 2023 90 [facility] FOLIC ACID 1MG TAB TAKE ONE TABLET BY MOUTH ONCE A DAY ORAL SUSPEND ED 06/09/2025 [id number] 5 NANDA SCHNEIDER 2024 100 [facility] FOLIC ACID 1MG TAB TAKE ONE TABLET BY MOUTH ONCE DAILY WITH FOOD ORAL DISCONT INUED 11/23/2023 [id number] 4 Bettina POWELL 2022 90 [facility] LISINOPRIL 10MG TAB TAKE ONE TABLET BY MOUTH EVERY MORNING FOR BLOOD PRESSURE ORAL 06/10/2024 [id number] KAMERON LIU 2023 90 [facility] LISINOPRIL 20MG TAB TAKE ONE-HALF TABLET BY MOUTH ONCE A DAY ORAL ACTIVE 06/09/2025 [id number] 5 NANDA SCHNEIDER 2024 45 [facility] MULTIVITAMI NS CAP/TAB TAKE 1 TABLET BY MOUTH ONCE A DAY FOR NUTRITIO N/DIETAR Y SUPPLEME NTATION ORAL ACTIVE 06/09/2025 [id number] 5 NANDA SCHNEIDER 2024 100 [facility] MULTIVITS W/MINERALS TAB/CAP (NO VIT K) TAKE 1 TABLET BY MOUTH ONCE DAILY ORAL ACTIVE 10/20/2024 [id number] 5 Bettina POWELL 2023 100 [facility] MULTIVITS W/MINERALS TAB/CAP (NO VIT K) TAKE 1 TABLET BY MOUTH ONCE DAILY ORAL DISCONT INUED 11/23/2023 [id number] 4 Bettina POWELL 2022 100 [facility] SENNOSIDES 8.6MG TAB TAKE ONE TABLET BY MOUTH ONCE DAILY NEEDED FOR CONSTIPA TION ORAL ACTIVE 10/20/2024 [id number] 4 Bettina POWELL 2023 100 [facility] SIMVASTATIN 40MG TAB TAKE ONE-HALF TABLET BY MOUTH EVERY EVENING ORAL ACTIVE 06/09/2025 [id number] 5 NANDA SCHNEIDER 2024 45 [facility] SIMVASTATIN 40MG TAB TAKE ONE-HALF TABLET BY MOUTH AT BEDTIME FOR CHOLESTE ROL - DO NOT TAKE WITH GRAPEFRU IT JUICE ORAL 05/09/2024 [id number] 4 Bettina POWELL A 2023 45 [facility] TAMSULOSIN HCL 0.4MG CAP TAKE ONE CAPSULE BY MOUTH ONCE DAILY FOR PROSTATE 30 MINUTES AFTER A MEAL (MAY CAUSE LIGHTHEA DEDNESS WHEN STANDING ) ORAL ACTIVE 10/20/2024 [id number] 4 Bettina POWELL A 2023 90 [facility] TAMSULOSIN HCL 0.4MG CAP TAKE ONE CAPSULE BY MOUTH EVERY EVENING APPROXIM ATELY 30 MINUTES AFTER THE SAME MEAL EACH DAY ORAL SUSPEND ED 06/09/2025 [id number] 5 NANDA SCHNEIDER 2024 90 [facility] TAMSULOSIN HCL 0.4MG CAP TAKE ONE CAPSULE BY MOUTH ONCE DAILY 30 MINUTES AFTER A MEAL FOR PROSTATE (MAY CAUSE LIGHTHEA DEDNESS WHEN STANDING ) ORAL DISCONT INUED (EDIT) 06/15/2024 [id number] 4 EDUARDO LOVE [facility] 2023 30 [facility] TAMSULOSIN HCL 0.4MG CAP TAKE ONE CAPSULE BY MOUTH ONCE DAILY 30 MINUTES AFTER A MEAL FOR PROSTATE (MAY CAUSE LIGHTHEA DEDNESS WHEN STANDING ) ORAL 06/09/2023 [id number] 3 Bettina POWELL A 2022 30 [facility] Immunizations Combined list of available immunizations from the Department of Defense and Veterans Affairs facilities. 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 Comments Source COVID-19 (MODERNA), MRNA, LNP-S, PF, 100 MCG OR 50 MCG DOSE 3 2020 207 complet ed MOD; [id number]; 2 [facility] INFLUENZA, UNSPECIFIED FORMULATION 2020 88 complet ed [facility] COVID-19 (MODERNA), MRNA, LNP-S, PF, 100 MCG/0.5 ML DOSE 2 2020 207 complet ed MOD; [id number]; 1 [facility] COVID-19 (MODERNA), MRNA, LNP-S, PF, 100 MCG/0.5 ML DOSE 1 2020 207 complet ed MOD; [id number]; 1 [facility] INFLUENZA, HIGH-DOSE, TRIVALENT, PF 1 2013 135 complet ed [id number] Results Combined list of recent chemistry, hematology and other laboratory results from Department of Defense and Veterans Affairs, ranging from 15 months to all on record, depending upon the facility. Order Name Results Value Reference Range Date Interpretation Specimen Comments Source B12 COBALAMIN (VITAMIN B12) [MASS/VOLUM E] IN SERUM OR PLASMA 1214 pg/mL 213 - 816 06/08 H Specimen Type: SERUM No comment entered. Ordering Provider: Elicia SCHNEIDER Report Released Date/Time: Jun 08, 2024 07:39 AM Reporting Lab: [facility] [id number] Performing Lab: [facility] [id number] [place] [address] DIVISION CBC LEUKOCYTES [#/VOLUME] IN BLOOD BY AUTOMATED COUNT 9.1 10*3/uL 3.6 - 11.2 06/08 Specimen Type: BLOOD No comment entered. Ordering Provider: Elicia SCHNEIDER Report Released Date/Time: Jun 08, 2024 07:39 AM Reporting Lab: [facility] [id number] Performing Lab: [facility] [id number] [place] [address] DIVISION CBC ERYTHROCYTE S [#/VOLUME] IN BLOOD BY AUTOMATED COUNT 4.54 10*6/uL 4.10 - 5.70 06/08 Specimen Type: BLOOD No comment entered. Ordering Provider: Elicia SCHNEIDER Report Released Date/Time: Jun 08, 2024 07:39 AM Reporting Lab: [facility] [place] [address] Performing Lab: [facility] DIVISION CBC HEMOGLOBIN [MASS/VOLUM E] IN BLOOD 13.6 g/dL 13.1 - 16.8 06/08 Specimen Type: BLOOD No comment entered. Ordering Provider: Elicia SCHNEIDER Report Released Date/Time: Jun 08, 2024 07:39 AM Reporting Lab: [facility] [place] [address] Performing Lab: [facility] CBC HEMATOCRIT [VOLUME FRACTION] OF BLOOD 39.4 38.2 - 48.4 06/08 Specimen Type: BLOOD No comment entered. Ordering Provider: Elicia SCHNEIDER Report Released Date/Time: Jun 08, 2024 07:39 AM Reporting Lab: [facility] [place] [address] Performing Lab: [facility] DIVISION CBC MCV [ENTITIC VOLUME] BY AUTOMATED COUNT 86.8 fL 80.0 - 100.0 06/08 Specimen Type: BLOOD No comment entered. Ordering Provider: Elicia SCHNEIDER Report Released Date/Time: Jun 08, 2024 07:39 AM Reporting Lab: [facility] [place] [address] Performing Lab: [facility] CBC MCH [ENTITIC MASS] BY AUTOMATED COUNT 30.0 pg 27.0 - 34.0 06/08 Specimen Type: BLOOD No comment entered. Ordering Provider: Elicia SCHNEIDER Report Released Date/Time: Jun 08, 2024 07:39 AM Reporting Lab: [facility] [place] [address] Performing Lab: [facility] DIVISION CBC MCHC [MASS/VOLUM E] BY AUTOMATED COUNT 34.5 g/dL 33.0 - 36.0 06/08 Specimen Type: BLOOD No comment entered. Ordering Provider: Elicia SCHNEIDER Report Released Date/Time: Jun 08, 2024 07:39 AM Reporting Lab: [facility] [place] [address] Performing Lab: [facility] CBC PLATELETS [#/VOLUME] IN BLOOD BY AUTOMATED COUNT 271 10*3/uL 150 - 400 06/08 Specimen Type: BLOOD No comment entered. Ordering Provider: Elicia SCHNEIDER Report Released Date/Time: Jun 08, 2024 07:39 AM Reporting Lab: [facility] [place] [address] Performing Lab: [facility] DIVISION CBC PLATELET MEAN VOLUME [ENTITIC VOLUME] IN BLOOD BY AUTOMATED COUNT 9.1 fL 7.5 - 11.2 06/08 Specimen Type: BLOOD No comment entered. Ordering Provider: Elicia SCHNEIDER Report Released Date/Time: Jun 08, 2024 07:39 AM Reporting Lab: [facility] [place] [address] Performing Lab: [facility] DIVISION CBC ERYTHROCYTE DISTRIBUTIO N WIDTH [RATIO] BY AUTOMATED COUNT 11.6 11.8 - 15.1 06/08 L Specimen Type: BLOOD No comment entered. Ordering Provider: Elicia SCHNEIDER Report Released Date/Time: Jun 08, 2024 07:39 AM Reporting Lab: [facility] [place] [address] Performing Lab: [facility] DIVISION CBC LYMPHOCYTES /100 LEUKOCYTES IN BLOOD BY AUTOMATED COUNT 35 06/08 Specimen Type: BLOOD No comment entered. Ordering Provider: Elicia SCHNEIDER Report Released Date/Time: Jun 08, 2024 07:39 AM Reporting Lab: [facility] [place] [address] Performing Lab: [facility] DIVISION CBC MONOCYTES/1 00 LEUKOCYTES IN BLOOD BY AUTOMATED COUNT 9 06/08 Specimen Type: BLOOD No comment entered. Ordering Provider: Elicia SCHNEIDER Report Released Date/Time: Jun 08, 2024 07:39 AM Reporting Lab: [facility] [place] [address] Performing Lab: [facility] DIVISION CBC NEUTROPHILS /100 LEUKOCYTES IN BLOOD BY AUTOMATED COUNT 54 06/08 Specimen Type: BLOOD No comment entered. Ordering Provider: Elicia SCHNEIDER Report Released Date/Time: Jun 08, 2024 07:39 AM Reporting Lab: [facility] [place] [address] Performing Lab: [facility] DIVISION CBC EOSINOPHILS /100 LEUKOCYTES IN BLOOD BY AUTOMATED COUNT 1 06/08 Specimen Type: BLOOD No comment entered. Ordering Provider: Elicia SCHNEIDER Report Released Date/Time: Jun 08, 2024 07:39 AM Reporting Lab: [facility] [place] [address] Performing Lab: [facility] DIVISION CBC BASOPHILS/1 00 LEUKOCYTES IN BLOOD BY AUTOMATED COUNT 1 06/08 Specimen Type: BLOOD No comment entered. Ordering Provider: Elicia SCHNEIDER Report Released Date/Time: Jun 08, 2024 07:39 AM Reporting Lab: [facility] [place] [address] Performing Lab: [facility] DIVISION CBC LYMPHOCYTES [#/VOLUME] IN BLOOD BY AUTOMATED COUNT 3.15 10*3/uL 0.77 - 4.50 06/08 Specimen Type: BLOOD No comment entered. Ordering Provider: Elicia SCHNEIDER Report Released Date/Time: Jun 08, 2024 07:39 AM Reporting Lab: [facility] [place] [address] Performing Lab: [facility] DIVISION CBC MONOCYTES [#/VOLUME] IN BLOOD BY AUTOMATED COUNT 0.85 10*3/uL 0.19 - 0.80 06/08 H Specimen Type: BLOOD No comment entered. Ordering Provider: Elicia SCHNEIDER Report Released Date/Time: Jun 08, 2024 07:39 AM Reporting Lab: [facility] [place] [address] Performing Lab: [facility] DIVISION CBC NEUTROPHILS [#/VOLUME] IN BLOOD BY AUTOMATED COUNT 4.93 10*3/uL 2.10 - 8.00 06/08 Specimen Type: BLOOD No comment entered. Ordering Provider: Elicia SCHNEIDER Report Released Date/Time: Jun 08, 2024 07:39 AM Reporting Lab: [facility] [place] [address] Performing Lab: [facility] DIVISION CBC EOSINOPHILS [#/VOLUME] IN BLOOD BY AUTOMATED COUNT 0.11 10*3/uL 0.00 - 0.60 06/08 Specimen Type: BLOOD No comment entered. Ordering Provider: Elicia SCHNEIDER Report Released Date/Time: Jun 08, 2024 07:39 AM Reporting Lab: [facility] [place] [address] Performing Lab: [facility] DIVISION CBC BASOPHILS [#/VOLUME] IN BLOOD BY AUTOMATED COUNT 0.06 10*3/uL 0.00 - 0.20 06/08 Specimen Type: BLOOD No comment entered. Ordering Provider: Elicia SCHNEIDER Report Released Date/Time: Jun 08, 2024 07:39 AM Reporting Lab: [facility] [place] [address] Performing Lab: [facility] DIVISION COMPREHEN SIVE METABOLIC PANEL CREATININE [MASS/VOLUM E] IN SERUM OR PLASMA 0.91 mg/dL 0.70 - 1.30 06/08 Specimen Type: PLASMA Comment: No hemolysis noted. Ordering Provider: Elicia SCHNEIDER Report Released Date/Time: Jun 08, 2024 07:39 AM Reporting Lab: [facility] [place] [address] Performing Lab: [facility] DIVISION COMPREHEN SIVE METABOLIC PANEL UREA NITROGEN [MASS/VOLUM E] IN SERUM OR PLASMA 16.5 mg/dL 9.0 - 25.0 06/08 Specimen Type: PLASMA Comment: No hemolysis noted. Ordering Provider: Elicia SCHNEIDER Report Released Date/Time: Jun 08, 2024 07:39 AM Reporting Lab: [facility] [place] [address] Performing Lab: [facility] DIVISION COMPREHEN SIVE METABOLIC PANEL GLUCOSE [MASS/VOLUM E] IN SERUM OR PLASMA 97 mg/dL 72 - 99 06/08 Specimen Type: PLASMA Comment: No hemolysis noted. Ordering Provider: Elicia SCHNEIDER Report Released Date/Time: Jun 08, 2024 07:39 AM Reporting Lab: [facility] [place] [address] Performing Lab: [facility] DIVISION COMPREHEN SIVE METABOLIC PANEL SODIUM [MOLES/VOLU ME] IN SERUM OR PLASMA 139 meq/L 136 - 145 06/08 Specimen Type: PLASMA Comment: No hemolysis noted. Ordering Provider: Elicia SCHNEIDER Report Released Date/Time: Jun 08, 2024 07:39 AM Reporting Lab: [facility] [place] [address] Performing Lab: [facility] DIVISION COMPREHEN SIVE METABOLIC PANEL POTASSIUM [MOLES/VOLU ME] IN SERUM OR PLASMA 4.0 meq/L 3.5 - 5.0 06/08 Specimen Type: PLASMA Comment: No hemolysis noted. Ordering Provider: Elicia SCHNEIDER Report Released Date/Time: Jun 08, 2024 07:39 AM Reporting Lab: [facility] [place] [address] Performing Lab: [facility] [place] [id number] DIVISION COMPREHEN SIVE METABOLIC PANEL CHLORIDE [MOLES/VOLU ME] IN SERUM OR PLASMA 106 meq/L 98 - 107 06/08 Specimen Type: PLASMA Comment: No hemolysis noted. Ordering Provider: Elicia SCHNEIDER Report Released Date/Time: Jun 08, 2024 07:39 AM Reporting Lab: [facility] [place] [address] Performing Lab: [facility] DIVISION COMPREHEN SIVE METABOLIC PANEL CARBON DIOXIDE, TOTAL [MOLES/VOLU ME] IN SERUM OR PLASMA 23 meq/L 22 - 31 06/08 Specimen Type: PLASMA Comment: No hemolysis noted. Ordering Provider: Elicia SCHNEIDER Report Released Date/Time: Jun 08, 2024 07:39 AM Reporting Lab: [facility] [place] [address] Performing Lab: [facility] DIVISION COMPREHEN SIVE METABOLIC PANEL CALCIUM [MASS/VOLUM E] IN SERUM OR PLASMA 10.1 mg/dL 8.4 - 10.4 06/08 Specimen Type: PLASMA Comment: No hemolysis noted. Ordering Provider: lEicia SCHNEIDER Report Released Date/Time: Jun 08, 2024 07:39 AM Reporting Lab: [facility] [place] [address] Performing Lab: [facility] DIVISION COMPREHEN SIVE METABOLIC PANEL PROTEIN [MASS/VOLUM E] IN SERUM OR PLASMA 7.6 g/dL 6.0 - 8.6 06/08 Specimen Type: PLASMA Comment: No hemolysis noted. Ordering Provider: Elicia SCHNEIDER Report Released Date/Time: Jun 08, 2024 07:39 AM Reporting Lab: [facility] [place] [address] Performing Lab: [facility] DIVISION COMPREHEN SIVE METABOLIC PANEL ALBUMIN [MASS/VOLUM E] IN SERUM OR PLASMA 4.0 g/dL 3.4 - 5.0 06/08 Specimen Type: PLASMA Comment: No hemolysis noted. Ordering Provider: Elicia SCHNEIDER Report Released Date/Time: Jun 08, 2024 07:39 AM Reporting Lab: [facility] [place] [address] Performing Lab: [facility] DIVISION COMPREHEN SIVE METABOLIC PANEL BILIRUBIN.T OTAL [MASS/VOLUM E] IN SERUM OR PLASMA 0.5 mg/dL 0.2 - 1.2 06/08 Specimen Type: PLASMA Comment: No hemolysis noted. Ordering Provider: Elicia SCHNEIDER Report Released Date/Time: Jun 08, 2024 07:39 AM Reporting Lab: [facility] [place] [address] Performing Lab: [facility] DIVISION COMPREHEN SIVE METABOLIC PANEL ALKALINE PHOSPHATASE [ENZYMATIC ACTIVITY/VO LUME] IN SERUM OR PLASMA 45 U/L 40 - 150 06/08 Specimen Type: PLASMA Comment: No hemolysis noted. Ordering Provider: Elicia SCHNEIDER Report Released Date/Time: Jun 08, 2024 07:39 AM Reporting Lab: [facility] [place] [address] Performing Lab: [facility] DIVISION COMPREHEN SIVE METABOLIC PANEL ASPARTATE AMINOTRANSF ERASE [ENZYMATIC ACTIVITY/VO LUME] IN SERUM OR PLASMA 26 U/L 5 - 34 06/08 Specimen Type: PLASMA Comment: No hemolysis noted. Ordering Provider: Elicia SCHNEIDER Report Released Date/Time: Jun 08, 2024 07:39 AM Reporting Lab: [facility] [place] [address] Performing Lab: [facility] DIVISION COMPREHEN SIVE METABOLIC PANEL ALANINE AMINOTRANSF ERASE [ENZYMATIC ACTIVITY/VO LUME] IN SERUM OR PLASMA 9 U/L 8 - 40 06/08 Specimen Type: PLASMA Comment: No hemolysis noted. Ordering Provider: Elicia SCHNEIDER Report Released Date/Time: Jun 08, 2024 07:39 AM Reporting Lab: [facility] [place] [address] Performing Lab: [facility] DIVISION COMPREHEN SIVE METABOLIC PANEL GLOMERULAR FILTRATION RATE/1.73 SQ M.PREDICTED [VOLUME RATE/AREA] IN SERUM, PLASMA OR BLOOD BY CREATININE- BASED FORMULA (CKD-EPI 2020) 82.08 60 06/08 Specimen Type: PLASMA Comment: No hemolysis noted. Ordering Provider: Elicia SCHNEIDER Report Released Date/Time: Jun 08, 2024 07:39 AM Reporting Lab: [facility] [place] [address] Performing Lab: [facility] DIVISION FOLATE (STL-MA) FOLATE [MASS/VOLUM E] IN SERUM OR PLASMA 38.6 ng/mL 7 - 20 06/08 H Specimen Type: SERUM No comment entered. Ordering Provider: Elicia SCHNEIDER Report Released Date/Time: Jun 08, 2024 01:32 PM Reporting Lab: [facility] [place] [address] Performing Lab: [facility] DIVISION HGA1C HEMOGLOBIN A1C/HEMOGLO BIN.TOTAL IN BLOOD 6.2 4.0 - 6.0 06/08 H Specimen Type: BLOOD No comment entered. Ordering Provider: Elicia SCHNEIDER Report Released Date/Time: Jun 08, 2024 07:39 AM Reporting Lab: [facility] [place] [address] Performing Lab: [facility] DIVISION LIPID PANEL (STL) CHOLESTEROL [MASS/VOLUM E] IN SERUM OR PLASMA 192 mg/dL 0 - 200 06/08 Specimen Type: PLASMA Comment: No hemolysis noted. Ordering Provider: Elicia SCHNEIDER Report Released Date/Time: Jun 08, 2024 07:39 AM Reporting Lab: [facility] [place] [address] Performing Lab: [facility] DIVISION LIPID PANEL (STL) TRIGLYCERID E [MASS/VOLUM E] IN SERUM OR PLASMA 104 mg/dL 0 - 150 06/08 Specimen Type: PLASMA Comment: No hemolysis noted. Ordering Provider: Elicia SCHNEIDER Report Released Date/Time: Jun 08, 2024 07:39 AM Reporting Lab: [facility] [place] [address] Performing Lab: [facility] LIPID PANEL (STL) CHOLESTEROL IN LDL [MASS/VOLUM E] IN SERUM OR PLASMA BY CALCULATION 115 mg/dL 06/08 Specimen Type: PLASMA Comment: No hemolysis noted. Ordering Provider: Elicia SCHNEIDER Report Released Date/Time: Jun 08, 2024 07:39 AM Reporting Lab: [facility] [place] [id number] Performing Lab: [facility] LIPID PANEL (STL) CHOLESTEROL IN HDL [MASS/VOLUM E] IN SERUM OR PLASMA 56 mg/dL 40 06/08 Specimen Type: PLASMA Comment: No hemolysis noted. Ordering Provider: Elicia SCHNEIDER Report Released Date/Time: Jun 08, 2024 07:39 AM Reporting Lab: [facility] [place] [id number] Performing Lab: [facility] TSH (MA-PB) THYROTROPIN [UNITS/VOLU ME] IN SERUM OR PLASMA 3.557 u[IU]/m L 0.470 - 5.000 06/08 Specimen Type: SERUM No comment entered. Ordering Provider: Elicia SCHNEIDER Report Released Date/Time: Jun 08, 2024 07:39 AM Reporting Lab: [facility] [place] [address] Performing Lab: [facility] VITAMIN D, 25-HYDROX Y 25-HYDROXYV ITAMIN D3 [MASS/VOLUM E] IN SERUM OR PLASMA 43.7 ng/mL 30 - 96 06/08 Specimen Type: SERUM No comment entered. Ordering Provider: Elicia SCHNEIDER Report Released Date/Time: Jun 08, 2024 07:39 AM Reporting Lab: [facility] [place] [address] Performing Lab: [facility] DIVISION MICROSCOP IC URINALYSI S LEUKOCYTES [#/AREA] IN URINE SEDIMENT BY MICROSCOPY HIGH POWER FIELD 6-10/[H PF] 0 - 5 11/13 H Specimen Type: URINE CLEAN CATCH No comment entered. Ordering Provider: REBECCA POWELL A Report Released Date/Time: Nov 11, 2023 02:08 PM Reporting Lab: [facility] [address] [facility] [address] Performing Lab: [facility] [address] [facility] [address] [facility] MICROSCOP IC URINALYSI S BACTERIA [PRESENCE] IN URINE SEDIMENT BY LIGHT MICROSCOPY FEW/[HP F] 11/13 Specimen Type: URINE CLEAN CATCH No comment entered. Ordering Provider: REBECCA POWELL A Report Released Date/Time: Nov 11, 2023 02:08 PM Reporting Lab: [facility] [address] [facility] [address] Performing Lab: [facility] [address] [facility] [address] [facility] MICROSCOP IC URINALYSI S EPITHELIAL CELLS.SQUAM OUS [#/AREA] IN URINE SEDIMENT BY MICROSCOPY HIGH POWER FIELD 3-6/[HP F] 0 - 5 11/13 Specimen Type: URINE CLEAN CATCH No comment entered. Ordering Provider: REBECCA POWELL A Report Released Date/Time: Nov 11, 2023 02:08 PM Reporting Lab: [facility] [address] [facility] [address] Performing Lab: [facility] [address] [facility] [address] [facility] MICROSCOP IC URINALYSI S ERYTHROCYTE S [#/AREA] IN URINE SEDIMENT BY MICROSCOPY HIGH POWER FIELD 3-6/[HP F] 0 - 2 11/13 H Specimen Type: URINE CLEAN CATCH No comment entered. Ordering Provider: REBECCA POWELL A Report Released Date/Time: Nov 11, 2023 02:08 PM Reporting Lab: [facility] [address] [facility] [address] Performing Lab: [facility] [address] [facility] [address] [facility] URINALYSI S COLOR OF URINE STRAW 11/13 Specimen Type: URINE CLEAN CATCH No comment entered. Ordering Provider: REBECCA POWELL A Report Released Date/Time: Nov 11, 2023 02:08 PM Reporting Lab: [facility] [address] [place] [address] Performing Lab: [facility] [address] [place] [address] [facility] URINALYSI S UA SPEC GRAV 1.010 1.005 - 1.035 11/13 Specimen Type: URINE CLEAN CATCH No comment entered. Ordering Provider: REBECCA POWELL A Report Released Date/Time: Nov 11, 2023 02:08 PM Reporting Lab: [facility] [address] [place] [address] Performing Lab: [facility] [address] [place] [address] [facility] URINALYSI S PH OF URINE BY TEST STRIP 8.0 [pH] 5 - 8 11/13 Specimen Type: URINE CLEAN CATCH No comment entered. Ordering Provider: REBECCA POWELL A Report Released Date/Time: Nov 11, 2023 02:08 PM Reporting Lab: [facility] [address] [place] [address] Performing Lab: [facility] [address] [place] [address] [facility] URINALYSI S NITRITE [PRESENCE] IN URINE BY TEST STRIP 1+ . 11/13 Specimen Type: URINE CLEAN CATCH No comment entered. Ordering Provider: REBECCA POWELL A Report Released Date/Time: Nov 11, 2023 02:08 PM Reporting Lab: [facility] [address] [place] [address] Performing Lab: [facility] [address] [place] [address] [facility] URINALYSI S UROBILINOGE N [MASS/VOLUM E] IN URINE BY TEST STRIP <2.0mg/ dL 11/13 Specimen Type: URINE CLEAN CATCH No comment entered. Ordering Provider: REBECCA POWELL A Report Released Date/Time: Nov 11, 2023 02:08 PM Reporting Lab: [facility] [address] [place] [address] Performing Lab: [facility] [address] [place] [place] [address] [facility] URINALYSI S APPEARANCE OF URINE 1+ 11/13 Specimen Type: URINE CLEAN CATCH No comment entered. Ordering Provider: REBECCA POWELL A Report Released Date/Time: Nov 11, 2023 02:08 PM Reporting Lab: [facility] [address] [place] [address] Performing Lab: [facility] [address] [facility] [place] [place] [address] [facility] URINALYSI S GLUCOSE [MASS/VOLUM E] IN URINE BY TEST STRIP NORMAL 11/13 Specimen Type: URINE CLEAN CATCH No comment entered. Ordering Provider: REBECCA POWELL A Report Released Date/Time: Nov 11, 2023 02:08 PM Reporting Lab: [facility] [address] [place] [address] Performing Lab: [facility] [address] [place] [address] [facility] URINALYSI S PROTEIN [MASS/VOLUM E] IN URINE BY TEST STRIP - 11/13 Specimen Type: URINE CLEAN CATCH No comment entered. Ordering Provider: REBECCA POWELL A Report Released Date/Time: Nov 11, 2023 02:08 PM Reporting Lab: [facility] [address] [place] [address] Performing Lab: [facility] [address] [place] [address] [facility] URINALYSI S BILIRUBIN.T OTAL [PRESENCE] IN URINE BY TEST STRIP - 11/13 Specimen Type: URINE CLEAN CATCH No comment entered. Ordering Provider: REBECCA POWELL A Report Released Date/Time: Nov 11, 2023 02:08 PM Reporting Lab: [facility] [address] [place] [address] Performing Lab: [facility] [address] [facility] [place] [address] [facility] URINALYSI S HEMOGLOBIN [PRESENCE] IN URINE BY TEST STRIP 1+ 11/13 Specimen Type: URINE CLEAN CATCH No comment entered. Ordering Provider: REBECCA POWELL A Report Released Date/Time: Nov 11, 2023 02:08 PM Reporting Lab: [facility] [address] [place] [address] Performing Lab: [facility] [address] [place] [address] [facility] URINALYSI S KETONES [MASS/VOLUM E] IN URINE BY TEST STRIP - 11/13 Specimen Type: URINE CLEAN CATCH No comment entered. Ordering Provider: REBECCA POWELL Report Released Date/Time: Nov 11, 2023 02:08 PM Reporting Lab: [facility] [address] [place] [address] Performing Lab: [facility] [address] [place] [address] [facility] URINALYSI S LEUKOCYTE ESTERASE [PRESENCE] IN URINE BY TEST STRIP 250 - 74 11/13 H Specimen Type: URINE CLEAN CATCH No comment entered. Ordering Provider: REBECCA POWELL Report Released Date/Time: Nov 11, 2023 02:08 PM Reporting Lab: [facility] [address] [place] [address] Performing Lab: [facility] [address] [place] [address] [facility] Vital Signs Combined list of inpatient and outpatient Vital Signs from Department of Defense and Veterans Affairs, ranging from 12 months to all on record, depending upon the facility. Vital Sign Value Date Comments Source SYSTOLIC BLOOD PRESSURE 100 06/08/2024 12:56:19 [facility] DIASTOLIC BLOOD PRESSURE 69 06/08/2024 12:56:19 [facility] PULSE OXIMETRY 95 06/08/2024 12:56:19 [facility] WEIGHT 185.9 06/08/2024 12:56:19 [facility] BMI 28kg/m2 06/08/2024 12:56:19 [facility] PAIN 4 06/08/2024 12:56:19 [facility] HEIGHT 68 06/08/2024 12:56:19 [facility] TEMPERATURE 98 06/08/2024 12:56:19 [facility] PULSE 96 06/08/2024 12:56:19 [facility] RESPIRATION 20 06/08/2024 12:56:19 [facility] SYSTOLIC BLOOD PRESSURE 135 10/20/2023 [...] months. 2) Encounters from the Department of [employer] facilities going back up to 280 months. Location Location Details Encounter Type Encounter Number Reason For Visit Attending Provider ADM Date DC Date Status Disposition Source FRACISCO CHANCE [facility] Outpatient Encounter [id number] LUIS RUGGIERO 06/10 BALDEV GRANT [facility] [place] [facility] Outpatient Encounter [id number] SE DANIEL RILEY 06/15 BALDEV GRANT [facility] [place] [facility] Outpatient Encounter [id number] DENISE OROURKE 09[facility]25 [facility] [place] [facility] Outpatient Encounter [id number] YOUNG LOFTON 10/05 [facility] HC PRO PHONE CALL 5-10 MIN [id number] Diagnos is: ICD-10- CM 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<br/ > FABIANA MEDINA Lisandro 10/18 [facility] OFF[facility] O/P EST MOD 30 MIN [id number] Diagnos is: ICD-10- CM M79.661 Pain in right lower leg<br/ > REBECCA POWELL Katerine 10/19 [facility] [place] [facility] Outpatient Encounter [id number] 10/22 COTY GRANT [facility] UPR/L XTREMITY ART 2 LEVELS [id number] Diagnos is: ICD-10- CM R68.89 Other general symptom s and signs<b r/> WESLY ROWEArnel Garcias 10/25 [facility] O/P EST MOD 30 MIN [id number] Diagnos is: ICD-10- CM 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< br/> JEFFERY BURGOS 10/27 [facility] [place] [facility] Outpatient Encounter [id number] 11/07 BALDEV GRANT [facility] [place] [facility] Outpatient Encounter [id number] 11/17 COTY GRANT [facility] [place] [facility] Outpatient Encounter [id number] 12/01 COTY GRANT [facility] [place] [facility] Outpatient Encounter [id number] 12/01 [facility] [place] [facility] Outpatient Encounter [id number] 12/04 COT[facility] GRANT [facility] HC PRO PHONE CALL 11-20 MIN [id number] Diagnos is: ICD-10- CM R68.89 Other general symptom s and signs<b r/> IFRAH JUÁREZ N 12/05 [facility] Outpatient Encounter [id number] 01/15 [facility] Outpatient Encounter [id number] 01/23 [facility] FOLLOW-UP VISIT [id number] Diagnos is: ICD-10- CM Z48.810 Encntr for surgica l aftcr fol surgery on the sense organs< br/> JEFFERY BURGOS 02/15 [facility] Outpatient Encounter [id number] 03/09 [facility] Outpatient Encounter [id number] 04/05 BALDEV GRANT [facility] Outpatient Encounter [id number] Bettina QUAN 05/22 [facility] Outpatient Encounter [id number] 05/31 [facility] TARGETED CASE MANAGEMENT [id number] HARLAN SANDOVAL 06/04 [facility] TARGETED CASE MANAGEMENT [id number] Diagnos is: ICD-10- CM Y93.E6 Activit y, residen tial relocat ion<br/ > HOLLIE WELDON CA 06/04 BALDEV GRANT [facility] PH1 ASSMT&MGMT NQHP 11-20 [id number] Diagnos is: ICD-10- CM 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
Elicia SCHNEIDER 06/08 [facility] N Social History Combined list of available smoking, tobacco, and other social history from Department of Defense and Veterans Affairs facilities. Social History Type Response Date Comment Sourc e Tobacco smoking status NHIS VA-TOBACCO USE FORMER CIGARETTES 06/08/2024 [facility] History of tobacco use [place]-TOBACCO NEVER USED OTHER TYPE 06/08/2024 [facility] History of tobacco use VA-TOBACCO FORMER [...] of future care activities from Department of [facility] Affairs facilities. Additional future care activities may be listed in the Assessment and Plan section. Date/Time Care Activity Care Activity Detail Facili ty 10/18/2024 AMBULATORY - NONE AMBULATORY - NONE [facility] 10/18/2024 AMBULATORY - MEDICINE AMBULATORY - MEDICI NE [facility] 12/13/2024 AMBULATORY - MEDICINE AMBULATORY - MEDICI NE [facility] 06/08/2024 Laboratory - Director Of Business Applications ry Order URINALYSIS (STL-PB) URINE - CLEAN CATCH SP [facility] 06/08/2024 Laboratory - Director Of Business Applications ry Order MICRAL/CREAT PROFILE (STL) URINE YELLOW SP [facility] 06/08/2024 Laboratory - Director Of Business Applications ry Order B12 GOLD/RED SST SERUM SP [facility]
[2024-06-23 11:31] LABS: Partial Thromboplastin Time 30.5 Seconds (22.3-36.8)
[2024-06-23 11:32] LABS: Alanine Aminotransferase 14 U/L (6-50); Albumin Level 3.7 g/dL (3.5-5.1); Alkaline Phosphatase 57 U/L (38-126); Anion Gap 10 mmol/L (4-12); Aspartate Amino Transferase 25 U/L (17-59); Bilirubin,Total 0.9 mg/dL (0.2-1.3); Blood Urea Nitrogen 15 mg/dL (9-20); Calcium 9.3 mg/dL (8.4-10.2); Carbon Dioxide 23 mmol/L (22-30); Chloride 106 mmol/L (98-107); Estimated CRCL calculation 46 ml/min; Estimated Glomerular Filt Rate > 60; Glucose 123 mg/dL (65-110); Potassium 3.9 mmol/L (3.4-5.0); Sodium 139 mmol/L (137-145)
[2024-06-23 11:40] VITALS: BP 105/45; PULSE 65; RESP 23; O2SAT 95
--- NOTE | 2024-06-23 11:40 | PC.NURSE ---
Per [facility] EDP Dr Mares, pt given TNK at this time. Pt alert and aware of POC as is pt family in ED who requested treatment. VSS.
[2024-06-23 11:44] LABS: Troponin I < 0.012 ng/mL (0.000-0.034)
[2024-06-23] MEDS: SODIUM CHLORIDE 0.9% IV 1,000 ML 999 ML (11:48)
[2024-06-23 11:49] VITALS: BP 91/45; PULSE 65; RESP 29; O2SAT 99
[2024-06-23 11:50] VITALS: BP 91/45; PULSE 65; PULSE 66; RESP 30; O2SAT 97
[2024-06-23 12:05] VITALS: BP 105/45; PULSE 66; RESP 23; O2SAT 95
[2024-06-25 07:42] LABS: Glucose Point of Care 112 mg/dl (65-105)
== END 2024-06-23 12:11 | disposition short-term general hospital (02) ==
PROVIDERS: Emergency Provider Emergency Medicine
DX: I63.9 Cerebral infarction, unspecified (principal); I48.91 Unspecified atrial fibrillation; Z79.82 Long term (current) use of aspirin; Z79.02 Long term (current) use of antithrombotics/antiplatelets; I10 Essential (primary) hypertension; E78.5 Hyperlipidemia, unspecified
CPT/HCPCS: 36415; 70450; 70496; 70498; 80053; 82948; 84484; 85025; 85610; 85730; 93005; 96374; 96376; 99285; J3101; J7030; Q9967